=== PATIENT | male | born 1940 | race Caucasian/White ===

== ENCOUNTER 2019-03-18 17:23 | Inpatient (IN) | payer MEDICARE, MEDICAID ==
[~2019-03-18] VITALS: Ht 165.1 cm; Wt 73.5 kg
--- NOTE | 2019-03-18 17:23 | NUR ---
ED Nurse Note: Patient brought by [facility] from [facility] due to upper left pubic pain. Alert oriented x2, verbally responsive. History of Dementia, Schizo paranoid, cardiac arrythmia. Breathing even and unlabored. No SOB. Afebrile. VSS at this time.
[2019-03-18 18:00] VITALS: BP 140/71
[2019-03-18] MEDS ORDERED: Isovue-300 100ml vial INJ PRN (18:00)
[2019-03-18] MEDS ORDERED: Morphine Sulfate 2mg/ml Inj(IV/IM USE ONLY) IVP ONE (18:00)
[2019-03-18] MEDS ORDERED: FINASTERIDE5 MG ORAL (18:15)
[2019-03-18] MEDS ORDERED: MIRTAZAPINE7.5 MG ORAL (18:15)
[2019-03-18] MEDS ORDERED: DOCUSATE SODIU100 M2 ORAL (18:15)
[2019-03-18] MEDS ORDERED: NAMENDA5 MG ORAL (18:15)
[2019-03-18] MEDS ORDERED: CARAFATE1 G1 ORAL (18:15)
[2019-03-18] MEDS ORDERED: RISPERIDONE0.5 MG PO (18:15)
[2019-03-18] MEDS ORDERED: LIPITOR80 MG ORAL (18:15)
[2019-03-18] MEDS ORDERED: FLOMAX0.4 MG ORAL (18:16)
[2019-03-18] MEDS ORDERED: ASPIR 8181 MG ORAL (18:16)
[2019-03-18 18:34] LABS: APPEARANCE,URINE CLEAR; BILIRUBIN, URINE NEGATIVE (NEGATIVE); COLOR,URINE PALE YELLOW; GLUCOSE, URINE (UA) NEGATIVE (NEGATIVE); KETONES,URINE NEGATIVE (NEGATIVE); LEUKOCYTE ESTERASE ,URINE NEGATIVE (NEGATIVE); NITRITE,URINE NEGATIVE (NEGATIVE); PH,URINE 5 (4.5-8.0); PROTEIN,URINE NEGATIVE (NEGATIVE); UROBILINOGEN,URINE NORMAL MG/DL (0.0-1.0)
[2019-03-18 18:38] LABS: EOSINOPHILS % (AUTO) 2.3 % (0.0-3.0); HEMATOCRIT 39.2 % (42.0-52.0); HEMOGLOBIN 13.5 G/DL (14.2-18.0); LYMPHOCYTES % (AUTO) 26.9 % (20.0-45.0); MEAN CORPUSCULAR VOLUME 85 FL (80-99); MONOCYTES % (AUTO) 5.9 % (1.0-10.0); PLATELET COUNT 229 K/UL (150-450); RED BLOOD COUNT 4.61 M/UL (4.70-6.10); RED CELL DISTRIBUTION WIDTH 11.7 % (11.6-14.8); WHITE BLOOD COUNT 9.4 K/UL (4.8-10.8)
--- NOTE | 2019-03-18 18:54 | Consultation ---
History of Present Illness General Date patient seen: Mar 18, 2019 Reason for Hospitalization: Abdominal Pain Present Illness HPI This is a very pleasant 79-year-old male [facility] resident with multiple medical comorbidities who began to complain of lower abdominal pain pelvic pain earlier today and was transferred to [facility] for further evaluation. Patient was identified to have a left-sided groin bulge. In ED was identified to be a left-sided inguinal hernia and surgery was called to evaluate and assist with care. Patient seen, patient evaluated, chart reviewed. Patient is a poor historian and fortunately and cannot give full details of the history. States that he was feeling some pain earlier today but is resolved. Is unsure exactly how long is had the hernia for and is not even sure that it was a hernia. No leukocytosis. Currently only minimal discomfort. Does note the bulge in his left groin. Allergies: Coded Allergies: No Known Allergies (Unverified , 03/18/19) Medication History Scheduled Aspirin* (Aspir 81*), 81 MG ORAL DAILY, (Reported) Atorvastatin (Lipitor), 40 MG ORAL BEDTIME, (Reported) Docusate Sodium (Docusate Sodium), 100 MG ORAL DAILY, (Reported) Finasteride (Finasteride), 5 MG ORAL DAILY, (Reported) Memantine Hcl* (Namenda*), 5 MG ORAL DAILY, (Reported) Mirtazapine* (Mirtazapine*), 7.5 MG ORAL BEDTIME, (Reported) Sucralfate* (Carafate*), 1 GM ORAL FOUR TIMES A DAY, (Reported) Tamsulosin HCl (Flomax), 0.4 MG ORAL DAILY, (Reported) Miscellaneous Medications Risperidone (Risperidone), 0.5 MG PO, (Reported) Patient History Limited by: medical condition History Provided By: Patient, Medical Record, PMD Healthcare decision maker Resuscitation status Advanced Directive on File Past Medical/Surgical History Past Medical/Surgical History: (1) Incarcerated left inguinal hernia Review of Systems Review of Symptoms General ROS: no weight loss or fever Psychological ROS: no depression or mood changes, no memory loss Ophthalmic ROS: no visual changes or eye irritation ENT ROS: no nasal congestion, hearing loss, dizziness Allergy and Immunology ROS: no allergic symptoms or urticaria Hematological and Lymphatic ROS: no swollen glands, unusual bleeding or bruising Endocrine ROS: no polyuria, polydipsia, weight changes, temperature intolerance Respiratory ROS: no cough, shortness of breath, or wheezing Cardiovascular ROS: no chest pain or dyspnea on exertion Gastrointestinal ROS: denies abdominal pain, no bright red blood in stool. Musculoskeletal ROS: no myalgias or arthralgias Neurological ROS: no TIA or stroke symptoms Dermatological ROS: no new or changing skin lesions, rashes or pruritis Physical Exam Physical Exam General appearance: alert, cooperative, no distress, appears stated age Head: Normocephalic, without obvious abnormality, atraumatic Eyes: conjunctivae/corneas clear. PERRL, EOM's intact. Fundi benign Throat: Lips, mucosa, and tongue normal. Teeth and gums normal Neck: supple, symmetrical, trachea midline, no adenopathy, thyroid: not enlarged, symmetric, no tenderness/mass/nodules, no carotid bruit and no JVD Lungs: clear to auscultation bilaterally Heart: regular rate and rhythm, S1, S2 normal, no murmur, click, rub or gallop Abdomen: soft, non-tender. Bowel sounds normal. No masses, no organomegaly large incarcerated left inguinal hernia Extremities: extremities normal, atraumatic, no cyanosis or edema Pulses: 2+ and symmetric Skin: Skin color, texture, turgor normal. No rashes or lesions Neurologic: Grossly normal Last 24 Hour Vital Signs Date Time Temp Pulse Resp B/P (MAP) Pulse Ox O2 Delivery O2 Flow Rate FiO2 03/18/19 18:30 59 10 Room Air 03/18/19 18:00 97.9 58 18 140/71 99 Room Air 03/18/19 17:18 98.1 70 18 110/73 (85) 93 Room Air Laboratory Tests Test 03/18/19 18:00 White Blood Count 9.4 K/UL (4.8-10.8) Red Blood Count 4.61 M/UL (4.70-6.10) L Hemoglobin 13.5 G/DL (14.2-18.0) L Hematocrit 39.2 % (42.0-52.0) L Mean Corpuscular Volume 85 FL (80-99) Mean Corpuscular Hemoglobin 29.3 PG (27.0-31.0) Mean Corpuscular Hemoglobin Concent 34.5 G/DL (32.0-36.0) Red Cell Distribution Width 11.7 % (11.6-14.8) Platelet Count 229 K/UL (150-450) Mean Platelet Volume 6.5 FL (6.5-10.1) Neutrophils (%) (Auto) 64.0 % (45.0-75.0) Lymphocytes (%) (Auto) 26.9 % (20.0-45.0) Monocytes (%) (Auto) 5.9 % (1.0-10.0) Eosinophils (%) (Auto) 2.3 % (0.0-3.0) Basophils (%) (Auto) 1.0 % (0.0-2.0) Prothrombin Time Pending Prothromb Time International Ratio Pending Activated Partial Thromboplast Time Pending Urine Color Pale yellow Urine Appearance Clear Urine pH 5 (4.5-8.0) Urine Specific [place] 1.010 (1.005-1.035) Urine Protein Negative (NEGATIVE) Urine Glucose (UA) Negative (NEGATIVE) Urine Ketones Negative (NEGATIVE) Urine Blood Negative (NEGATIVE) Urine Nitrite Negative (NEGATIVE) Urine Bilirubin Negative (NEGATIVE) Urine Urobilinogen Normal MG/DL (0.0-1.0) Urine Leukocyte Esterase Negative (NEGATIVE) Sodium Level Pending Potassium Level Pending Chloride Level Pending Carbon Dioxide Level Pending Blood Urea Nitrogen Pending Creatinine Pending Estimat Glomerular Filtration Rate Pending Glucose Level Pending Calcium Level Pending Total Bilirubin Pending Aspartate Amino Transf (AST/SGOT) Pending Alanine Aminotransferase (ALT/SGPT) Pending Alkaline Phosphatase Pending Total Protein Pending Albumin Pending Globulin Pending Lipase Pending Height (Feet): 5 Height (Inches): 6.00 Weight (Pounds): 160 Medications Current Medications Medications (Trade) Dose Ordered Sig/Pati Route PRN Reason Start Time Stop Time Status Last Admin Dose Admin Iopamidol (Isovue-300 100ml) 100 ml NOW PRN INJ Radiology Procedure 03/18/19 18:00 Assessment/Plan Problem List: (1) Incarcerated left inguinal hernia Assessment & Plan: This is a 79-year-old male with multiple medical comorbidities is a [facility] resident that presented with lower abdominal pelvic pain and discomfort and bulge. Patient was identified to have a large incarcerated left inguinal hernia. Fortunately with patient's consent I was able to tentatively reduce the hernia at the bedside in the emergency department. Patient states he feels much better. The contents of the hernia sac were noted to enter the abdominal cavity and palpable defect identified. Recommend admission for monitoring, work-up, exams. okay for clear liquid diet AM labs will follow with serial exams if remains reduced can consider elective repair. if incarcerates again, develops abd pain, worsening labs, may require surgery as exact history and timing/onset unknown. fortunately hernia was not very tender when first noted and did not seem strangulated but rather simple incarceration that was reduced without significant discomfort to patient thank you will follow with recs ICD Codes: K40.30 - Unilateral inguinal hernia, with obstruction, without gangrene, not specified as recurrent SNOMED: [id number] Aroldo Mac Mar 18, 2019 18:54
[2019-03-18 19:03] LABS: ANION GAP 8 mmol/L (5-15); BLOOD UREA NITROGEN 24 mg/dL (7-18); CALCIUM 9.3 MG/DL (8.5-10.1); CARBON DIOXIDE 27 MMOL/L (21-32); CHLORIDE 104 MMOL/L (98-107); CREATININE 1.2 MG/DL (0.55-1.30); POTASSIUM 4.1 MMOL/L (3.5-5.1); SODIUM 139 MMOL/L (136-145)
[2019-03-18 19:08] LABS: ALANINE AMINOTRANSFERASE 25 U/L (12-78); ALBUMIN 3.5 G/DL (3.4-5.0); ALBUMIN/GLOBULIN RATIO 0.8 (1.0-2.7); ALKALINE PHOSPHATASE 46 U/L (46-116); ASPARTATE AMINO TRANSFERASE 16 U/L (15-37); BILIRUBIN,TOTAL 0.3 MG/DL (0.2-1.0)
--- NOTE | 2019-03-18 19:13 | NUR ---
ED Nurse Note: Report given to LIANA Luis. Patient in bed. IV site on left forearm remained intact.
--- NOTE | 2019-03-18 20:24 | Diagnostic Imaging Report ---
Indication: Left pubic pain Technique: Continuous helical transaxial imaging of the abdomen and pelvis was obtained from the lung bases to the pubic symphysis during intravenous contrast administration. Coronal 2-D reformats were also obtained. Study obtained in a Siemens sensation [address] Automatic Exposure Control was utilized. Total Dose length Product (DLP): 824.[address] Dose Index Volume (CTDIvol): 11.12,10.75 mGy Comparison: None Findings: Lower chest:: Dependent bibasilar atelectasis. Mild coronary atherosclerotic calcification. Aortic valve is calcified. Hepatobiliary:: Scattered hepatic hypodensities likely represent liver cysts but are too small to accurately characterize on this examination. Status post cholecystectomy. Genitourinary:: No hydronephrosis or nephrolithiasis. Prostate is enlarged. Adrenals:: Right adrenal gland is unremarkable. There is a 8 mm hypodense left adrenal nodule. Pancreas:: Unremarkable. Gastrointestinal:: No evidence of obstruction. Appendix is not clearly is less but there are no secondary signs to suggest acute appendicitis. There is mild haziness of the mesentery in the left lower quadrant, nonspecific finding. Spleen: : Remarkable. Peritoneum:: There is a moderate-sized left inguinal hernia containing nonobstructed loops of small bowel. Vasculature:: Moderate aortoiliac atherosclerotic calcifications. There is ectasia of the descending abdominal aorta above the level of the iliac bifurcation, measuring up to 2.2 cm. Bones and soft tissues:: There are multilevel discogenic degenerative changes of visualized spine. There is mild loss in vertebral body height of L1. IMPRESSION: 1. Moderate left inguinal hernia containing nonobstructed loops of bowel. 2. Haziness of the mesentery left lower quadrant, a nonspecific finding but which can sometimes be seen with abdominal pain. 3. Prostatomegaly. 4. 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 5. Age indeterminate wedge deformity of L1. 6. 8 mm left adrenal nodule, likely representing an adenoma based on attenuation characteristics. Attention to this area on follow-up imaging is recommended. This corresponds with the statrad preliminary report. The CT scanner at [facility] is accredited by the [employer] and the scans are performed using protocols designed to limit radiation exposure to as low as reasonably achievable to attain images of sufficient resolution adequate for diagnostic evaluation.
[2019-03-18 20:28] VITALS: BP 136/74
--- NOTE | 2019-03-18 20:30 | NUR ---
ER Nurse Note: Report given to LIANA Gandhi in [place] for contintuiy of care. Pt a&ox2, VSS, no signs of distress. Pt is upset about the wait time getting a room. Explained to pt about the bed arrangement; pt was still upset. Pt refused all swabs. Pt left with all belongs but does not fully remember what he brought. Pt refused to sign belongings list and stated " I will not sign anything without my glassess". When asked about glasses, pt stated he did not bring this glasses. All safety measures met.
--- NOTE | 2019-03-18 20:45 | NUR ---
NURSE NOTES: patient received. patient in no acute [id number] at this time. patient complains of no pain at this time. patient alert x2. confused at times. patient IV intact patent and asymptomatic. Dr. Aranda called to get orders for patient. patient bed in lowest position and locked. bed alarm on. call light within reach. Patient belongings sheet signed. patient oriented to room. will continue to monitor.
--- NOTE | 2019-03-18 20:51 | Emergency Room Report ---
History of Present Illness General Chief Complaint: Abdominal Pain Source: Patient, Medical Record, PMD Present Illness HPI 79 year-old male presents ED for evaluation. By EMS from shelter facility. Sent in for "pubic pain". Started today. Pain is throbbing, 8 out of 10, nonradiating. Denies fevers or chills. Denies nausea or vomiting. No other aggravating relieving factors. Denies any other associated symptoms Allergies: Coded Allergies: No Known Allergies (Unverified , 03/18/19) Patient History Past Medical History: none Past Surgical History: none Pertinent Family History: none Social History: Denies: smoking, alcohol use, drug use Immunizations: UTD Reviewed Nursing Documentation: PMH: Agreed; PSxH: Agreed Nursing Documentation-PMH Past Medical History Deferred: Pt Cognitively Impaired Review of Systems All Other Systems: negative except mentioned in HPI Physical Exam Vital Signs Date Time Temp Pulse Resp B/P (MAP) Pulse Ox O2 Delivery O2 Flow Rate FiO2 03/18/19 17:18 98.1 70 18 110/73 (85) 93 Room Air Sp02 EP Interpretation: reviewed, normal General Appearance: no apparent distress, alert, GCS 15, non-toxic Head: normocephalic, atraumatic Eyes: bilateral eye normal inspection, bilateral eye PERRL ENT: hearing grossly normal, normal pharynx, no angioedema, normal voice Neck: full range of motion, supple/symm/no masses Respiratory: chest non-tender, lungs clear, normal breath sounds, speaking full sentences Cardiovascular #1: regular rate, rhythm, no edema Cardiovascular #2: 2+ carotid (R), 2+ carotid (L), 2+ radial (R), 2+ radial (L) , 2+ dorsalis pedis (R), 2+ dorsalis pedis (L) Gastrointestinal: normal bowel sounds, soft, non-distended, no guarding, no rebound, hernia - L inguinal hernia Rectal: deferred Genitourinary: normal inspection, no CVA tenderness Musculoskeletal: back normal, gait/station normal, normal range of motion, non- tender Neurologic: alert, oriented x3, responsive, motor strength/tone normal, sensory intact, speech normal Psychiatric: judgement/insight normal, memory normal, mood/affect normal, no suicidal/homicidal ideation Reflexes: 3+ bicep (R), 3+ bicep (L), 3+ tricep (R), 3+ tricep (L), 3+ knee (R) , 3+ knee (L) Lymphatic: no adenopathy Medical Decision Making Diagnostic Impression: Primary Impression: Incarcerated left inguinal hernia ER Course Hospital Course 79 yo M presents to ED c/o L inguinal pain Differential diagnoses include: abscess, hernia, SBO Clinical course Patient placed on stretcher. personnel monitor. After initial history and physical I ordered labs, IV fluids, UA, pain medication and CT scan Labs - no leukocytosis, Hb/Hct stable, electrolytes ok CT abdomen and pelvis -L inguinal heria Dr Fang at bedside to evaluate patient Case discussed with Dr. Aranda and he agreed to accept the patient to his service for further care and support I feel this is a highly complex case requiring extensive working including EKG/ Rhythm strip, Xray/CT/US, Blood/urine lab work, repeat exams while in ED, and administration of strong opiates/narcotics for pain control, admission to hospital or close patient follow up. Diagnosis - incarcerated L inguinal hernia Patient admitted to floor in serious condition Labs Test 03/18/19 18:00 White Blood Count 9.4 K/UL (4.8-10.8) Red Blood Count 4.61 M/UL (4.70-6.10) Hemoglobin 13.5 G/DL (14.2-18.0) Hematocrit 39.2 % (42.0-52.0) Mean Corpuscular Volume 85 FL (80-99) Mean Corpuscular Hemoglobin 29.3 PG (27.0-31.0) Mean Corpuscular Hemoglobin Concent 34.5 G/DL (32.0-36.0) Red Cell Distribution Width 11.7 % (11.6-14.8) Platelet Count 229 K/UL (150-450) Mean Platelet Volume 6.5 FL (6.5-10.1) Neutrophils (%) (Auto) 64.0 % (45.0-75.0) Lymphocytes (%) (Auto) 26.9 % (20.0-45.0) Monocytes (%) (Auto) 5.9 % (1.0-10.0) Eosinophils (%) (Auto) 2.3 % (0.0-3.0) Basophils (%) (Auto) 1.0 % (0.0-2.0) Prothrombin Time 10.3 SEC (9.30-11.50) Prothromb Time International Ratio 1.0 (0.9-1.1) Activated Partial Thromboplast Time 29 SEC (23-33) Urine Color Pale yellow Urine Appearance Clear Urine pH 5 (4.5-8.0) Urine Specific [place] 1.010 (1.005-1.035) Urine Protein Negative (NEGATIVE) Urine Glucose (UA) Negative (NEGATIVE) Urine Ketones Negative (NEGATIVE) Urine Blood Negative (NEGATIVE) Urine Nitrite Negative (NEGATIVE) Urine Bilirubin Negative (NEGATIVE) Urine Urobilinogen Normal MG/DL (0.0-1.0) Urine Leukocyte Esterase Negative (NEGATIVE) Sodium Level 139 MMOL/L (136-145) Potassium Level 4.1 MMOL/L (3.5-5.1) Chloride Level 104 MMOL/L (98-107) Carbon Dioxide Level 27 MMOL/L (21-32) Anion Gap 8 mmol/L (5-15) Blood Urea Nitrogen 24 mg/dL (7-18) Creatinine 1.2 MG/DL (0.55-1.30) Estimat Glomerular Filtration Rate mL/min (>60) Glucose Level 100 MG/DL (74-106) Calcium Level 9.3 MG/DL (8.5-10.1) Total Bilirubin 0.3 MG/DL (0.2-1.0) Aspartate Amino Transf (AST/SGOT) 16 U/L (15-37) Alanine Aminotransferase (ALT/SGPT) 25 U/L (12-78) Alkaline Phosphatase 46 U/L (46-116) Total Protein 7.8 G/DL (6.4-8.2) Albumin 3.5 G/DL (3.4-5.0) Globulin 4.3 g/dL Albumin/Globulin Ratio 0.8 (1.0-2.7) Lipase 234 U/L (73-393) CT/MRI/US Diagnostic Results CT/MRI/US Diagnostic Results : Imaging Test Ordered: CT A/P Impression Left inguinal-scrotal hernia containing fat and bowel. No secondary bowel obstruction. Correlate for signs of incarceration or strangulation. There is some edema in the mesentery. Last Vital Signs Date Time Temp Pulse Resp B/P (MAP) Pulse Ox O2 Delivery O2 Flow Rate FiO2 03/18/19 20:28 98.3 62 14 136/74 99 Room Air Status: improved Disposition: ADMITTED INPATIENT Condition: Serious Referrals: Mg Aranda DO (PCP) Jaren Milner MD Mar 18, 2019 20:51
[2019-03-18] MEDS ORDERED: Dextrose 50% 25ml Syringe IV PRN (21:15)
[2019-03-18] MEDS ORDERED: Morphine Sulfate 2mg/ml Inj(IV/IM USE ONLY) IVP PRN (21:15)
[2019-03-18] MEDS ORDERED: LORazepam Inj 2mg/ml 1ml IV PRN (21:15)
[2019-03-18] MEDS ORDERED: Zolpidem 5mg tab ORAL PRN (21:15)
--- NOTE | 2019-03-19 01:18 | NUR ---
HAND-OFF: Report given to LIANA BLANCHARD.
[2019-03-19 04:00] VITALS: BP 126/74
[2019-03-19 06:47] LABS: EOSINOPHILS % (AUTO) 3.7 % (0.0-3.0); HEMATOCRIT 40.6 % (42.0-52.0); HEMOGLOBIN 13.7 G/DL (14.2-18.0); LYMPHOCYTES % (AUTO) 29.9 % (20.0-45.0); MEAN CORPUSCULAR VOLUME 88 FL (80-99); MONOCYTES % (AUTO) 6.3 % (1.0-10.0); NEUTROPHILS % (AUTO) 59.1 % (45.0-75.0); PLATELET COUNT 256 K/UL (150-450); RED BLOOD COUNT 4.64 M/UL (4.70-6.10); RED CELL DISTRIBUTION WIDTH 12.3 % (11.6-14.8); WHITE BLOOD COUNT 7.5 K/UL (4.8-10.8)
[2019-03-19 07:24] LABS: ALANINE AMINOTRANSFERASE 12 U/L (12-78); ALBUMIN 3.3 G/DL (3.4-5.0); ALBUMIN/GLOBULIN RATIO 0.8 (1.0-2.7); ALKALINE PHOSPHATASE 46 U/L (46-116); ANION GAP 7 mmol/L (5-15); ASPARTATE AMINO TRANSFERASE 14 U/L (15-37); BILIRUBIN,TOTAL 0.6 MG/DL (0.2-1.0); BLOOD UREA NITROGEN 20 mg/dL (7-18); CALCIUM 8.9 MG/DL (8.5-10.1); CARBON DIOXIDE 27 MMOL/L (21-32); CHLORIDE 105 MMOL/L (98-107); CHOLESTEROL 144 MG/DL (< 200); CREATININE 1.4 MG/DL (0.55-1.30); HDL CHOLESTEROL 34 MG/DL (40-60); POTASSIUM 4.1 MMOL/L (3.5-5.1); SODIUM 139 MMOL/L (136-145); TRIGLYCERIDES 134 MG/DL (30-150)
[2019-03-19 08:00] VITALS: BP_SYST 91; BP_SYST 96; BP_DIAS 53; BP_DIAS 59
--- NOTE | 2019-03-19 08:00 | NUR ---
NURSE NOTES: Received report from Gold Flores pt a/a/o x2-3 laying in bed with no signs of distress or other issues at this time. IV on the left FA gauge#22 heplock. skin intact. pt on a regular diet, and tolerating well with no n/v. plan for Venous duplex today. call light within reach. bed in lowest position. side rales up x2. I will f/u as needed.
[2019-03-19] MEDS: Tamsulosin 0.4mg cap ORAL SCH (09:13)
[2019-03-19 12:00] VITALS: BP 91/5
--- NOTE | 2019-03-19 12:00 | Surgery Progress Note ---
Surgery Progress Note Subjective Symptoms: improved, tolerating diet, voiding well, passing flatus, pain decreased Additional Comments left inguinal hernia recurred this AM but reduced again easily no n/v/f/c tolerating diet ambulatory CT noted Objective Last 24 Hour Vital Signs Date Time Temp Pulse Resp B/P (MAP) Pulse Ox O2 Delivery O2 Flow Rate FiO2 03/19/19 04:00 98.6 61 16 126/74 (91) 98 03/18/19 21:59 Room Air 03/18/19 20:40 98.3 62 14 136/74 99 Room Air 03/18/19 20:28 98.3 62 14 136/74 99 Room Air 03/18/19 18:45 98.1 03/18/19 18:30 59 10 Room Air 03/18/19 18:00 97.9 58 18 140/71 99 Room Air 03/18/19 17:18 98.1 70 18 110/73 (85) 93 Room Air I&O Intake and Output 03/18/19 03/19/19 19:00 07:00 Intake Total 500 ml 360 ml Balance 500 ml 360 ml Intake Oral 360 ml IV Total 500 ml # Voids 1 3 Cardiovascular: RSR Respiratory: clear Abdomen: soft, flat, present bowel sounds, non-distended Extremities: no cyanosis Laboratory Tests Test 03/18/19 18:00 03/19/19 05:35 White Blood Count 9.4 K/UL (4.8-10.8) 7.5 K/UL (4.8-10.8) Red Blood Count 4.61 M/UL (4.70-6.10) L 4.64 M/UL (4.70-6.10) L Hemoglobin 13.5 G/DL (14.2-18.0) L 13.7 G/DL (14.2-18.0) L Hematocrit 39.2 % (42.0-52.0) L 40.6 % (42.0-52.0) L Mean Corpuscular Volume 85 FL (80-99) 88 FL (80-99) Mean Corpuscular Hemoglobin 29.3 PG (27.0-31.0) 29.6 PG (27.0-31.0) Mean Corpuscular Hemoglobin Concent 34.5 G/DL (32.0-36.0) 33.8 G/DL (32.0-36.0) Red Cell Distribution Width 11.7 % (11.6-14.8) 12.3 % (11.6-14.8) Platelet Count 229 K/UL (150-450) 256 K/UL (150-450) Mean Platelet Volume 6.5 FL (6.5-10.1) 6.3 FL (6.5-10.1) L Neutrophils (%) (Auto) 64.0 % (45.0-75.0) 59.1 % (45.0-75.0) Lymphocytes (%) (Auto) 26.9 % (20.0-45.0) 29.9 % (20.0-45.0) Monocytes (%) (Auto) 5.9 % (1.0-10.0) 6.3 % (1.0-10.0) Eosinophils (%) (Auto) 2.3 % (0.0-3.0) 3.7 % (0.0-3.0) H Basophils (%) (Auto) 1.0 % (0.0-2.0) 1.0 % (0.0-2.0) Prothrombin Time 10.3 SEC (9.30-11.50) 10.6 SEC (9.30-11.50) Prothromb Time International Ratio 1.0 (0.9-1.1) 1.0 (0.9-1.1) Activated Partial Thromboplast Time 29 SEC (23-33) 29 SEC (23-33) Urine Color Pale yellow Urine Appearance Clear Urine pH 5 (4.5-8.0) Urine Specific [place] 1.010 (1.005-1.035) Urine Protein Negative (NEGATIVE) Urine Glucose (UA) Negative (NEGATIVE) Urine Ketones Negative (NEGATIVE) Urine Blood Negative (NEGATIVE) Urine Nitrite Negative (NEGATIVE) Urine Bilirubin Negative (NEGATIVE) Urine Urobilinogen Normal MG/DL (0.0-1.0) Urine Leukocyte Esterase Negative (NEGATIVE) Sodium Level 139 MMOL/L (136-145) 139 MMOL/L (136-145) Potassium Level 4.1 MMOL/L (3.5-5.1) 4.1 MMOL/L (3.5-5.1) Chloride Level 104 MMOL/L (98-107) 105 MMOL/L (98-107) Carbon Dioxide Level 27 MMOL/L (21-32) 27 MMOL/L (21-32) Anion Gap 8 mmol/L (5-15) 7 mmol/L (5-15) Blood Urea Nitrogen 24 mg/dL (7-18) H 20 mg/dL (7-18) H Creatinine 1.2 MG/DL (0.55-1.30) 1.4 MG/DL (0.55-1.30) H Estimat Glomerular Filtration Rate mL/min (>60) mL/min (>60) Glucose Level 100 MG/DL (74-106) 80 MG/DL (74-106) Calcium Level 9.3 MG/DL (8.5-10.1) 8.9 MG/DL (8.5-10.1) Total Bilirubin 0.3 MG/DL (0.2-1.0) 0.6 MG/DL (0.2-1.0) Aspartate Amino Transf (AST/SGOT) 16 U/L (15-37) 14 U/L (15-37) L Alanine Aminotransferase (ALT/SGPT) 25 U/L (12-78) 12 U/L (12-78) Alkaline Phosphatase 46 U/L (46-116) 46 U/L (46-116) Total Protein 7.8 G/DL (6.4-8.2) 7.6 G/DL (6.4-8.2) Albumin 3.5 G/DL (3.4-5.0) 3.3 G/DL (3.4-5.0) L Globulin 4.3 g/dL 4.3 g/dL Albumin/Globulin Ratio 0.8 (1.0-2.7) L 0.8 (1.0-2.7) L Lipase 234 U/L (73-393) Triglycerides Level 134 MG/DL (30-150) Cholesterol Level 144 MG/DL (< 200) LDL Cholesterol 83 mg/dL (<100) HDL Cholesterol 34 MG/DL (40-60) L Cholesterol/HDL Ratio 4.2 (3.3-4.4) Thyroid Stimulating Hormone (TSH) 1.690 uiU/mL (0.358-3.740) Plan Problems: (1) Incarcerated left inguinal hernia Assessment & Plan: This is a 79-year-old male with multiple medical comorbidities is a care home resident that presented with lower abdominal pelvic pain and discomfort and bulge. Patient was identified to have a large incarcerated left inguinal hernia. Fortunately with patient's consent I was able to tentatively reduce the hernia at the bedside in the emergency department. Patient states he feels much better. The contents of the hernia sac were noted to enter the abdominal cavity and palpable defect identified. Recommend admission for monitoring, work-up, exams. okay for clear liquid diet AM labs will follow with serial exams if remains reduced can consider elective repair. if incarcerates again, develops abd pain, worsening labs, may require surgery as exact history and timing/onset unknown. fortunately hernia was not very tender when first noted and did not seem strangulated but rather simple incarceration that was reduced without significant discomfort to patient thank you will follow with recs given hernia and size and scrotal in care home patient would recommend repair patient reluctant to have surgery at this time will respect wishes. discussed with team will see if POA and ensure proper care plan Aroldo Mac Mar 19, 2019 12:00
--- NOTE | 2019-03-19 13:40 | Diagnostic Imaging Report ---
APPROVED REPORT CPT Code: 15653 Present Symptoms Comments: Screening BILATERAL: Imaging reveals a patent deep venous system bilaterally. There is no evidence of thrombus within the common femoral, superficial femoral, popliteal or tibial segments. The greater saphenous veins are within normal limits. Doppler indicates normal spontaneous flow within these segments.
[2019-03-19 16:00] VITALS: BP 115/65
--- NOTE | 2019-03-19 17:35 | Consultation ---
History of Present Illness General Chief Complaint: Abdominal Pain Present Illness Allergies: Coded Allergies: No Known Allergies (Unverified , 03/18/19) Medication History Scheduled Aspirin* (Aspir 81*), 81 MG ORAL DAILY, (Reported) Atorvastatin (Lipitor), 40 MG ORAL BEDTIME, (Reported) Docusate Sodium (Docusate Sodium), 100 MG ORAL DAILY, (Reported) Finasteride (Finasteride), 5 MG ORAL DAILY, (Reported) Memantine Hcl* (Namenda*), 5 MG ORAL DAILY, (Reported) Mirtazapine* (Mirtazapine*), 7.5 MG ORAL BEDTIME, (Reported) Sucralfate* (Carafate*), 1 GM ORAL FOUR TIMES A DAY, (Reported) Tamsulosin HCl (Flomax), 0.4 MG ORAL DAILY, (Reported) Miscellaneous Medications Risperidone (Risperidone), 0.5 MG PO, (Reported) Patient History Healthcare decision maker SELF Resuscitation status Advanced Directive on File Physical Exam Last 24 Hour Vital Signs Date Time Temp Pulse Resp B/P (MAP) Pulse Ox O2 Delivery O2 Flow Rate FiO2 03/19/19 16:00 97.5 58 18 115/65 (82) 96 03/19/19 12:00 98.0 58 20 91/5 (33) 95 03/19/19 09:00 Room Air 03/19/19 08:00 98.1 58 18 96/59 (71) 94 03/19/19 04:00 98.6 61 16 126/74 (91) 98 03/18/19 21:59 Room Air 03/18/19 20:40 98.3 62 14 136/74 99 Room Air 03/18/19 20:28 98.3 62 14 136/74 99 Room Air 03/18/19 18:45 98.1 03/18/19 18:30 59 10 Room Air 03/18/19 18:00 97.9 58 18 140/71 99 Room Air Intake and Output 03/18/19 03/19/19 18:59 06:59 Intake Total 500 ml 360 ml Balance 500 ml 360 ml Intake Oral 360 ml IV Total 500 ml # Voids 1 3 Laboratory Tests Test 03/18/19 18:00 03/19/19 05:35 White Blood Count 9.4 K/UL (4.8-10.8) 7.5 K/UL (4.8-10.8) Red Blood Count 4.61 M/UL (4.70-6.10) L 4.64 M/UL (4.70-6.10) L Hemoglobin 13.5 G/DL (14.2-18.0) L 13.7 G/DL (14.2-18.0) L Hematocrit 39.2 % (42.0-52.0) L 40.6 % (42.0-52.0) L Mean Corpuscular Volume 85 FL (80-99) 88 FL (80-99) Mean Corpuscular Hemoglobin 29.3 PG (27.0-31.0) 29.6 PG (27.0-31.0) Mean Corpuscular Hemoglobin Concent 34.5 G/DL (32.0-36.0) 33.8 G/DL (32.0-36.0) Red Cell Distribution Width 11.7 % (11.6-14.8) 12.3 % (11.6-14.8) Platelet Count 229 K/UL (150-450) 256 K/UL (150-450) Mean Platelet Volume 6.5 FL (6.5-10.1) 6.3 FL (6.5-10.1) L Neutrophils (%) (Auto) 64.0 % (45.0-75.0) 59.1 % (45.0-75.0) Lymphocytes (%) (Auto) 26.9 % (20.0-45.0) 29.9 % (20.0-45.0) Monocytes (%) (Auto) 5.9 % (1.0-10.0) 6.3 % (1.0-10.0) Eosinophils (%) (Auto) 2.3 % (0.0-3.0) 3.7 % (0.0-3.0) H Basophils (%) (Auto) 1.0 % (0.0-2.0) 1.0 % (0.0-2.0) Prothrombin Time 10.3 SEC (9.30-11.50) 10.6 SEC (9.30-11.50) Prothromb Time International Ratio 1.0 (0.9-1.1) 1.0 (0.9-1.1) Activated Partial Thromboplast Time 29 SEC (23-33) 29 SEC (23-33) Urine Color Pale yellow Urine Appearance Clear Urine pH 5 (4.5-8.0) Urine Specific [place] 1.010 (1.005-1.035) Urine Protein Negative (NEGATIVE) Urine Glucose (UA) Negative (NEGATIVE) Urine Ketones Negative (NEGATIVE) Urine Blood Negative (NEGATIVE) Urine Nitrite Negative (NEGATIVE) Urine Bilirubin Negative (NEGATIVE) Urine Urobilinogen Normal MG/DL (0.0-1.0) Urine Leukocyte Esterase Negative (NEGATIVE) Sodium Level 139 MMOL/L (136-145) 139 MMOL/L (136-145) Potassium Level 4.1 MMOL/L (3.5-5.1) 4.1 MMOL/L (3.5-5.1) Chloride Level 104 MMOL/L (98-107) 105 MMOL/L (98-107) Carbon Dioxide Level 27 MMOL/L (21-32) 27 MMOL/L (21-32) Anion Gap 8 mmol/L (5-15) 7 mmol/L (5-15) Blood Urea Nitrogen 24 mg/dL (7-18) H 20 mg/dL (7-18) H Creatinine 1.2 MG/DL (0.55-1.30) 1.4 MG/DL (0.55-1.30) H Estimat Glomerular Filtration Rate mL/min (>60) mL/min (>60) Glucose Level 100 MG/DL (74-106) 80 MG/DL (74-106) Calcium Level 9.3 MG/DL (8.5-10.1) 8.9 MG/DL (8.5-10.1) Total Bilirubin 0.3 MG/DL (0.2-1.0) 0.6 MG/DL (0.2-1.0) Aspartate Amino Transf (AST/SGOT) 16 U/L (15-37) 14 U/L (15-37) L Alanine Aminotransferase (ALT/SGPT) 25 U/L (12-78) 12 U/L (12-78) Alkaline Phosphatase 46 U/L (46-116) 46 U/L (46-116) Total Protein 7.8 G/DL (6.4-8.2) 7.6 G/DL (6.4-8.2) Albumin 3.5 G/DL (3.4-5.0) 3.3 G/DL (3.4-5.0) L Globulin 4.3 g/dL 4.3 g/dL Albumin/Globulin Ratio 0.8 (1.0-2.7) L 0.8 (1.0-2.7) L Lipase 234 U/L (73-393) Triglycerides Level 134 MG/DL (30-150) Cholesterol Level 144 MG/DL (< 200) LDL Cholesterol 83 mg/dL (<100) HDL Cholesterol 34 MG/DL (40-60) L Cholesterol/HDL Ratio 4.2 (3.3-4.4) Thyroid Stimulating Hormone (TSH) 1.690 uiU/mL (0.358-3.740) Height (Feet): 5 Height (Inches): 5.00 Weight (Pounds): 158 Medications Current Medications Medications (Trade) Dose Ordered Sig/Pati Route PRN Reason Start Time Stop Time Status Last Admin Dose Admin Acetaminophen (Tylenol) 650 mg Q4H PRN ORAL fever 03/18/19 21:15 04/17/19 21:14 Dextrose (Dextrose 50%) 25 ml Q30M PRN IV Hypoglycemia 03/18/19 21:15 04/17/19 21:07 Dextrose (Dextrose 50%) 50 ml Q30M PRN IV hypoglycemia 03/18/19 21:15 04/17/19 21:14 Finasteride (Proscar) 5 mg DAILY ORAL 03/19/19 09:00 04/18/19 08:59 03/19/19 09:13 Iopamidol (Isovue-300 100ml) 100 ml NOW PRN INJ Radiology Procedure 03/18/19 18:00 Lorazepam (Ativan 2mg/ml 1ml) 0.5 mg Q4H PRN IV For Anxiety 03/18/19 21:15 03/25/19 21:14 Mirtazapine (Remeron) 7.5 mg BEDTIME ORAL 03/19/19 21:00 04/18/19 20:59 Morphine Sulfate (Morphine Sulfate) 1 mg Q4H PRN IVP For Pain 03/18/19 21:15 03/25/19 21:14 Ondansetron HCl (Zofran) 4 mg Q6H PRN IVP Nausea & Vomiting 03/18/19 21:15 04/17/19 21:14 Polyethylene Glycol (Miralax) 17 gm HSPRN PRN ORAL Constipation 03/18/19 21:15 04/17/19 21:14 Tamsulosin HCl (Flomax) 0.4 mg DAILY ORAL 03/19/19 09:00 04/18/19 08:59 03/19/19 09:13 Zolpidem Tartrate (Ambien) 5 mg HSPRN PRN ORAL Insomnia 03/18/19 21:15 03/25/19 21:14 Katarzyna Escobedo MD Mar 19, 2019 17:35
--- NOTE | 2019-03-19 17:41 | NUR ---
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 98.0 HR 70 RR 18 B/P 100/73 BUN 24 ABD/PEL CT=Left inguinal-scrotal hernia containing fat and bowel. No secondary bowel obstruction. Correlate for signs of incarceration or strangulation. There is some edema in the mesentery. IS: IV BOLUS NS X 500ML MORPHINE IV ADMITTED TO MED/SURG MED/SURG STATUS DCP RETURN TO [facility]
--- NOTE | 2019-03-19 18:00 | History and Physical Report ---
DATE OF ADMISSION: 03/18/2019 DATE AND TIME SEEN: 03/19/2019 at 2 p.m. CONSULTANTS: 1. Katarzyna Escobedo M.D. 2. Aroldo Mac M.D. 3. Gregor Flores M.D. 4. Valentino Bryan M.D. CHIEF COMPLAINT: Abdominal pain and acute hernia. BRIEF HISTORY: This is an 79-year-old male from [facility], who presented with slight abdominal pain and inguinal pain as well and swelling. The patient came to [facility], diagnosed with acute hernia and admitted to medical floor for further treatment. Initially, the hernia was reduced by surgeon, but it returned. Currently, calm in bed, confused, not talking much. REVIEW OF SYSTEMS: Unavailable. PAST MEDICAL HISTORY: Includes arthritis, hyperlipidemia, BPH, weakness, depression, and schizophrenia. PAST SURGICAL HISTORY: Appendectomy. ALLERGIES: Denies. MEDICATIONS: Include Remeron, Proscar, Flomax, Tylenol, MiraLAX, Zofran, and Ambien. SOCIAL HISTORY: No smoking. No alcohol. No intravenous drug abuse. FAMILY HISTORY: Noncontributory. PHYSICAL EXAMINATION: GENERAL: Calm in bed, oriented x2, in no acute distress. VITAL SIGNS: Temperature is 98 degrees, pulse 58, respirations 20, and blood pressure 91/50. CARDIOVASCULAR: No murmurs. LUNGS: Distant and clear. ABDOMEN: Positive bowel sounds. Nondistended. There is noted to be left side slight swelling about 2 inch x 2 inch. Slightly tender. No guarding. No rigidity. EXTREMITIES: No cyanosis or edema. NEUROLOGIC: The patient moves all extremities, slightly weak. LABORATORY AND DIAGNOSTIC DATA: Labs at this time show H and H 13/40, otherwise CBC normal. BMP shows BUN and creatinine 20/1.4. INR is 1.2. Urinalysis is negative. ASSESSMENT: 1. Abdominal pain. 2. Acute hernia. 3. . 4. BPH. 5. Weakness. 6. Depression. 7. Schizophrenia. PLAN: 1. Pain control. 2. PT and dietary evaluation. 3. CBC and BMP in the morning. 4. Surgery followup, possible surgery. 5. We will continue to follow this patient. Mg Aranda D.O. DR: CHEYANNE JOB#: [id number] CC:
--- NOTE | 2019-03-19 18:57 | Cardiology Progress Note ---
Assessment/Plan Assessment/Plan The patient is seen and examined, full consult note is dictated. Objective Last 24 Hour Vital Signs Date Time Temp Pulse Resp B/P (MAP) Pulse Ox O2 Delivery O2 Flow Rate FiO2 03/19/19 16:00 97.5 58 18 115/65 (82) 96 03/19/19 12:00 98.0 58 20 91/5 (33) 95 03/19/19 09:00 Room Air 03/19/19 08:00 98.1 58 18 96/59 (71) 94 03/19/19 04:00 98.6 61 16 126/74 (91) 98 03/18/19 21:59 Room Air 03/18/19 20:40 98.3 62 14 136/74 99 Room Air 03/18/19 20:28 98.3 62 14 136/74 99 Room Air Intake and Output 03/18/19 03/19/19 18:59 06:59 Intake Total 500 ml 360 ml Balance 500 ml 360 ml Intake Oral 360 ml IV Total 500 ml # Voids 1 3 Laboratory Tests Test 03/19/19 05:35 White Blood Count 7.5 K/UL (4.8-10.8) Red Blood Count 4.64 M/UL (4.70-6.10) L Hemoglobin 13.7 G/DL (14.2-18.0) L Hematocrit 40.6 % (42.0-52.0) L Mean Corpuscular Volume 88 FL (80-99) Mean Corpuscular Hemoglobin 29.6 PG (27.0-31.0) Mean Corpuscular Hemoglobin Concent 33.8 G/DL (32.0-36.0) Red Cell Distribution Width 12.3 % (11.6-14.8) Platelet Count 256 K/UL (150-450) Mean Platelet Volume 6.3 FL (6.5-10.1) L Neutrophils (%) (Auto) 59.1 % (45.0-75.0) Lymphocytes (%) (Auto) 29.9 % (20.0-45.0) Monocytes (%) (Auto) 6.3 % (1.0-10.0) Eosinophils (%) (Auto) 3.7 % (0.0-3.0) H Basophils (%) (Auto) 1.0 % (0.0-2.0) Prothrombin Time 10.6 SEC (9.30-11.50) Prothromb Time International Ratio 1.0 (0.9-1.1) Activated Partial Thromboplast Time 29 SEC (23-33) Sodium Level 139 MMOL/L (136-145) Potassium Level 4.1 MMOL/L (3.5-5.1) Chloride Level 105 MMOL/L (98-107) Carbon Dioxide Level 27 MMOL/L (21-32) Anion Gap 7 mmol/L (5-15) Blood Urea Nitrogen 20 mg/dL (7-18) H Creatinine 1.4 MG/DL (0.55-1.30) H Estimat Glomerular Filtration Rate mL/min (>60) Glucose Level 80 MG/DL (74-106) Calcium Level 8.9 MG/DL (8.5-10.1) Total Bilirubin 0.6 MG/DL (0.2-1.0) Aspartate Amino Transf (AST/SGOT) 14 U/L (15-37) L Alanine Aminotransferase (ALT/SGPT) 12 U/L (12-78) Alkaline Phosphatase 46 U/L (46-116) Total Protein 7.6 G/DL (6.4-8.2) Albumin 3.3 G/DL (3.4-5.0) L Globulin 4.3 g/dL Albumin/Globulin Ratio 0.8 (1.0-2.7) L Triglycerides Level 134 MG/DL (30-150) Cholesterol Level 144 MG/DL (< 200) LDL Cholesterol 83 mg/dL (<100) HDL Cholesterol 34 MG/DL (40-60) L Cholesterol/HDL Ratio 4.2 (3.3-4.4) Thyroid Stimulating Hormone (TSH) 1.690 uiU/mL (0.358-3.740) Gregor Flores MD Mar 19, 2019 18:57
--- NOTE | 2019-03-19 19:28 | NUR ---
HAND-OFF: Report given to Dawn GAINES. pt in stable condition. - RN called multiples to pt's SNF at [facility] however I was unable to get hold of anyone.
[2019-03-19 20:00] VITALS: BP 108/60
--- NOTE | 2019-03-19 20:00 | NUR ---
NURSE NOTES: Received patient comfortably resting in bed without complaints.
--- NOTE | 2019-03-19 21:30 | Consultation ---
DATE OF CONSULTATION: 03/18/2019 CARDIOLOGY CONSULTATION CONSULTING PHYSICIAN: Gregor Flores M.D. REFERRING PHYSICIAN: Mg Aranda D.O. REASON FOR CONSULTATION: Management of preoperative cardiac assessment for possible noncardiac surgery. HISTORY OF PRESENT ILLNESS: The patient is a very unfortunate 79-year-old gentleman, resident of a [facility] facility, who was brought in by EMS for evaluation and management of pubic pain. The patient states that the pain had been going on for just about a day not associated with any fever, chills, nausea, and vomiting. In the emergency department, upon arrival, blood pressure was 110/73 mmHg and heart rate was 70. The patient was afebrile. Initial laboratory finding in the emergency department was significant for BUN and creatinine of 24 and 1.2 respectively. The patient also had a lipid panel, which revealed low HDL at 34 and LDL of 83. The patient's coronary artery disease risk factors includes age and hyperlipidemia. The patient underwent further workup of pubic pain and had a CT of abdomen and pelvis, which showed cholecystectomy with presence of a left inguinal scrotal hernia containing fat and bowel. There was some signs of incarceration and strangulation and some edema in the mesentery. The patient was transferred to Med/Surg unit for evaluation and management of left inguinal hernia. General surgical team, Dr. Mac has been consulted. Cardiology consultation was made for preoperative cardiac assessment for possible noncardiac surgery. At the bedside, the patient denies any chest pain or shortness of breath. He is not providing a detailed history of his daily activities in the nursing facility. PAST MEDICAL HISTORY: 1. Cognitive impairment. 2. Hyperlipidemia. 3. Prostate enlargement. 4. Dementia. 5. Schizophrenia. PAST SURGICAL HISTORY: None. LIST OF MEDICATIONS: 1. Aspirin 81 mg p.o. daily. 2. Lipitor 40 mg p.o. at bedtime. 3. Colace 100 mg p.o. daily. 4. Finasteride 5 mg daily. 5. Namenda 5 mg p.o. daily. 6. Mirtazapine 7.5 mg p.o. nightly. 7. Risperidone 0.5 mg p.o. daily. 8. Carafate 1 g p.o. 4 times a day. 9. Flomax 0.4 mg daily. ALLERGIES: No known drug allergies. FAMILY HISTORY: No premature coronary artery disease in the first-degree relatives. SOCIAL HISTORY: Denies any history of tobacco, alcohol, or illicit drug use. He is a resident of a [facility] facility. REVIEW OF SYSTEMS: HEENT: Denies any headache, diplopia, or blurred vision. CONSTITUTIONAL: Denies any fever, chills, night sweats, or weight loss. CARDIOVASCULAR: Denies any chest pain, shortness of breath, PND, orthopnea, or leg swelling. PULMONARY: Denies any cough, hemoptysis, or wheezing. GASTROINTESTINAL: Denies any nausea, vomiting, diarrhea, or constipation. Positive pain in the left inguinal hernia with bulge and throbbing sensation. NEUROLOGIC: Denies any motor dysfunction, sensory deficit, or altered speech. PHYSICAL EXAMINATION: VITAL SIGNS: Blood pressure is 110/73 mmHg, pulse of 70, respirations of 18, O2 saturation 93% on room air, and temperature 98.1 degrees Fahrenheit. GENERAL: This is a very unfortunate 79-year-old gentleman, in no apparent respiratory distress with a significant memory loss. HEENT: Atraumatic and normocephalic. Anicteric. Pupils are equal, round, and reactive to light and accommodation. Extraocular muscles intact. NECK: JVP less than 5 cm. No carotid bruit. Carotid upstrokes 2+ bilaterally. CVS: Normal S1 and S2. There is a 2/6 holosystolic murmur at the apex. No gallops or rubs. LUNGS: Clear to auscultation bilaterally. ABDOMEN: Soft, nontender, and nondistended. No hepatosplenomegaly. Positive bowel sounds. EXTREMITIES: No evidence of edema, clubbing, or cyanosis. LABORATORY FINDINGS: WBC is 9.4, hemoglobin 13.5, hematocrit of 39.2%, and platelet count is 229,000. Sodium 139, potassium 4.1, chloride 104, bicarbonate 27, BUN of 24, creatinine 1.2, and glucose is 100. Calcium is 9.3. A 12-lead electrocardiogram, not available. A venous duplex exam of bilateral lower extremity showed no evidence of DVT. ASSESSMENT AND PLAN: The patient is a very unfortunate 79-year-old gentleman, seen in Cardiology consultation. 1. The patient is asymptomatic with his normal activities. Risk factors for coronary artery disease is including only age. We would like to obtain a 12-lead electrocardiogram. However, given the above findings, the patient is cleared for possible left inguinal herniorrhaphy if planned with the risk of coronary artery events approximately estimated to be less than 1%. 2. Dyslipidemia. 3. Cardiac murmur, a 2D echocardiography will shed light in this condition. I would like to thank, Dr. Aranda, for allowing me to participate in the care of this patient. Gregor Flores M.D. DR: VEDA JOB#: [id number] CC:
[2019-03-20 04:15] VITALS: BP 98/62
[2019-03-20 07:06] LABS: ANION GAP 9 mmol/L (5-15); BLOOD UREA NITROGEN 24 mg/dL (7-18); CARBON DIOXIDE 25 MMOL/L (21-32); CHLORIDE 104 MMOL/L (98-107); CREATININE 1.3 MG/DL (0.55-1.30); POTASSIUM 4.2 MMOL/L (3.5-5.1); SODIUM 138 MMOL/L (136-145)
--- NOTE | 2019-03-20 07:10 | NUR ---
HAND-OFF: Report given to LIANA Smith.
[2019-03-20 07:11] LABS: BASOPHILS % (AUTO) 1.2 % (0.0-2.0); EOSINOPHILS % (AUTO) 3.5 % (0.0-3.0); HEMATOCRIT 40.2 % (42.0-52.0); HEMOGLOBIN 13.8 G/DL (14.2-18.0); LYMPHOCYTES % (AUTO) 31.8 % (20.0-45.0); MEAN CORPUSCULAR VOLUME 87 FL (80-99); MONOCYTES % (AUTO) 5.8 % (1.0-10.0); NEUTROPHILS % (AUTO) 57.7 % (45.0-75.0); PLATELET COUNT 240 K/UL (150-450); RED BLOOD COUNT 4.64 M/UL (4.70-6.10); RED CELL DISTRIBUTION WIDTH 12.1 % (11.6-14.8); WHITE BLOOD COUNT 7.3 K/UL (4.8-10.8)
--- NOTE | 2019-03-20 07:12 | NUR ---
NURSE NOTES: Received report from Dawn/RN, Patient is asleep, No acute distress/ SOB noted. IV site intact, no bleeding or infiltration noted. Bed in lowest position and locked, Call light within reach. Will continue plan of care.
[2019-03-20 08:00] VITALS: BP 104/55
--- NOTE | 2019-03-20 08:34 | NUR ---
P.T NOTE: P.T EVALUATION COMPLETED. PATIENT IS ALERT , O X 4 , PLEASANT AND COOPERATIVE, DENIED C/O PAIN PAIN. PATIENT IS CURRENTLY BASELINE INDEPENDENT IN ALL AREAS FUNCTIONAL MOBILITIES, GAIT/LOCOMOTION . SKILLED P.T SERVICE IS NOT NEEDED AT THIS TIME . THANK YOU FOR THIS REFERRAL. Addendum: 03/20/19 at 9848 by DIANE BAL PT CORRECTION: PLEASE DISREGARD THE ABOVE P.T NOTES. IT WAS A WRONG ENTRY !
[2019-03-20] MEDS: Tamsulosin 0.4mg cap ORAL SCH (08:59)
--- NOTE | 2019-03-20 10:04 | NUR ---
P.T NOTE: P.T EVALUATION COMPLETED. PATIENT IS CURRENTLY FUNCTIONING AT BASELINE THEREFORE SKILLED P.T SERVICE IS NOT NEEDED AT THIS TIME. SPOKE TO RN RE: PATIENT'S CURRENT FUNCTIONAL STATUS. PATIENT IS CLEARED FOR OOB ACTIVITIES WITH NURSING SUPERVISION. [facility] P.T SERVICES. THANK YOU FOR THIS REFERRAL.
--- NOTE | 2019-03-20 11:44 | General Progress Note ---
Assessment/Plan Problem List: (1) BPH (benign prostatic hyperplasia) ICD Codes: N40.0 - Benign prostatic hyperplasia without lower urinary tract symptoms SNOMED: 836214877 (2) Weak ICD Codes: R53.1 - Weakness SNOMED: 33809541 (3) Depressed ICD Codes: F32.9 - Major depressive disorder, single episode, unspecified SNOMED: 41838302 (4) Schizophrenia ICD Codes: F20.9 - Schizophrenia, unspecified SNOMED: 18899726 (5) Incarcerated left inguinal hernia ICD Codes: K40.30 - Unilateral inguinal hernia, with obstruction, without gangrene, not specified as recurrent SNOMED: 081399239 Status: stable, progressing Assessment/Plan: pt diet pain control sx f/u cbc bmp am Subjective Constitutional: Reports: weakness Allergies: Coded Allergies: No Known Allergies (Unverified , 03/18/19) All Systems: reviewed and negative except above Subjective sleepy calm in bed Objective Last 24 Hour Vital Signs Date Time Temp Pulse Resp B/P (MAP) Pulse Ox O2 Delivery O2 Flow Rate FiO2 03/20/19 09:00 Room Air 03/20/19 08:00 98.6 57 18 104/55 (71) 95 03/20/19 04:15 97.9 68 98/62 (74) 03/19/19 20:34 Room Air 03/19/19 20:00 98.3 65 18 108/60 (76) 96 03/19/19 16:00 97.5 58 18 115/65 (82) 96 03/19/19 12:00 98.0 58 20 91/5 (33) 95 Intake and Output 03/19/19 03/20/19 19:00 07:00 Intake Total 300 ml 300 ml Balance 300 ml 300 ml Intake Oral 300 ml 300 ml # Voids 3 3 Laboratory Tests 03/20/19 05:35: White Blood Count 7.3, Red Blood Count 4.64L, Hemoglobin 13.8L, Hematocrit 40.2L , Mean Corpuscular Volume 87, Mean Corpuscular Hemoglobin 29.7, Mean Corpuscular Hemoglobin Concent 34.4, Red Cell Distribution Width 12.1, Platelet Count 240, Mean Platelet Volume 6.7, Neutrophils (%) (Auto) 57.7, Lymphocytes (% ) (Auto) 31.8, Monocytes (%) (Auto) 5.8, Eosinophils (%) (Auto) 3.5H, Basophils (%) (Auto) 1.2, Sodium Level 138, Potassium Level 4.2, Chloride Level 104, Carbon Dioxide Level 25, Anion Gap 9, Blood Urea Nitrogen 24H, Creatinine 1.3, Estimat Glomerular Filtration Rate , Glucose Level 90, Calcium Level 9.0 Height (Feet): 5 Height (Inches): 5.00 Weight (Pounds): 158 General Appearance: lethargic EENT: normal ENT inspection Neck: normal alignment Cardiovascular: normal peripheral pulses, normal rate, regular rhythm Respiratory/Chest: chest wall non-tender, lungs clear, normal breath sounds Abdomen: normal bowel sounds, non tender, soft Extremities: normal inspection Edema: no edema noted Arm (L), no edema noted Arm (R), no edema noted Leg (L), no edema noted Leg (R), no edema noted Pedal (L), no edema noted Pedal (R), no edema noted Generalized Neurologic: motor weakness Skin: normal pigmentation, warm/dry Mg Aranda DO Mar 20, 2019 11:44
[2019-03-20 12:00] VITALS: BP 111/63
--- NOTE | 2019-03-20 15:33 | Surgery Progress Note ---
Surgery Progress Note Subjective Symptoms: tolerating diet, voiding well, passing flatus Additional Comments no acute events doing well no pain states he feels okay tolerating diet flatus but no BM recommended surgery but still declines hernia reducible Objective Last 24 Hour Vital Signs Date Time Temp Pulse Resp B/P (MAP) Pulse Ox O2 Delivery O2 Flow Rate FiO2 03/20/19 12:00 97.9 56 19 111/63 (79) 97 03/20/19 09:00 Room Air 03/20/19 08:00 98.6 57 18 104/55 (71) 95 03/20/19 04:15 97.9 68 98/62 (74) 03/19/19 20:34 Room Air 03/19/19 20:00 98.3 65 18 108/60 (76) 96 03/19/19 16:00 97.5 58 18 115/65 (82) 96 I&O Intake and Output 03/19/19 03/20/19 19:00 07:00 Intake Total 300 ml 300 ml Balance 300 ml 300 ml Intake Oral 300 ml 300 ml # Voids 3 3 Cardiovascular: RSR Respiratory: clear Abdomen: soft, non-tender, present bowel sounds, non-distended Extremities: no edema, no tenderness, no cyanosis Laboratory Tests Test 03/20/19 05:35 White Blood Count 7.3 K/UL (4.8-10.8) Red Blood Count 4.64 M/UL (4.70-6.10) L Hemoglobin 13.8 G/DL (14.2-18.0) L Hematocrit 40.2 % (42.0-52.0) L Mean Corpuscular Volume 87 FL (80-99) Mean Corpuscular Hemoglobin 29.7 PG (27.0-31.0) Mean Corpuscular Hemoglobin Concent 34.4 G/DL (32.0-36.0) Red Cell Distribution Width 12.1 % (11.6-14.8) Platelet Count 240 K/UL (150-450) Mean Platelet Volume 6.7 FL (6.5-10.1) Neutrophils (%) (Auto) 57.7 % (45.0-75.0) Lymphocytes (%) (Auto) 31.8 % (20.0-45.0) Monocytes (%) (Auto) 5.8 % (1.0-10.0) Eosinophils (%) (Auto) 3.5 % (0.0-3.0) H Basophils (%) (Auto) 1.2 % (0.0-2.0) Sodium Level 138 MMOL/L (136-145) Potassium Level 4.2 MMOL/L (3.5-5.1) Chloride Level 104 MMOL/L (98-107) Carbon Dioxide Level 25 MMOL/L (21-32) Anion Gap 9 mmol/L (5-15) Blood Urea Nitrogen 24 mg/dL (7-18) H Creatinine 1.3 MG/DL (0.55-1.30) Estimat Glomerular Filtration Rate mL/min (>60) Glucose Level 90 MG/DL (74-106) Calcium Level 9.0 MG/DL (8.5-10.1) Plan Problems: (1) Incarcerated left inguinal hernia Assessment & Plan: This is a 79-year-old male with multiple medical comorbidities is a [facility] resident that presented with lower abdominal pelvic pain and discomfort and bulge. Patient was identified to have a large incarcerated left inguinal hernia. Fortunately with patient's consent I was able to tentatively reduce the hernia at the bedside in the emergency department. Patient states he feels much better. The contents of the hernia sac were noted to enter the abdominal cavity and palpable defect identified. Recommend admission for monitoring, work-up, exams. okay for clear liquid diet AM labs will follow with serial exams if remains reduced can consider elective repair. if incarcerates again, develops abd pain, worsening labs, may require surgery as exact history and timing/onset unknown. fortunately hernia was not very tender when first noted and did not seem strangulated but rather simple incarceration that was reduced without significant discomfort to patient thank you will follow with recs given hernia and size and scrotal in [facility] patient would recommend repair patient reluctant to have surgery at this time will respect wishes. diet as tolerated Aroldo Mac Mar 20, 2019 15:33
[2019-03-20 16:00] VITALS: BP 106/62
[2019-03-20] MEDS: Docusate 100mg tablet ORAL SCH (17:30)
--- NOTE | 2019-03-20 19:47 | NUR ---
HAND-OFF: Report given to Alanis/RN, Patient is asleep, no acute distress noted, in stable condition. Endorsed plan of care.
--- NOTE | 2019-03-20 19:54 | Pulmonology Progress Note ---
Assessment/Plan Problems: (1) Incarcerated left inguinal hernia (2) Depression (3) BPH (benign prostatic hyperplasia) (4) Schizophrenia Assessment/Plan IV fluids check electrolytes No BM yet psych evaluation for competency. dvt prophylaxis. Subjective ROS Limited/Unobtainable: No Allergies: Coded Allergies: No Known Allergies (Unverified , 03/18/19) Objective Last 24 Hour Vital Signs Date Time Temp Pulse Resp B/P (MAP) Pulse Ox O2 Delivery O2 Flow Rate FiO2 03/20/19 16:00 99.1 52 18 106/62 (77) 97 03/20/19 12:00 97.9 56 19 111/63 (79) 97 03/20/19 09:00 Room Air 03/20/19 08:00 98.6 57 18 104/55 (71) 95 03/20/19 04:15 97.9 68 98/62 (74) 03/19/19 20:34 Room Air 03/19/19 20:00 98.3 65 18 108/60 (76) 96 Intake and Output 03/19/19 03/20/19 19:00 07:00 Intake Total 300 ml 300 ml Balance 300 ml 300 ml Intake Oral 300 ml 300 ml # Voids 3 3 General Appearance: WD/WN HEENT: normocephalic, atraumatic Respiratory/Chest: chest wall non-tender, lungs clear Cardiovascular: normal peripheral pulses, normal rate, regular rhythm Abdomen: normal bowel sounds, soft, non tender Genitourinary: normal external genitalia Skin: no rash Neurologic/Psychiatric: transportation aide II-XII grossly normal, no motor/sensory deficits Laboratory Tests 03/20/19 05:35: White Blood Count 7.3, Red Blood Count 4.64L, Hemoglobin 13.8L, Hematocrit 40.2L , Mean Corpuscular Volume 87, Mean Corpuscular Hemoglobin 29.7, Mean Corpuscular Hemoglobin Concent 34.4, Red Cell Distribution Width 12.1, Platelet Count 240, Mean Platelet Volume 6.7, Neutrophils (%) (Auto) 57.7, Lymphocytes (% ) (Auto) 31.8, Monocytes (%) (Auto) 5.8, Eosinophils (%) (Auto) 3.5H, Basophils (%) (Auto) 1.2, Sodium Level 138, Potassium Level 4.2, Chloride Level 104, Carbon Dioxide Level 25, Anion Gap 9, Blood Urea Nitrogen 24H, Creatinine 1.3, Estimat Glomerular Filtration Rate , Glucose Level 90, Calcium Level 9.0 Current Medications Medications (Trade) Dose Ordered Sig/Pati Route PRN Reason Start Time Stop Time Status Last Admin Dose Admin Acetaminophen (Tylenol) 650 mg Q4H PRN ORAL fever 03/18/19 21:15 04/17/19 21:14 Dextrose (Dextrose 50%) 25 ml Q30M PRN IV Hypoglycemia 03/18/19 21:15 04/17/19 21:07 Dextrose (Dextrose 50%) 50 ml Q30M PRN IV hypoglycemia 03/18/19 21:15 04/17/19 21:14 Docusate Sodium (Colace) 100 mg TID ORAL 03/20/19 18:00 04/19/19 17:59 03/20/19 17:30 Finasteride (Proscar) 5 mg DAILY ORAL 03/19/19 09:00 04/18/19 08:59 03/20/19 08:59 Iopamidol (Isovue-300 100ml) 100 ml NOW PRN INJ Radiology Procedure 03/18/19 18:00 Lorazepam (Ativan 2mg/ml 1ml) 0.5 mg Q4H PRN IV For Anxiety 03/18/19 21:15 03/25/19 21:14 Mirtazapine (Remeron) 7.5 mg BEDTIME ORAL 03/19/19 21:00 04/18/19 20:59 03/19/19 20:54 Morphine Sulfate (Morphine Sulfate) 1 mg Q4H PRN IVP For Pain 03/18/19 21:15 03/25/19 21:14 Ondansetron HCl (Zofran) 4 mg Q6H PRN IVP Nausea & Vomiting 03/18/19 21:15 04/17/19 21:14 Polyethylene Glycol (Miralax) 17 gm HSPRN PRN ORAL Constipation 03/18/19 21:15 04/17/19 21:14 Tamsulosin HCl (Flomax) 0.4 mg DAILY ORAL 03/19/19 09:00 04/18/19 08:59 03/20/19 08:59 Zolpidem Tartrate (Ambien) 5 mg HSPRN PRN ORAL Insomnia 03/18/19 21:15 03/25/19 21:14 Katarzyna Escobedo MD Mar 20, 2019 19:54
[2019-03-20 20:00] VITALS: BP 130/74
--- NOTE | 2019-03-20 20:23 | NUR ---
NURSE NOTES: RECEIVED PT FROM LIANA HERNANDEZ. PT IS IN BED, ASLEEP. ON ROOM AIR, NO ACUTE DISTRESS NOTED. IV ON LEFT FA 20G IS INTACT AND PATENT. SCD NOTED AT BEDSIDE, PT REFUSED TO WEAR IT. BED IS LOCKED AT THE LOWEST POSITION, BED ALARMS ACTIVE, SIDE RAILS UP X2, AND CALL LIGHT IS WITHIN REACH. WILL CONTINUE TO MONITOR.
[2019-03-21] VITALS: BP 134/73
[2019-03-21 04:00] VITALS: BP 128/65
[2019-03-21 06:41] LABS: BASOPHILS % (AUTO) 1.1 % (0.0-2.0); EOSINOPHILS % (AUTO) 3.5 % (0.0-3.0); HEMATOCRIT 39.8 % (42.0-52.0); HEMOGLOBIN 13.4 G/DL (14.2-18.0); LYMPHOCYTES % (AUTO) 30.3 % (20.0-45.0); MEAN CORPUSCULAR VOLUME 87 FL (80-99); MONOCYTES % (AUTO) 5.4 % (1.0-10.0); NEUTROPHILS % (AUTO) 59.7 % (45.0-75.0); PLATELET COUNT 235 K/UL (150-450); RED BLOOD COUNT 4.57 M/UL (4.70-6.10); RED CELL DISTRIBUTION WIDTH 11.9 % (11.6-14.8); WHITE BLOOD COUNT 7.4 K/UL (4.8-10.8)
[2019-03-21 07:04] LABS: ANION GAP 9 mmol/L (5-15); BLOOD UREA NITROGEN 23 mg/dL (7-18); CALCIUM 8.7 MG/DL (8.5-10.1); CARBON DIOXIDE 24 MMOL/L (21-32); CHLORIDE 106 MMOL/L (98-107); CREATININE 1.3 MG/DL (0.55-1.30); POTASSIUM 4.1 MMOL/L (3.5-5.1); SODIUM 139 MMOL/L (136-145)
--- NOTE | 2019-03-21 07:28 | NUR ---
HAND-OFF: Report given to LIANA Araiza. Pt is in stable condition, sitting up in bed eating breakfast. Endorse to AM nurse the plan of care.
--- NOTE | 2019-03-21 07:54 | NUR ---
NURSE NOTES: Received report from Deandre Thapa. Patient sitting up in bed. Patient eating her breakfast. awake and alert., No complain of pain or discomfort. will continue to monitor.
[2019-03-21 08:00] VITALS: BP_SYST 110; BP_SYST 121; BP_DIAS 55; BP_DIAS 65
--- NOTE | 2019-03-21 08:14 | Diagnostic Imaging Report ---
Indication: Reason For Exam: COUGH Technique: Single AP view of the chest. Comparison: None. Findings: The cardiomediastinal silhouette is within normal limits when accounting for projection and technique. Low lung volumes leading to bronchovascular crowding. There is diffuse peribronchial thickening. Right perihilar airspace opacity is noted. No pleural fluid or pneumothorax. Osseous structures demonstrate no acute abnormality. IMPRESSION: 1. Right perihilar airspace opacity which may represent atelectasis but pneumonia should be excluded clinically. 2. Bronchial thickening, which can be seen in small airways disease.
--- NOTE | 2019-03-21 09:06 | General Progress Note ---
Assessment/Plan Problem List: (1) BPH (benign prostatic hyperplasia) ICD Codes: N40.0 - Benign prostatic hyperplasia without lower urinary tract symptoms SNOMED: 218461177 (2) Schizophrenia ICD Codes: F20.9 - Schizophrenia, unspecified SNOMED: 79581757 (3) Incarcerated left inguinal hernia ICD Codes: K40.30 - Unilateral inguinal hernia, with obstruction, without gangrene, not specified as recurrent SNOMED: 517849310 Status: stable, progressing Assessment/Plan: pt diet pain control sx f/u cbc bmp am psyc transfer if sx clear Subjective Constitutional: Reports: weakness Allergies: Coded Allergies: No Known Allergies (Unverified , 03/18/19) All Systems: reviewed and negative except above Subjective sleepy calm in bed Objective Last 24 Hour Vital Signs Date Time Temp Pulse Resp B/P (MAP) Pulse Ox O2 Delivery O2 Flow Rate FiO2 03/21/19 08:00 97.4 79 20 110/55 (73) 99 03/21/19 04:00 98.5 51 18 128/65 (86) 99 03/21/19 00:00 98.0 96 20 134/73 (93) 98 03/20/19 21:00 Room Air 03/20/19 20:00 98.5 70 18 130/74 (92) 96 03/20/19 16:00 99.1 52 18 106/62 (77) 97 03/20/19 12:00 97.9 56 19 111/63 (79) 97 Intake and Output 03/20/19 03/21/19 19:00 07:00 Intake Total 712 ml Output Total 180 ml Balance 712 ml -180 ml Intake Oral 712 ml Output Urine Total 180 ml # Voids 3 1 Laboratory Tests 03/21/19 05:35: White Blood Count 7.4, Red Blood Count 4.57L, Hemoglobin 13.4L, Hematocrit 39.8L , Mean Corpuscular Volume 87, Mean Corpuscular Hemoglobin 29.4, Mean Corpuscular Hemoglobin Concent 33.6, Red Cell Distribution Width 11.9, Platelet Count 235, Mean Platelet Volume 7.1, Neutrophils (%) (Auto) 59.7, Lymphocytes (% ) (Auto) 30.3, Monocytes (%) (Auto) 5.4, Eosinophils (%) (Auto) 3.5H, Basophils (%) (Auto) 1.1, Sodium Level 139, Potassium Level 4.1, Chloride Level 106, Carbon Dioxide Level 24, Anion Gap 9, Blood Urea Nitrogen 23H, Creatinine 1.3, Estimat Glomerular Filtration Rate , Glucose Level 87, Calcium Level 8.7 Height (Feet): 5 Height (Inches): 5.00 Weight (Pounds): 158 General Appearance: lethargic EENT: normal ENT inspection Neck: normal alignment Cardiovascular: normal peripheral pulses, normal rate, regular rhythm Respiratory/Chest: chest wall non-tender, lungs clear, normal breath sounds Abdomen: normal bowel sounds, non tender, soft Extremities: normal inspection Edema: no edema noted Arm (L), no edema noted Arm (R), no edema noted Leg (L), no edema noted Leg (R), no edema noted Pedal (L), no edema noted Pedal (R), no edema noted Generalized Neurologic: motor weakness Skin: normal pigmentation, warm/dry Mg Aranda DO Mar 21, 2019 09:06
[2019-03-21] MEDS: Tamsulosin 0.4mg cap ORAL SCH (09:14)
[2019-03-21] MEDS: Docusate 100mg tablet ORAL SCH ×3 (09:14→17:29)
[2019-03-21 12:00] VITALS: BP 121/65
[2019-03-21] MEDS: Miralax 17gm pkt ORAL PRN (13:10)
--- NOTE | 2019-03-21 14:54 | Surgery Progress Note ---
Surgery Progress Note Subjective Symptoms: improved, tolerating diet, voiding well, passing flatus, BM, pain decreased Objective Last 24 Hour Vital Signs Date Time Temp Pulse Resp B/P (MAP) Pulse Ox O2 Delivery O2 Flow Rate FiO2 03/21/19 12:00 97.1 57 19 121/65 (83) 97 03/21/19 09:00 Room Air 03/21/19 08:00 97.4 79 20 110/55 (73) 99 03/21/19 04:00 98.5 51 18 128/65 (86) 99 03/21/19 00:00 98.0 96 20 134/73 (93) 98 03/20/19 21:00 Room Air 03/20/19 20:00 98.5 70 18 130/74 (92) 96 03/20/19 16:00 99.1 52 18 106/62 (77) 97 I&O Intake and Output 03/20/19 03/21/19 19:00 07:00 Intake Total 712 ml Output Total 180 ml Balance 712 ml -180 ml Intake Oral 712 ml Output Urine Total 180 ml # Voids 3 1 Cardiovascular: RSR Respiratory: clear Abdomen: soft, flat, non-tender, present bowel sounds, non-distended Extremities: no edema, no tenderness, no cyanosis Laboratory Tests Test 03/21/19 05:35 White Blood Count 7.4 K/UL (4.8-10.8) Red Blood Count 4.57 M/UL (4.70-6.10) L Hemoglobin 13.4 G/DL (14.2-18.0) L Hematocrit 39.8 % (42.0-52.0) L Mean Corpuscular Volume 87 FL (80-99) Mean Corpuscular Hemoglobin 29.4 PG (27.0-31.0) Mean Corpuscular Hemoglobin Concent 33.6 G/DL (32.0-36.0) Red Cell Distribution Width 11.9 % (11.6-14.8) Platelet Count 235 K/UL (150-450) Mean Platelet Volume 7.1 FL (6.5-10.1) Neutrophils (%) (Auto) 59.7 % (45.0-75.0) Lymphocytes (%) (Auto) 30.3 % (20.0-45.0) Monocytes (%) (Auto) 5.4 % (1.0-10.0) Eosinophils (%) (Auto) 3.5 % (0.0-3.0) H Basophils (%) (Auto) 1.1 % (0.0-2.0) Sodium Level 139 MMOL/L (136-145) Potassium Level 4.1 MMOL/L (3.5-5.1) Chloride Level 106 MMOL/L (98-107) Carbon Dioxide Level 24 MMOL/L (21-32) Anion Gap 9 mmol/L (5-15) Blood Urea Nitrogen 23 mg/dL (7-18) H Creatinine 1.3 MG/DL (0.55-1.30) Estimat Glomerular Filtration Rate mL/min (>60) Glucose Level 87 MG/DL (74-106) Calcium Level 8.7 MG/DL (8.5-10.1) Plan Problems: (1) Incarcerated left inguinal hernia Assessment & Plan: This is a 79-year-old male with multiple medical comorbidities is a halfway resident that presented with lower abdominal pelvic pain and discomfort and bulge. Patient was identified to have a large incarcerated left inguinal hernia. Fortunately with patient's consent I was able to tentatively reduce the hernia at the bedside in the emergency department. Patient states he feels much better. The contents of the hernia sac were noted to enter the abdominal cavity and palpable defect identified. Recommend admission for monitoring, work-up, exams. okay for clear liquid diet AM labs will follow with serial exams if remains reduced can consider elective repair. if incarcerates again, develops abd pain, worsening labs, may require surgery as exact history and timing/onset unknown. fortunately hernia was not very tender when first noted and did not seem strangulated but rather simple incarceration that was reduced without significant discomfort to patient thank you will follow with recs given hernia and size and scrotal in halfway patient would recommend repair patient reluctant to have surgery at this time will respect wishes. diet as tolerated d/c planning okay to d/c from surgical standpoint with outpatient follow up if changes his mind about surgery Aroldo Mac Mar 21, 2019 14:54
[2019-03-21] MEDS ORDERED: Milk of Magnesia 30ml Ud ORAL SCH (15:00)
--- NOTE | 2019-03-21 15:36 | NUR ---
Social Work This Sw received a consult to assist with inpatient Psychiatric Placement from Dr. Aranda. This Sw contacted David ([facility]) [phone] and faxed chart information to fax [phone]. Pending evaluation at this time.
[2019-03-21 16:00] VITALS: BP 131/68
--- NOTE | 2019-03-21 18:23 | Pulmonology Progress Note ---
Assessment/Plan Problems: (1) Incarcerated left inguinal hernia (2) Depression (3) BPH (benign prostatic hyperplasia) (4) Schizophrenia Assessment/Plan doing better check electrolytes No BM yet psych evaluation for competency. dvt prophylaxis. Subjective ROS Limited/Unobtainable: No Constitutional: Reports: no symptoms HEENT: Repors: no symptoms Respiratory: Reports: no symptoms Cardiovascular: Reports: no symptoms Allergies: Coded Allergies: No Known Allergies (Unverified , 03/18/19) Objective Last 24 Hour Vital Signs Date Time Temp Pulse Resp B/P (MAP) Pulse Ox O2 Delivery O2 Flow Rate FiO2 03/21/19 16:00 98.0 73 19 131/68 (89) 98 03/21/19 12:00 97.1 57 19 121/65 (83) 97 03/21/19 09:00 Room Air 03/21/19 08:00 97.4 79 20 110/55 (73) 99 03/21/19 04:00 98.5 51 18 128/65 (86) 99 03/21/19 00:00 98.0 96 20 134/73 (93) 98 03/20/19 21:00 Room Air 03/20/19 20:00 98.5 70 18 130/74 (92) 96 Intake and Output 03/20/19 03/21/19 19:00 07:00 Intake Total 712 ml Output Total 180 ml Balance 712 ml -180 ml Intake Oral 712 ml Output Urine Total 180 ml # Voids 3 1 General Appearance: WD/WN HEENT: normocephalic, atraumatic Respiratory/Chest: chest wall non-tender, lungs clear Cardiovascular: normal peripheral pulses, normal rate Abdomen: normal bowel sounds, soft, non tender Skin: no lesions Neurologic/Psychiatric: assignment agent II-XII grossly normal Lymphatic: no neck adenopathy Laboratory Tests 03/21/19 05:35: White Blood Count 7.4, Red Blood Count 4.57L, Hemoglobin 13.4L, Hematocrit 39.8L , Mean Corpuscular Volume 87, Mean Corpuscular Hemoglobin 29.4, Mean Corpuscular Hemoglobin Concent 33.6, Red Cell Distribution Width 11.9, Platelet Count 235, Mean Platelet Volume 7.1, Neutrophils (%) (Auto) 59.7, Lymphocytes (% ) (Auto) 30.3, Monocytes (%) (Auto) 5.4, Eosinophils (%) (Auto) 3.5H, Basophils (%) (Auto) 1.1, Sodium Level 139, Potassium Level 4.1, Chloride Level 106, Carbon Dioxide Level 24, Anion Gap 9, Blood Urea Nitrogen 23H, Creatinine 1.3, Estimat Glomerular Filtration Rate , Glucose Level 87, Calcium Level 8.7 Current Medications Medications (Trade) Dose Ordered Sig/Pati Route PRN Reason Start Time Stop Time Status Last Admin Dose Admin Acetaminophen (Tylenol) 650 mg Q4H PRN ORAL fever 03/18/19 21:15 04/17/19 21:14 Dextrose (Dextrose 50%) 25 ml Q30M PRN IV Hypoglycemia 03/18/19 21:15 04/17/19 21:07 Dextrose (Dextrose 50%) 50 ml Q30M PRN IV hypoglycemia 03/18/19 21:15 04/17/19 21:14 Docusate Sodium (Colace) 100 mg TID ORAL 03/20/19 18:00 04/19/19 17:59 03/21/19 17:29 Finasteride (Proscar) 5 mg DAILY ORAL 03/19/19 09:00 04/18/19 08:59 03/21/19 09:14 Iopamidol (Isovue-300 100ml) 100 ml NOW PRN INJ Radiology Procedure 03/18/19 18:00 Lorazepam (Ativan 2mg/ml 1ml) 0.5 mg Q4H PRN IV For Anxiety 03/18/19 21:15 03/25/19 21:14 Magnesium Hydroxide (Mom) 30 ml DAILYPRN PRN ORAL Constipation 03/21/19 15:00 04/20/19 14:59 Mirtazapine (Remeron) 7.5 mg BEDTIME ORAL 03/19/19 21:00 04/18/19 20:59 03/20/19 21:53 Morphine Sulfate (Morphine Sulfate) 1 mg Q4H PRN IVP For Pain 03/18/19 21:15 03/25/19 21:14 Ondansetron HCl (Zofran) 4 mg Q6H PRN IVP Nausea & Vomiting 03/18/19 21:15 04/17/19 21:14 Polyethylene Glycol (Miralax) 17 gm HSPRN PRN ORAL Constipation 03/18/19 21:15 04/17/19 21:14 03/21/19 13:10 Tamsulosin HCl (Flomax) 0.4 mg DAILY ORAL 03/19/19 09:00 04/18/19 08:59 03/21/19 09:14 Zolpidem Tartrate (Ambien) 5 mg HSPRN PRN ORAL Insomnia 03/18/19 21:15 03/25/19 21:14 Katarzyna Escobedo MD Mar 21, 2019 18:23
--- NOTE | 2019-03-21 19:41 | NUR ---
NURSE NOTES: Pt is in bed, awake and verbal. No acute distress noted. Pt instructed to call before getting out of bed. Bed locked low in position,side rails up and call light within reach. Pt will be monitored.
--- NOTE | 2019-03-21 19:47 | NUR ---
HAND-OFF: Report given to Maribell Stephen Rn. Patient stable. Plan of care endorsed.
[2019-03-21 20:00] VITALS: BP 120/71
[2019-03-21] MEDS: Milk of Magnesia 30ml Ud ORAL PRN (21:50)
[2019-03-22] VITALS: BP 122/68
--- NOTE | 2019-03-22 03:00 | NUR ---
NURSE NOTES: Pt is in bed, asleep. No acute distress noted. Pt was milk MOM for constipation.
[2019-03-22 04:00] VITALS: BP 126/72
--- NOTE | 2019-03-22 05:39 | NUR ---
NURSE NOTES: Pt refused morning labs.
--- NOTE | 2019-03-22 06:20 | NUR ---
NURSE NOTES: Pt doesn't want to answer questions, pt is irritable.
--- NOTE | 2019-03-22 07:25 | Pulmonology Progress Note ---
Assessment/Plan Problems: (1) Incarcerated left inguinal hernia (2) Depression (3) BPH (benign prostatic hyperplasia) (4) Schizophrenia Assessment/Plan eating well doing better check electrolytes No BM yet psych evaluation for competency. dvt prophylaxis. Subjective ROS Limited/Unobtainable: No Constitutional: Reports: no symptoms HEENT: Repors: no symptoms Respiratory: Reports: no symptoms Allergies: Coded Allergies: No Known Allergies (Unverified , 03/18/19) Objective Last 24 Hour Vital Signs Date Time Temp Pulse Resp B/P (MAP) Pulse Ox O2 Delivery O2 Flow Rate FiO2 03/22/19 04:00 98.2 63 18 126/72 (90) 97 03/22/19 00:00 98.1 62 18 122/68 (86) 97 03/21/19 21:00 Room Air 03/21/19 20:00 97.7 65 19 120/71 (87) 97 03/21/19 16:00 98.0 73 19 131/68 (89) 98 03/21/19 12:00 97.1 57 19 121/65 (83) 97 03/21/19 09:00 Room Air 03/21/19 08:00 97.4 79 20 110/55 (73) 99 Intake and Output 03/21/19 03/22/19 19:00 07:00 Intake Total 720 ml 260 ml Balance 720 ml 260 ml Intake Oral 720 ml 260 ml # Voids 1 2 General Appearance: WD/WN HEENT: normocephalic, atraumatic Respiratory/Chest: lungs clear, chest wall tender Cardiovascular: normal rate, no gallop/murmur Abdomen: soft, non tender, no scars Extremities: no clubbing Current Medications Medications (Trade) Dose Ordered Sig/Pati Route PRN Reason Start Time Stop Time Status Last Admin Dose Admin Acetaminophen (Tylenol) 650 mg Q4H PRN ORAL fever 03/18/19 21:15 04/17/19 21:14 Dextrose (Dextrose 50%) 25 ml Q30M PRN IV Hypoglycemia 03/18/19 21:15 04/17/19 21:07 Dextrose (Dextrose 50%) 50 ml Q30M PRN IV hypoglycemia 03/18/19 21:15 04/17/19 21:14 Docusate Sodium (Colace) 100 mg TID ORAL 03/20/19 18:00 04/19/19 17:59 03/21/19 17:29 Finasteride (Proscar) 5 mg DAILY ORAL 03/19/19 09:00 04/18/19 08:59 03/21/19 09:14 Iopamidol (Isovue-300 100ml) 100 ml NOW PRN INJ Radiology Procedure 03/18/19 18:00 Lorazepam (Ativan 2mg/ml 1ml) 0.5 mg Q4H PRN IV For Anxiety 03/18/19 21:15 03/25/19 21:14 Magnesium Hydroxide (Mom) 30 ml DAILYPRN PRN ORAL Constipation 03/21/19 15:00 04/20/19 14:59 03/21/19 21:50 Mirtazapine (Remeron) 7.5 mg BEDTIME ORAL 03/19/19 21:00 04/18/19 20:59 03/21/19 21:41 Morphine Sulfate (Morphine Sulfate) 1 mg Q4H PRN IVP For Pain 03/18/19 21:15 03/25/19 21:14 Ondansetron HCl (Zofran) 4 mg Q6H PRN IVP Nausea & Vomiting 03/18/19 21:15 04/17/19 21:14 Polyethylene Glycol (Miralax) 17 gm HSPRN PRN ORAL Constipation 03/18/19 21:15 04/17/19 21:14 03/21/19 13:10 Tamsulosin HCl (Flomax) 0.4 mg DAILY ORAL 03/19/19 09:00 04/18/19 08:59 03/21/19 09:14 Zolpidem Tartrate (Ambien) 5 mg HSPRN PRN ORAL Insomnia 03/18/19 21:15 03/25/19 21:14 Katarzyna Escobedo MD Mar 22, 2019 07:25
--- NOTE | 2019-03-22 07:30 | NUR ---
HAND-OFF: Report given to Eli Saunders RN Tele.
[2019-03-22 08:00] VITALS: BP 115/63
--- NOTE | 2019-03-22 08:03 | NUR ---
NURSE NOTES: pt sitting in bed having breakfast. Pt is stable alert x3. Bed is in lowest position and locked. Call light with in reach. Will continue to follow plan of care.
--- NOTE | 2019-03-22 09:04 | General Progress Note ---
Assessment/Plan Problem List: (1) BPH (benign prostatic hyperplasia) ICD Codes: N40.0 - Benign prostatic hyperplasia without lower urinary tract symptoms SNOMED: 118702025 (2) Schizophrenia ICD Codes: F20.9 - Schizophrenia, unspecified SNOMED: 00674203 (3) Incarcerated left inguinal hernia ICD Codes: K40.30 - Unilateral inguinal hernia, with obstruction, without gangrene, not specified as recurrent SNOMED: 323934308 Status: stable, progressing Assessment/Plan: pt diet pain control sx f/u cbc bmp am psyc transfer if sx clear Subjective Constitutional: Reports: weakness Allergies: Coded Allergies: No Known Allergies (Unverified , 03/18/19) All Systems: reviewed and negative except above Subjective sleepy calm in bed Objective Last 24 Hour Vital Signs Date Time Temp Pulse Resp B/P (MAP) Pulse Ox O2 Delivery O2 Flow Rate FiO2 03/22/19 04:00 98.2 63 18 126/72 (90) 97 03/22/19 00:00 98.1 62 18 122/68 (86) 97 03/21/19 21:00 Room Air 03/21/19 20:00 97.7 65 19 120/71 (87) 97 03/21/19 16:00 98.0 73 19 131/68 (89) 98 03/21/19 12:00 97.1 57 19 121/65 (83) 97 Intake and Output 03/21/19 03/22/19 19:00 07:00 Intake Total 720 ml 260 ml Balance 720 ml 260 ml Intake Oral 720 ml 260 ml # Voids 1 2 Height (Feet): 5 Height (Inches): 5.00 Weight (Pounds): 158 General Appearance: lethargic EENT: normal ENT inspection Neck: normal alignment Cardiovascular: normal peripheral pulses, normal rate, regular rhythm Respiratory/Chest: chest wall non-tender, lungs clear, normal breath sounds Abdomen: normal bowel sounds, non tender, soft Extremities: normal inspection Edema: no edema noted Arm (L), no edema noted Arm (R), no edema noted Leg (L), no edema noted Leg (R), no edema noted Pedal (L), no edema noted Pedal (R), no edema noted Generalized Neurologic: motor weakness Skin: normal pigmentation, warm/dry Mg Aranda DO Mar 22, 2019 09:04
[2019-03-22] MEDS: Tamsulosin 0.4mg cap ORAL SCH (09:35)
[2019-03-22] MEDS: Docusate 100mg tablet ORAL SCH ×3 (09:35→18:46)
--- NOTE | 2019-03-22 11:15 | Surgery Progress Note ---
Surgery Progress Note Subjective Symptoms: improved, tolerating diet, voiding well, passing flatus Additional Comments awaiting BM Objective Last 24 Hour Vital Signs Date Time Temp Pulse Resp B/P (MAP) Pulse Ox O2 Delivery O2 Flow Rate FiO2 03/22/19 08:00 98.5 62 20 115/63 (80) 97 03/22/19 04:00 98.2 63 18 126/72 (90) 97 03/22/19 00:00 98.1 62 18 122/68 (86) 97 03/21/19 21:00 Room Air 03/21/19 20:00 97.7 65 19 120/71 (87) 97 03/21/19 16:00 98.0 73 19 131/68 (89) 98 03/21/19 12:00 97.1 57 19 121/65 (83) 97 I&O Intake and Output 03/21/19 03/22/19 19:00 07:00 Intake Total 720 ml 260 ml Balance 720 ml 260 ml Intake Oral 720 ml 260 ml # Voids 1 2 Drains: none Cardiovascular: RSR Respiratory: clear Abdomen: soft, flat, non-tender, present bowel sounds Extremities: no cyanosis Plan Problems: (1) Incarcerated left inguinal hernia Assessment & Plan: This is a 79-year-old male with multiple medical comorbidities is a shelter resident that presented with lower abdominal pelvic pain and discomfort and bulge. Patient was identified to have a large incarcerated left inguinal hernia. Fortunately with patient's consent I was able to tentatively reduce the hernia at the bedside in the emergency department. Patient states he feels much better. The contents of the hernia sac were noted to enter the abdominal cavity and palpable defect identified. Recommend admission for monitoring, work-up, exams. okay for clear liquid diet AM labs will follow with serial exams if remains reduced can consider elective repair. if incarcerates again, develops abd pain, worsening labs, may require surgery as exact history and timing/onset unknown. fortunately hernia was not very tender when first noted and did not seem strangulated but rather simple incarceration that was reduced without significant discomfort to patient thank you will follow with recs given hernia and size and scrotal in shelter patient would recommend repair patient reluctant to have surgery at this time will respect wishes. diet as tolerated d/c planning okay to d/c from surgical standpoint with outpatient follow up if changes his mind about surgery Aroldo Mac Mar 22, 2019 11:14
[2019-03-22] MEDS: Milk of Magnesia 30ml Ud ORAL PRN (11:22)
--- NOTE | 2019-03-22 11:24 | NUR ---
NURSE NOTES: pt has not had BM, per Dr. Perez give another dose of Milk of mag.
[2019-03-22 12:00] VITALS: BP 123/67
--- NOTE | 2019-03-22 12:53 | NUR ---
pt states that he had a small BM earlier today, RN did not witness.
[2019-03-22 16:00] VITALS: BP 122/63
--- NOTE | 2019-03-22 19:10 | NUR ---
Pt. had a big BM today reports feeling better.
--- NOTE | 2019-03-22 19:36 | NUR ---
HAND-OFF: Report given to Cornelio/rn pt is in stable condition had B/M today.
--- NOTE | 2019-03-22 19:36 | NUR ---
NURSE NOTES: Pt is in bed, awake and verbal. No acute distress noted. Pt had a large BM today per day shift nurse.Pt instructed to call before getting out of bed. Bed locked low in position,side rails up and call light within reach. Pt will be monitored.
[2019-03-22 20:00] VITALS: BP 109/53
[2019-03-23] VITALS (7 sets, daily range): BP systolic 95–145; BP diastolic 58–86
--- NOTE | 2019-03-23 04:35 | NUR ---
NURSE NOTES: Pt is in bed, asleep. No acute distress noted.
--- NOTE | 2019-03-23 07:25 | NUR ---
HAND-OFF: Report given to Mana Malcolm LVN.
[2019-03-23 07:27] LABS: BASOPHILS % (AUTO) 1.2 % (0.0-2.0); EOSINOPHILS % (AUTO) 3.2 % (0.0-3.0); HEMATOCRIT 39.8 % (42.0-52.0); HEMOGLOBIN 13.5 G/DL (14.2-18.0); LYMPHOCYTES % (AUTO) 33.9 % (20.0-45.0); MEAN CORPUSCULAR VOLUME 88 FL (80-99); MONOCYTES % (AUTO) 6.1 % (1.0-10.0); NEUTROPHILS % (AUTO) 55.6 % (45.0-75.0); PLATELET COUNT 240 K/UL (150-450); RED BLOOD COUNT 4.53 M/UL (4.70-6.10); RED CELL DISTRIBUTION WIDTH 12.2 % (11.6-14.8); WHITE BLOOD COUNT 7.1 K/UL (4.8-10.8)
[2019-03-23 07:50] LABS: ANION GAP 6 mmol/L (5-15); BLOOD UREA NITROGEN 23 mg/dL (7-18); CALCIUM 9.3 MG/DL (8.5-10.1); CARBON DIOXIDE 28 MMOL/L (21-32); CHLORIDE 104 MMOL/L (98-107); CREATININE 1.3 MG/DL (0.55-1.30); POTASSIUM 4.4 MMOL/L (3.5-5.1); SODIUM 138 MMOL/L (136-145)
--- NOTE | 2019-03-23 08:00 | NUR ---
NURSE NOTES: Pt is in bed, a/a/ox4, able to make things known. No c/o pain/discomfort noted. no apparent distress noted. patient able to ambulate with a walker. instructed to utilize call light to get up. kept bed in the lowest position. siderails are up x2 and bed is in the lock mode. call light is within reach. will cont to monitor.
[2019-03-23] MEDS: Tamsulosin 0.4mg cap ORAL SCH (08:51)
[2019-03-23] MEDS: Docusate 100mg tablet ORAL SCH ×3 (08:51→17:06)
--- NOTE | 2019-03-23 08:56 | General Progress Note ---
Assessment/Plan Problem List: (1) BPH (benign prostatic hyperplasia) ICD Codes: N40.0 - Benign prostatic hyperplasia without lower urinary tract symptoms SNOMED: 022356548 (2) Schizophrenia ICD Codes: F20.9 - Schizophrenia, unspecified SNOMED: 93825569 (3) Incarcerated left inguinal hernia ICD Codes: K40.30 - Unilateral inguinal hernia, with obstruction, without gangrene, not specified as recurrent SNOMED: 528342831 Status: stable, progressing Assessment/Plan: pt diet pain control sx f/u cbc bmp am psyc transfer Subjective Constitutional: Reports: weakness Allergies: Coded Allergies: No Known Allergies (Unverified , 03/18/19) All Systems: reviewed and negative except above Subjective sleepy calm in bed Objective Last 24 Hour Vital Signs Date Time Temp Pulse Resp B/P (MAP) Pulse Ox O2 Delivery O2 Flow Rate FiO2 03/23/19 04:00 98.0 61 16 100/59 (73) 96 03/23/19 00:00 97.5 68 20 145/86 (105) 98 03/22/19 21:00 Room Air 03/22/19 20:00 98.7 65 18 109/53 (71) 95 03/22/19 16:00 98.8 58 20 122/63 (82) 95 03/22/19 12:00 98.6 60 20 123/67 (85) 94 03/22/19 09:00 Room Air Intake and Output 03/22/19 03/23/19 19:00 07:00 Intake Total 1080 ml 420 ml Balance 1080 ml 420 ml Intake Oral 1080 ml 420 ml # Voids 2 2 Laboratory Tests 03/23/19 05:20: White Blood Count 7.1, Red Blood Count 4.53L, Hemoglobin 13.5L, Hematocrit 39.8L , Mean Corpuscular Volume 88, Mean Corpuscular Hemoglobin 29.8, Mean Corpuscular Hemoglobin Concent 33.9, Red Cell Distribution Width 12.2, Platelet Count 240, Mean Platelet Volume 6.5, Neutrophils (%) (Auto) 55.6, Lymphocytes (% ) (Auto) 33.9, Monocytes (%) (Auto) 6.1, Eosinophils (%) (Auto) 3.2H, Basophils (%) (Auto) 1.2, Sodium Level 138, Potassium Level 4.4, Chloride Level 104, Carbon Dioxide Level 28, Anion Gap 6, Blood Urea Nitrogen 23H, Creatinine 1.3, Estimat Glomerular Filtration Rate , Glucose Level 83, Calcium Level 9.3 Height (Feet): 5 Height (Inches): 5.00 Weight (Pounds): 158 General Appearance: lethargic EENT: normal ENT inspection Neck: normal alignment Cardiovascular: normal peripheral pulses, normal rate, regular rhythm Respiratory/Chest: chest wall non-tender, lungs clear, normal breath sounds Abdomen: normal bowel sounds, non tender, soft Extremities: normal inspection Edema: no edema noted Arm (L), no edema noted Arm (R), no edema noted Leg (L), no edema noted Leg (R), no edema noted Pedal (L), no edema noted Pedal (R), no edema noted Generalized Neurologic: motor weakness Skin: normal pigmentation, warm/dry Mg Aranda DO Mar 23, 2019 08:56
--- NOTE | 2019-03-23 12:22 | Surgery Progress Note ---
Surgery Progress Note Subjective Symptoms: improved, tolerating diet, voiding well, passing flatus Objective Last 24 Hour Vital Signs Date Time Temp Pulse Resp B/P (MAP) Pulse Ox O2 Delivery O2 Flow Rate FiO2 03/23/19 12:03 98.0 59 18 113/58 (76) 96 03/23/19 08:00 98.8 61 17 95/65 (75) 95 03/23/19 04:00 98.0 61 16 100/59 (73) 96 03/23/19 00:00 97.5 68 20 145/86 (105) 98 03/22/19 21:00 Room Air 03/22/19 20:00 98.7 65 18 109/53 (71) 95 03/22/19 16:00 98.8 58 20 122/63 (82) 95 I&O Intake and Output 03/22/19 03/23/19 19:00 07:00 Intake Total 1080 ml 420 ml Balance 1080 ml 420 ml Intake Oral 1080 ml 420 ml # Voids 2 2 Cardiovascular: RSR Respiratory: clear Abdomen: soft, flat, present bowel sounds, non-distended Extremities: no cyanosis Laboratory Tests Test 03/23/19 05:20 White Blood Count 7.1 K/UL (4.8-10.8) Red Blood Count 4.53 M/UL (4.70-6.10) L Hemoglobin 13.5 G/DL (14.2-18.0) L Hematocrit 39.8 % (42.0-52.0) L Mean Corpuscular Volume 88 FL (80-99) Mean Corpuscular Hemoglobin 29.8 PG (27.0-31.0) Mean Corpuscular Hemoglobin Concent 33.9 G/DL (32.0-36.0) Red Cell Distribution Width 12.2 % (11.6-14.8) Platelet Count 240 K/UL (150-450) Mean Platelet Volume 6.5 FL (6.5-10.1) Neutrophils (%) (Auto) 55.6 % (45.0-75.0) Lymphocytes (%) (Auto) 33.9 % (20.0-45.0) Monocytes (%) (Auto) 6.1 % (1.0-10.0) Eosinophils (%) (Auto) 3.2 % (0.0-3.0) H Basophils (%) (Auto) 1.2 % (0.0-2.0) Sodium Level 138 MMOL/L (136-145) Potassium Level 4.4 MMOL/L (3.5-5.1) Chloride Level 104 MMOL/L (98-107) Carbon Dioxide Level 28 MMOL/L (21-32) Anion Gap 6 mmol/L (5-15) Blood Urea Nitrogen 23 mg/dL (7-18) H Creatinine 1.3 MG/DL (0.55-1.30) Estimat Glomerular Filtration Rate mL/min (>60) Glucose Level 83 MG/DL (74-106) Calcium Level 9.3 MG/DL (8.5-10.1) Plan Problems: (1) Incarcerated left inguinal hernia Assessment & Plan: This is a 79-year-old male with multiple medical comorbidities is a [facility] resident that presented with lower abdominal pelvic pain and discomfort and bulge. Patient was identified to have a large incarcerated left inguinal hernia. Fortunately with patient's consent I was able to tentatively reduce the hernia at the bedside in the emergency department. Patient states he feels much better. The contents of the hernia sac were noted to enter the abdominal cavity and palpable defect identified. Recommend admission for monitoring, work-up, exams. okay for clear liquid diet AM labs will follow with serial exams if remains reduced can consider elective repair. if incarcerates again, develops abd pain, worsening labs, may require surgery as exact history and timing/onset unknown. fortunately hernia was not very tender when first noted and did not seem strangulated but rather simple incarceration that was reduced without significant discomfort to patient thank you will follow with recs given hernia and size and scrotal in [facility] patient would recommend repair patient reluctant to have surgery at this time will respect wishes. diet as tolerated d/c planning okay to d/c from surgical standpoint with outpatient follow up if changes his mind about surgery Aroldo aMc Mar 23, 2019 12:22
--- NOTE | 2019-03-23 14:53 | Cardiology Report ---
APPROVED REPORT EKG Measurement Heart [id number] Normal sinus rhythm Increased R/S ratio in V1, consider early transition or posterior infarct Abnormal ECG
--- NOTE | 2019-03-23 18:54 | NUR ---
HAND-OFF: Report given to Marielle.
--- NOTE | 2019-03-23 18:54 | NUR ---
NURSE NOTES:Patient received from Khushbu L.V.N Patient denies any pain at thie time . no s/s of distress noted .LFA g#20 H/L Patent and intact. Patient ambulated with walker . safety/ fall precautions call light within reach . bed in low position at all times . will continue to monitor.
--- NOTE | 2019-03-23 19:34 | Pulmonology Progress Note ---
Assessment/Plan Problems: (1) Incarcerated left inguinal hernia (2) Depression (3) BPH (benign prostatic hyperplasia) (4) Schizophrenia Assessment/Plan eating well doing better check electrolytes No BM yet psych evaluation for competency. dvt prophylaxis. Subjective ROS Limited/Unobtainable: No Constitutional: Reports: no symptoms HEENT: Repors: no symptoms Respiratory: Reports: no symptoms Allergies: Coded Allergies: No Known Allergies (Unverified , 03/18/19) Objective Last 24 Hour Vital Signs Date Time Temp Pulse Resp B/P (MAP) Pulse Ox O2 Delivery O2 Flow Rate FiO2 03/23/19 16:00 98.4 62 17 107/62 (77) 93 03/23/19 12:03 98.0 59 18 113/58 (76) 96 03/23/19 08:00 98.8 61 17 95/65 (75) 95 03/23/19 04:00 98.0 61 16 100/59 (73) 96 03/23/19 00:00 97.5 68 20 145/86 (105) 98 03/22/19 21:00 Room Air 03/22/19 20:00 98.7 65 18 109/53 (71) 95 Intake and Output 03/22/19 03/23/19 18:59 06:59 Intake Total 1080 ml 420 ml Balance 1080 ml 420 ml Intake Oral 1080 ml 420 ml # Voids 2 2 General Appearance: WD/WN HEENT: normocephalic, atraumatic Respiratory/Chest: chest wall non-tender, lungs clear Cardiovascular: normal peripheral pulses, normal rate Abdomen: normal bowel sounds, soft, non tender Genitourinary: normal external genitalia Skin: no lesions 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 Laboratory Tests 03/23/19 05:20: White Blood Count 7.1, Red Blood Count 4.53L, Hemoglobin 13.5L, Hematocrit 39.8L , Mean Corpuscular Volume 88, Mean Corpuscular Hemoglobin 29.8, Mean Corpuscular Hemoglobin Concent 33.9, Red Cell Distribution Width 12.2, Platelet Count 240, Mean Platelet Volume 6.5, Neutrophils (%) (Auto) 55.6, Lymphocytes (% ) (Auto) 33.9, Monocytes (%) (Auto) 6.1, Eosinophils (%) (Auto) 3.2H, Basophils (%) (Auto) 1.2, Sodium Level 138, Potassium Level 4.4, Chloride Level 104, Carbon Dioxide Level 28, Anion Gap 6, Blood Urea Nitrogen 23H, Creatinine 1.3, Estimat Glomerular Filtration Rate , Glucose Level 83, Calcium Level 9.3 Current Medications Medications (Trade) Dose Ordered Sig/Pati Route PRN Reason Start Time Stop Time Status Last Admin Dose Admin Acetaminophen (Tylenol) 650 mg Q4H PRN ORAL fever 03/18/19 21:15 04/17/19 21:14 Dextrose (Dextrose 50%) 25 ml Q30M PRN IV Hypoglycemia 03/18/19 21:15 04/17/19 21:07 Dextrose (Dextrose 50%) 50 ml Q30M PRN IV hypoglycemia 03/18/19 21:15 04/17/19 21:14 Docusate Sodium (Colace) 100 mg TID ORAL 03/20/19 18:00 04/19/19 17:59 03/23/19 17:06 Finasteride (Proscar) 5 mg DAILY ORAL 03/19/19 09:00 04/18/19 08:59 03/23/19 08:51 Iopamidol (Isovue-300 100ml) 100 ml NOW PRN INJ Radiology Procedure 03/18/19 18:00 Lorazepam (Ativan 2mg/ml 1ml) 0.5 mg Q4H PRN IV For Anxiety 03/18/19 21:15 03/25/19 21:14 Magnesium Hydroxide (Mom) 30 ml DAILYPRN PRN ORAL Constipation 03/21/19 15:00 04/20/19 14:59 03/22/19 11:22 Mirtazapine (Remeron) 7.5 mg BEDTIME ORAL 03/19/19 21:00 04/18/19 20:59 03/22/19 20:45 Morphine Sulfate (Morphine Sulfate) 1 mg Q4H PRN IVP For Pain 03/18/19 21:15 03/25/19 21:14 Ondansetron HCl (Zofran) 4 mg Q6H PRN IVP Nausea & Vomiting 03/18/19 21:15 04/17/19 21:14 Polyethylene Glycol (Miralax) 17 gm HSPRN PRN ORAL Constipation 03/18/19 21:15 04/17/19 21:14 03/21/19 13:10 Tamsulosin HCl (Flomax) 0.4 mg DAILY ORAL 03/19/19 09:00 04/18/19 08:59 03/23/19 08:51 Zolpidem Tartrate (Ambien) 5 mg HSPRN PRN ORAL Insomnia 03/18/19 21:15 03/25/19 21:14 Katarzyna Escobedo MD Mar 23, 2019 19:34
[2019-03-24] VITALS: BP 132/77
--- NOTE | 2019-03-24 03:30 | Consultation ---
DATE OF CONSULTATION: 03/22/2019 NOTE: POOR AUDIO. PSYCHOTHERAPY CONSULTATION PROGRESS NOTE CONSULTING PHYSICIAN: Apolinar Weaver PsyD. TREATING ATTENDING: Mg Aranda D.O. HISTORY OF PRESENT ILLNESS: The patient is an 79-year-old male from [facility] came to the hospital for abdominal pain, apparently possible hernia. The patient is having depression and schizophrenia. The patient is confused. . The patient does have pain in stomach, , irritable. . Denies suicidal or homicidal thoughts. any auditory or visual hallucinations. Very confused. PAST MEDICAL HISTORY: Hyperlipidemia, arthritis, weakness. ALLERGIES: The patient has no known drug allergies. SUBSTANCE ABUSE HISTORY: smoking cigarettes. PSYCHIATRIC HISTORY: The patient has history of depression and schizophrenia. Continues psychotropic medications in the past. . MENTAL STATUS EXAMINATION: Alert and oriented to person and place. Mood is irritable. Affect . Poor attention . . . Apolinar Weaver PsyD. DR: JASON JOB#: [id number] CC:
[2019-03-24 04:00] VITALS: BP 126/78
[2019-03-24 06:46] LABS: BASOPHILS % (AUTO) 1.5 % (0.0-2.0); EOSINOPHILS % (AUTO) 2.9 % (0.0-3.0); HEMATOCRIT 40.7 % (42.0-52.0); HEMOGLOBIN 13.7 G/DL (14.2-18.0); LYMPHOCYTES % (AUTO) 33.6 % (20.0-45.0); MEAN CORPUSCULAR VOLUME 87 FL (80-99); MONOCYTES % (AUTO) 5.5 % (1.0-10.0); NEUTROPHILS % (AUTO) 56.6 % (45.0-75.0); PLATELET COUNT 219 K/UL (150-450); RED BLOOD COUNT 4.65 M/UL (4.70-6.10); RED CELL DISTRIBUTION WIDTH 12.2 % (11.6-14.8); WHITE BLOOD COUNT 7.2 K/UL (4.8-10.8)
[2019-03-24 06:51] LABS: ANION GAP 8 mmol/L (5-15); BLOOD UREA NITROGEN 23 mg/dL (7-18); CARBON DIOXIDE 27 MMOL/L (21-32); CHLORIDE 104 MMOL/L (98-107); CREATININE 1.3 MG/DL (0.55-1.30); POTASSIUM 4.2 MMOL/L (3.5-5.1); SODIUM 138 MMOL/L (136-145)
--- NOTE | 2019-03-24 07:10 | NUR ---
HAND-OFF: Report given to Yael Murillo
--- NOTE | 2019-03-24 07:56 | NUR ---
NURSE NOTES: Pt in restroom encouraged to wait for assistance, for bathroom needs 2 to gait. Per outgoing nurse report gait is not steady. Bed Alarm will be used for safety measure. Denies having a BM at this time. Current plan will be followed
[2019-03-24 08:00] VITALS: BP 94/59
[2019-03-24] MEDS: Tamsulosin 0.4mg cap ORAL SCH (08:48)
[2019-03-24] MEDS: Docusate 100mg tablet ORAL SCH ×3 (08:48→18:39)
--- NOTE | 2019-03-24 09:03 | General Progress Note ---
Assessment/Plan Problem List: (1) BPH (benign prostatic hyperplasia) ICD Codes: N40.0 - Benign prostatic hyperplasia without lower urinary tract symptoms SNOMED: 533728301 (2) Schizophrenia ICD Codes: F20.9 - Schizophrenia, unspecified SNOMED: 06275404 (3) Incarcerated left inguinal hernia ICD Codes: K40.30 - Unilateral inguinal hernia, with obstruction, without gangrene, not specified as recurrent SNOMED: 272193239 Status: stable, progressing Assessment/Plan: pt diet pain control sx f/u cbc bmp am psyc transfer Subjective Constitutional: Reports: weakness Allergies: Coded Allergies: No Known Allergies (Unverified , 03/18/19) All Systems: reviewed and negative except above Subjective sleepy calm in bed Objective Last 24 Hour Vital Signs Date Time Temp Pulse Resp B/P (MAP) Pulse Ox O2 Delivery O2 Flow Rate FiO2 03/24/19 08:00 97.9 60 20 94/59 (71) 96 03/24/19 04:00 98.2 78 20 126/78 (94) 98 03/24/19 00:00 97.3 69 19 132/77 (95) 98 03/23/19 20:01 97.2 70 18 121/72 (88) 97 03/23/19 16:00 98.4 62 17 107/62 (77) 93 03/23/19 12:03 98.0 59 18 113/58 (76) 96 Intake and Output 03/23/19 03/24/19 19:00 07:00 Intake Total 640 ml 560 ml Balance 640 ml 560 ml Intake Oral 640 ml 560 ml # Voids 3 3 Laboratory Tests 03/24/19 05:15: White Blood Count 7.2, Red Blood Count 4.65L, Hemoglobin 13.7L, Hematocrit 40.7L , Mean Corpuscular Volume 87, Mean Corpuscular Hemoglobin 29.4, Mean Corpuscular Hemoglobin Concent 33.6, Red Cell Distribution Width 12.2, Platelet Count 219, Mean Platelet Volume 6.4L, Neutrophils (%) (Auto) 56.6, Lymphocytes ( %) (Auto) 33.6, Monocytes (%) (Auto) 5.5, Eosinophils (%) (Auto) 2.9, Basophils (%) (Auto) 1.5, Sodium Level 138, Potassium Level 4.2, Chloride Level 104, Carbon Dioxide Level 27, Anion Gap 8, Blood Urea Nitrogen 23H, Creatinine 1.3, Estimat Glomerular Filtration Rate , Glucose Level 80, Calcium Level 9.0 Height (Feet): 5 Height (Inches): 5.00 Weight (Pounds): 158 General Appearance: lethargic EENT: normal ENT inspection Neck: normal alignment Cardiovascular: normal peripheral pulses, normal rate, regular rhythm Respiratory/Chest: chest wall non-tender, lungs clear, normal breath sounds Abdomen: normal bowel sounds, non tender, soft Extremities: normal inspection Edema: no edema noted Arm (L), no edema noted Arm (R), no edema noted Leg (L), no edema noted Leg (R), no edema noted Pedal (L), no edema noted Pedal (R), no edema noted Generalized Neurologic: motor weakness Skin: normal pigmentation, warm/dry Mg Aranda DO Mar 24, 2019 09:03
--- NOTE | 2019-03-24 11:52 | Surgery Progress Note ---
Surgery Progress Note Subjective Symptoms: improved, tolerating diet, voiding well, passing flatus, pain decreased Objective Last 24 Hour Vital Signs Date Time Temp Pulse Resp B/P (MAP) Pulse Ox O2 Delivery O2 Flow Rate FiO2 03/24/19 08:00 97.9 60 20 94/59 (71) 96 03/24/19 04:00 98.2 78 20 126/78 (94) 98 03/24/19 00:00 97.3 69 19 132/77 (95) 98 03/23/19 20:01 97.2 70 18 121/72 (88) 97 03/23/19 16:00 98.4 62 17 107/62 (77) 93 03/23/19 12:03 98.0 59 18 113/58 (76) 96 I&O Intake and Output 03/23/19 03/24/19 19:00 07:00 Intake Total 640 ml 560 ml Balance 640 ml 560 ml Intake Oral 640 ml 560 ml # Voids 3 3 Cardiovascular: RSR Respiratory: clear Abdomen: soft, flat, non-tender, present bowel sounds, non-distended Extremities: no edema, no tenderness, no cyanosis Laboratory Tests Test 03/24/19 05:15 White Blood Count 7.2 K/UL (4.8-10.8) Red Blood Count 4.65 M/UL (4.70-6.10) L Hemoglobin 13.7 G/DL (14.2-18.0) L Hematocrit 40.7 % (42.0-52.0) L Mean Corpuscular Volume 87 FL (80-99) Mean Corpuscular Hemoglobin 29.4 PG (27.0-31.0) Mean Corpuscular Hemoglobin Concent 33.6 G/DL (32.0-36.0) Red Cell Distribution Width 12.2 % (11.6-14.8) Platelet Count 219 K/UL (150-450) Mean Platelet Volume 6.4 FL (6.5-10.1) L Neutrophils (%) (Auto) 56.6 % (45.0-75.0) Lymphocytes (%) (Auto) 33.6 % (20.0-45.0) Monocytes (%) (Auto) 5.5 % (1.0-10.0) Eosinophils (%) (Auto) 2.9 % (0.0-3.0) Basophils (%) (Auto) 1.5 % (0.0-2.0) Sodium Level 138 MMOL/L (136-145) Potassium Level 4.2 MMOL/L (3.5-5.1) Chloride Level 104 MMOL/L (98-107) Carbon Dioxide Level 27 MMOL/L (21-32) Anion Gap 8 mmol/L (5-15) Blood Urea Nitrogen 23 mg/dL (7-18) H Creatinine 1.3 MG/DL (0.55-1.30) Estimat Glomerular Filtration Rate mL/min (>60) Glucose Level 80 MG/DL (74-106) Calcium Level 9.0 MG/DL (8.5-10.1) Plan Problems: (1) Incarcerated left inguinal hernia Assessment & Plan: This is a 79-year-old male with multiple medical comorbidities is a [facility] that presented with lower abdominal pelvic pain and discomfort and bulge. Patient was identified to have a large incarcerated left inguinal hernia. Fortunately with patient's consent I was able to tentatively reduce the hernia at the bedside in the emergency department. Patient states he feels much better. The contents of the hernia sac were noted to enter the abdominal cavity and palpable defect identified. Recommend admission for monitoring, work-up, exams. okay for clear liquid diet AM labs will follow with serial exams if remains reduced can consider elective repair. if incarcerates again, develops abd pain, worsening labs, may require surgery as exact history and timing/onset unknown. fortunately hernia was not very tender when first noted and did not seem strangulated but rather simple incarceration that was reduced without significant discomfort to patient thank you will follow with recs given hernia and size and [facility]al [facility] patient would recommend repair patient reluctant to have surgery at this time will respect wishes. diet as tolerated d/c planning okay to d/c from surgical standpoint with outpatient follow up if changes his mind about surgery Aroldo Mac Mar 24, 2019 11:52
[2019-03-24 12:00] VITALS: BP 101/60
--- NOTE | 2019-03-24 12:15 | Pulmonology Progress Note ---
Assessment/Plan Problems: (1) Incarcerated left inguinal hernia (2) Depression (3) BPH (benign prostatic hyperplasia) (4) Schizophrenia Assessment/Plan eating well doing better check electrolytes No BM yet psych evaluation for competency. dvt prophylaxis. Subjective ROS Limited/Unobtainable: No Constitutional: Reports: no symptoms HEENT: Repors: no symptoms Respiratory: Reports: no symptoms Allergies: Coded Allergies: No Known Allergies (Unverified , 03/18/19) Objective Last 24 Hour Vital Signs Date Time Temp Pulse Resp B/P (MAP) Pulse Ox O2 Delivery O2 Flow Rate FiO2 03/24/19 08:00 97.9 60 20 94/59 (71) 96 03/24/19 04:00 98.2 78 20 126/78 (94) 98 03/24/19 00:00 97.3 69 19 132/77 (95) 98 03/23/19 20:01 97.2 70 18 121/72 (88) 97 03/23/19 16:00 98.4 62 17 107/62 (77) 93 Intake and Output 03/23/19 03/24/19 19:00 07:00 Intake Total 640 ml 560 ml Balance 640 ml 560 ml Intake Oral 640 ml 560 ml # Voids 3 3 General Appearance: WD/WN HEENT: normocephalic, atraumatic Respiratory/Chest: chest wall non-tender, lungs clear Cardiovascular: normal peripheral pulses Abdomen: soft, non tender, no organomegaly Genitourinary: normal external genitalia Extremities: no cyanosis Skin: no rash 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, no motor/sensory deficits Musculoskeletal: normal muscle bulk Laboratory Tests 03/24/19 05:15: White Blood Count 7.2, Red Blood Count 4.65L, Hemoglobin 13.7L, Hematocrit 40.7L , Mean Corpuscular Volume 87, Mean Corpuscular Hemoglobin 29.4, Mean Corpuscular Hemoglobin Concent 33.6, Red Cell Distribution Width 12.2, Platelet Count 219, Mean Platelet Volume 6.4L, Neutrophils (%) (Auto) 56.6, Lymphocytes ( %) (Auto) 33.6, Monocytes (%) (Auto) 5.5, Eosinophils (%) (Auto) 2.9, Basophils (%) (Auto) 1.5, Sodium Level 138, Potassium Level 4.2, Chloride Level 104, Carbon Dioxide Level 27, Anion Gap 8, Blood Urea Nitrogen 23H, Creatinine 1.3, Estimat Glomerular Filtration Rate , Glucose Level 80, Calcium Level 9.0 Current Medications Medications (Trade) Dose Ordered Sig/Pati Route PRN Reason Start Time Stop Time Status Last Admin Dose Admin Acetaminophen (Tylenol) 650 mg Q4H PRN ORAL fever 03/18/19 21:15 04/17/19 21:14 Dextrose (Dextrose 50%) 25 ml Q30M PRN IV Hypoglycemia 03/18/19 21:15 04/17/19 21:07 Dextrose (Dextrose 50%) 50 ml Q30M PRN IV hypoglycemia 03/18/19 21:15 04/17/19 21:14 Docusate Sodium (Colace) 100 mg TID ORAL 03/20/19 18:00 04/19/19 17:59 03/24/19 08:48 Finasteride (Proscar) 5 mg DAILY ORAL 03/19/19 09:00 04/18/19 08:59 03/24/19 08:48 Iopamidol (Isovue-300 100ml) 100 ml NOW PRN INJ Radiology Procedure 03/18/19 18:00 Lorazepam (Ativan 2mg/ml 1ml) 0.5 mg Q4H PRN IV For Anxiety 03/18/19 21:15 03/25/19 21:14 Magnesium Hydroxide (Mom) 30 ml DAILYPRN PRN ORAL Constipation 03/21/19 15:00 04/20/19 14:59 03/22/19 11:22 Mirtazapine (Remeron) 7.5 mg BEDTIME ORAL 03/19/19 21:00 04/18/19 20:59 03/23/19 20:31 Morphine Sulfate (Morphine Sulfate) 1 mg Q4H PRN IVP For Pain 03/18/19 21:15 03/25/19 21:14 Ondansetron HCl (Zofran) 4 mg Q6H PRN IVP Nausea & Vomiting 03/18/19 21:15 04/17/19 21:14 Polyethylene Glycol (Miralax) 17 gm HSPRN PRN ORAL Constipation 03/18/19 21:15 04/17/19 21:14 03/21/19 13:10 Risperidone (RisperDAL) 0.5 mg BID ORAL 03/24/19 09:00 04/23/19 08:59 03/24/19 08:48 Tamsulosin HCl (Flomax) 0.4 mg DAILY ORAL 03/19/19 09:00 04/18/19 08:59 03/24/19 08:48 Zolpidem Tartrate (Ambien) 5 mg HSPRN PRN ORAL Insomnia 03/18/19 21:15 03/25/19 21:14 Katarzyna Escobedo MD Mar 24, 2019 12:15
--- NOTE | 2019-03-24 13:26 | Cardiology Report ---
APPROVED REPORT EXAM: Two-dimensional and M-mode echocardiogram with Doppler and color Doppler. INDICATION Pre-Op M-Mode DIMENSIONS IVSd1.0 (0.7-1.1cm)Left Atrium (MM)4.7 (1.6-4.0cm) LVDd4.5 (3.5-5.6cm)Aortic Root3.8 (2.0-3.7cm) PWd1.1 (0.7-1.1cm)Aortic Cusp Exc.1.6 (1.5-2.0cm) LVDs3.0 (2.5-4.0cm) PWs1.5 cm Normal left ventricular chamber size, systolic function and wall motion. Left ventricular ejection fraction estimated to be 55-60 %. Borderline left ventricular hypertrophy. No evidence of pericardial effusion. Left atrial size at upper limits of normal. Right cardiac chamber sizes are within normal limits. mildly reduced Thickened mitral valve leaflets with normal excursion. Mitral annulus and aortic root calcification. Pulmonic valve not well visualized. Normal tricuspid valve structure. IVC at normal size with physiologic collapse. A color flow and spectral Doppler study was performed and revealed: Moderate aortic regurgitation. Peak aortic valve gradient of 17 mmHg and a mean of 11 mmHg. Aortic valve area 1.4 cm2 calculated by continuity equation. Mild mitral regurgitation. Mitral diastolic velocities suggest reduced left ventricular relaxation c/w mild LV diastolic dysfunction (Grade I). Trace tricuspid regurgitation. Tricuspid systolic velocities suggests peak right ventricular systolic pressure of 14 mmHg. Pulmonic regurgitation present.
[2019-03-24 16:00] VITALS: BP 106/55
--- NOTE | 2019-03-24 17:20 | NUR ---
Clinical CoordinatorPersonal Finance Instructor SI: Abdominal pain, S/P Hernia Reduction BP:101/60 T:98.8 RR:18 02 Sat:97% HR:61 BUN:23 IS: Colace PO Flomax PO Proscar PO Miralax PO MOM PO DCP: Pending Psych Placement M/S Status
--- NOTE | 2019-03-24 17:30 | NUR ---
NURSE NOTES: Pt required monitoring for safety measures due to gait. Did have a bm ths shift. Stool softener effective. Pt states bowel movement large. Pt verbalized concerns about missing shoes , inventory sheet did not list shoes. Pt informed that shoes was not listed. Pt cooperated with plan of care. Allowed mortgage underwriter to cut his eyebrow hairs, obstructing pt view. Bx calm this shift. Call light is in reach
--- NOTE | 2019-03-24 19:20 | NUR ---
NURSE NOTES: Report taken from LIANA Conley. Patient is asleep in bed, responds to name and touch. A&Ox3, he is not aware as to where he is at times. No sings of distress on room air. No complaints of pain. IV site removed, will place new IV, no fluids running per orders. Skin is intact. Bed in lowest position, call light within reach.
[2019-03-24 20:00] VITALS: BP 103/64
--- NOTE | 2019-03-24 20:21 | NUR ---
HAND-OFF: Report given to Isaías GAINES .
[2019-03-25] VITALS: BP 108/61
--- NOTE | 2019-03-25 02:45 | Consultation ---
DATE OF CONSULTATION: 03/24/2019 HISTORY OF PRESENT ILLNESS: The patient is an 79-year-old male patient with non-reducible inguinal hernia. He also has altered mental status and diagnosis of major depressive disorder, severe, recurrent with psychotic features. He has history of mood lability and agitation. That is why, his attending has requested daily psychiatric consultation to help stabilize his mood and psychotropic medications. He is slightly irritable on interview, but he is confused, disorganized, and seem to be a poor historian and he has got no logical plan for his own self-care. PAST MEDICAL HISTORY: Inguinal hernia. ALLERGIES: He has allergies to penicillin. SUBSTANCE ABUSE HISTORY: Denies. PSYCHOTROPIC MEDICATIONS: On admission, he is on Risperdal 0.5 mg twice a day. He is on Ativan as needed and Remeron 7.5 mg at bedtime. . PAIN ASSESSMENT: ___. DEVELOPMENTAL PROBLEMS: Denies. SOCIAL HISTORY: The patient lives in [facility]. Financially supported by [facility] and Medicare. STRENGTHS: . PSYCHIATRIC HISTORY: Major depressive disorder, severe, recurrent with psychotic features, rule out dementia with psychosis. He has been on psychotropic medications before. MENTAL STATUS EXAMINATION: An 79-year-old male. Appearance is disheveled. Attitude, irritable and agitated. Affect, guarded and restricted. Intellect poor. Mood, depressed and anxious. Motor activity, psychomotor agitation. Attention span is poor. Orientation x2. Speech is low volume, slurred. Thought process, disorganized and illogical. Insight and judgment is poor. DIAGNOSIS: Major depressive disorder, severe, recurrent with psychotic features; rule out dementia with psychosis. No secondary medical inguinal hernia, psychosocial stressors, financial impairment is severe. PLAN: Treat this patient with Remeron 7.5 mg at bedtime, Risperdal 0.5 mg twice a day, Ativan 0.5 mg IV q.4 h. p.r.n. anxiety and agitation, Namenda 5 mg twice a day. A 20 minutes of cognitive behavioral therapy to help identify his automatic negative thoughts and help him convert his negative thoughts to more positive thoughts to reduce depression, anxiety, and help him up with more adaptive behavioral pattern. Valentino Bryan M.D. DR: EMILY JOB#: [id number] CC:
[2019-03-25 04:00] VITALS: BP 114/68
[2019-03-25 06:11] LABS: EOSINOPHILS % (AUTO) 3.2 % (0.0-3.0); HEMOGLOBIN 13.8 G/DL (14.2-18.0); LYMPHOCYTES % (AUTO) 33.4 % (20.0-45.0); MEAN CORPUSCULAR VOLUME 87 FL (80-99); MONOCYTES % (AUTO) 5.8 % (1.0-10.0); NEUTROPHILS % (AUTO) 56.7 % (45.0-75.0); PLATELET COUNT 242 K/UL (150-450); RED BLOOD COUNT 4.69 M/UL (4.70-6.10); RED CELL DISTRIBUTION WIDTH 12.2 % (11.6-14.8); WHITE BLOOD COUNT 6.9 K/UL (4.8-10.8)
[2019-03-25 06:28] LABS: ANION GAP 8 mmol/L (5-15); BLOOD UREA NITROGEN 22 mg/dL (7-18); CALCIUM 9.1 MG/DL (8.5-10.1); CARBON DIOXIDE 26 MMOL/L (21-32); CHLORIDE 103 MMOL/L (98-107); CREATININE 1.2 MG/DL (0.55-1.30); SODIUM 137 MMOL/L (136-145)
--- NOTE | 2019-03-25 07:36 | NUR ---
HAND-OFF: Report given to LIANA Acosta. Patient is asleep and stable.
--- NOTE | 2019-03-25 07:37 | NUR ---
NURSE NOTES: WALKING ROUNDS DONE WITH OUTGOING RN. PATIENT ASLEEP IN BED. BED IN LOW AND LOCKED POSITION. CALL LIGHT WITHIN REACH.
[2019-03-25 08:00] VITALS: BP 132/75
--- NOTE | 2019-03-25 08:14 | Surgery Progress Note ---
Surgery Progress Note Subjective Symptoms: improved, pain absent, tolerating diet, voiding well, passing flatus Objective Last 24 Hour Vital Signs Date Time Temp Pulse Resp B/P (MAP) Pulse Ox O2 Delivery O2 Flow Rate FiO2 03/25/19 04:00 97.5 57 18 114/68 (83) 97 03/25/19 00:00 98.2 60 18 108/61 (77) 97 03/24/19 21:00 Room Air 03/24/19 20:00 98.7 66 18 103/64 (77) 95 03/24/19 16:00 98.7 54 20 106/55 (72) 95 91 03/24/19 12:00 98.8 61 18 101/60 (74) 97 I&O Intake and Output 03/24/19 03/25/19 19:00 07:00 Intake Total 300 ml Balance 300 ml Intake Oral 300 ml # Voids 3 4 Cardiovascular: RSR Respiratory: clear Abdomen: soft, flat, non-tender, present bowel sounds, other - still with reducible hernia Extremities: no cyanosis Laboratory Tests Test 03/25/19 05:25 White Blood Count 6.9 K/UL (4.8-10.8) Red Blood Count 4.69 M/UL (4.70-6.10) L Hemoglobin 13.8 G/DL (14.2-18.0) L Hematocrit 41.0 % (42.0-52.0) L Mean Corpuscular Volume 87 FL (80-99) Mean Corpuscular Hemoglobin 29.5 PG (27.0-31.0) Mean Corpuscular Hemoglobin Concent 33.8 G/DL (32.0-36.0) Red Cell Distribution Width 12.2 % (11.6-14.8) Platelet Count 242 K/UL (150-450) Mean Platelet Volume 6.8 FL (6.5-10.1) Neutrophils (%) (Auto) 56.7 % (45.0-75.0) Lymphocytes (%) (Auto) 33.4 % (20.0-45.0) Monocytes (%) (Auto) 5.8 % (1.0-10.0) Eosinophils (%) (Auto) 3.2 % (0.0-3.0) H Basophils (%) (Auto) 1.0 % (0.0-2.0) Sodium Level 137 MMOL/L (136-145) Potassium Level 4.0 MMOL/L (3.5-5.1) Chloride Level 103 MMOL/L (98-107) Carbon Dioxide Level 26 MMOL/L (21-32) Anion Gap 8 mmol/L (5-15) Blood Urea Nitrogen 22 mg/dL (7-18) H Creatinine 1.2 MG/DL (0.55-1.30) Estimat Glomerular Filtration Rate mL/min (>60) Glucose Level 88 MG/DL (74-106) Calcium Level 9.1 MG/DL (8.5-10.1) Plan Problems: (1) Incarcerated left inguinal hernia Assessment & Plan: This is a 79-year-old male with multiple medical comorbidities is a sn[facility] resident that presented with lower abdominal pelvic pain and discomfort and bulge. Patient was identified to have a large incarcerated left inguinal hernia. Fortunately with patient's consent I was able to tentatively reduce the hernia at the bedside in the emergency department. Patient states he feels much better. The contents of the hernia sac were noted to enter the abdominal cavity and palpable defect identified. Recommend admission for monitoring, work-up, exams. okay for clear liquid diet AM labs will follow with serial exams if remains reduced can consider elective repair. if incarcerates again, develops abd pain, worsening labs, may require surgery as exact history and timing/onset unknown. fortunately hernia was not very tender when first noted and did not seem strangulated but rather simple incarceration that was reduced without significant discomfort to patient thank you will follow with recs given hernia and size and scrotal in snf patient would recommend repair patient reluctant to have surgery at this time will respect wishes. diet as tolerated d/c planning okay to d/c from surgical standpoint with outpatient follow up if changes his mind about surgery Aroldo Mac Mar 25, 2019 08:14
[2019-03-25] MEDS: Miralax 17gm pkt ORAL PRN (09:36)
[2019-03-25] MEDS: Docusate 100mg tablet ORAL SCH ×3 (09:37→17:40)
[2019-03-25] MEDS: Tamsulosin 0.4mg cap ORAL SCH (09:37)
--- NOTE | 2019-03-25 09:44 | Progress Note ---
DATE: 03/25/2019 SUBJECTIVE: This is an 79-year-old male patient. He has possible hernia that causing him to have increased mood lability, agitation, and anxiety disorder. Daily psychiatric consultation requested. I saw and assessed this patient at bedside. He is still depressed and confused. He has mood lability, altered mental status, and overall decline in cognition below his baseline. MENTAL STATUS EXAMINATION: This is an 79-year-old male. His appearance is disheveled. Attitude, irritable and agitated. Affect, guarded and restricted. Intellect poor. Mood, depressed and anxious. Motor activity, psychomotor agitation. Attention span is poor. Orientation x2. Speech is low volume, slurred. Thought process, disorganized and illogical. Insight and judgment is poor. DIAGNOSIS: Major depressive disorder, mild, recurrent with psychotic features, rule out dementia with psychosis. PLAN: Treat him with Namenda 5 mg twice a day, Ativan 0.5 mg IV every 4 hours p.r.n. , Remeron 7.5 mg at bedtime, and Risperdal 0.5 mg twice a day. A 20 minutes of cognitive behavioral therapy to help him identify his automatic negative thoughts and help him convert his negative thoughts to more positive thoughts to reduce depression, anxiety, and mood lability and 20 minutes of cognitive behavioral therapy. Chart reviewed. Discussed with staff. Seen and assessed at bedside. Valentino Bryan M.D. DR: FAINA JOB#: [id number] CC:
--- NOTE | 2019-03-25 10:03 | NUR ---
RD ASSESSMENT & RECOMMENDATIONS SEE CARE ACTIVITY FOR COMPLETE ASSESSMENT DAILY ESTIMATED NEEDS: Needs based on General, advanced age 56.6kg adj 25-30 kcals/kg 4603-7392 total kcals .8-1.2 g protein/kg 45-68 g total protein 25-30 mL/kg 2520-5306 total fluid mLs NUTRITION DIAGNOSIS: No nutritional diagnosis at this time PO DIET RECOMMENDATIONS: Maintain Regular diet/ soft easy chew ADDITIONAL RECOMMENDATIONS: 1) Obtain a standing weight as able
--- NOTE | 2019-03-25 10:54 | NUR ---
SS note This Sw spoke with intake @ [facility] ([phone]) who is requesting chart information to be re-sent. This SW faxed chart information to fax [phone]. Pending evaluation.
[2019-03-25 11:37] VITALS: BP 107/72
--- NOTE | 2019-03-25 12:01 | Pulmonology Progress Note ---
Assessment/Plan Problems: (1) Incarcerated left inguinal hernia (2) Depression (3) BPH (benign prostatic hyperplasia) (4) Schizophrenia Assessment/Plan eating well doing better check electrolytes No BM yet psych evaluation for competency. dvt prophylaxis. Subjective ROS Limited/Unobtainable: No Constitutional: Reports: no symptoms HEENT: Repors: no symptoms Respiratory: Reports: no symptoms Cardiovascular: Reports: no symptoms Gastrointestinal/Abdominal: Reports: no symptoms Genitourinary: Reports: no symptoms Allergies: Coded Allergies: No Known Allergies (Unverified , 03/18/19) Objective Last 24 Hour Vital Signs Date Time Temp Pulse Resp B/P (MAP) Pulse Ox O2 Delivery O2 Flow Rate FiO2 03/25/19 11:37 98.5 59 18 107/72 (84) 95 03/25/19 09:00 Room Air 03/25/19 08:00 97.5 55 18 132/75 (94) 03/25/19 04:00 97.5 57 18 114/68 (83) 97 03/25/19 00:00 98.2 60 18 108/61 (77) 97 03/24/19 21:00 Room Air 03/24/19 20:00 98.7 66 18 103/64 (77) 95 03/24/19 16:00 98.7 54 20 106/55 (72) 95 91 03/24/19 12:00 98.8 61 18 101/60 (74) 97 Intake and Output 03/24/19 03/25/19 19:00 07:00 Intake Total 300 ml Balance 300 ml Intake Oral 300 ml # Voids 3 4 General Appearance: WD/WN Respiratory/Chest: chest wall non-tender, lungs clear Cardiovascular: normal peripheral pulses, normal rate Abdomen: normal bowel sounds, soft, non tender Genitourinary: normal external genitalia Neurologic/Psychiatric: pre billing clinician II-XII grossly normal Laboratory Tests 03/25/19 05:25: White Blood Count 6.9, Red Blood Count 4.69L, Hemoglobin 13.8L, Hematocrit 41.0L , Mean Corpuscular Volume 87, Mean Corpuscular Hemoglobin 29.5, Mean Corpuscular Hemoglobin Concent 33.8, Red Cell Distribution Width 12.2, Platelet Count 242, Mean Platelet Volume 6.8, Neutrophils (%) (Auto) 56.7, Lymphocytes (% ) (Auto) 33.4, Monocytes (%) (Auto) 5.8, Eosinophils (%) (Auto) 3.2H, Basophils (%) (Auto) 1.0, Sodium Level 137, Potassium Level 4.0, Chloride Level 103, Carbon Dioxide Level 26, Anion Gap 8, Blood Urea Nitrogen 22H, Creatinine 1.2, Estimat Glomerular Filtration Rate , Glucose Level 88, Calcium Level 9.1 Current Medications Medications (Trade) Dose Ordered Sig/Pati Route PRN Reason Start Time Stop Time Status Last Admin Dose Admin Acetaminophen (Tylenol) 650 mg Q4H PRN ORAL fever 03/18/19 21:15 04/17/19 21:14 Dextrose (Dextrose 50%) 25 ml Q30M PRN IV Hypoglycemia 03/18/19 21:15 04/17/19 21:07 Dextrose (Dextrose 50%) 50 ml Q30M PRN IV hypoglycemia 03/18/19 21:15 04/17/19 21:14 Docusate Sodium (Colace) 100 mg TID ORAL 03/20/19 18:00 04/19/19 17:59 03/25/19 09:37 Finasteride (Proscar) 5 mg DAILY ORAL 03/19/19 09:00 04/18/19 08:59 03/25/19 09:37 Iopamidol (Isovue-300 100ml) 100 ml NOW PRN INJ Radiology Procedure 03/18/19 18:00 Lorazepam (Ativan 2mg/ml 1ml) 0.5 mg Q4H PRN IV For Anxiety 03/18/19 21:15 03/25/19 21:14 Magnesium Hydroxide (Mom) 30 ml DAILYPRN PRN ORAL Constipation 03/21/19 15:00 04/20/19 14:59 03/22/19 11:22 Mirtazapine (Remeron) 7.5 mg BEDTIME ORAL 03/19/19 21:00 04/18/19 20:59 03/24/19 21:33 Morphine Sulfate (Morphine Sulfate) 1 mg Q4H PRN IVP For Pain 03/18/19 21:15 03/25/19 21:14 Ondansetron HCl (Zofran) 4 mg Q6H PRN IVP Nausea & Vomiting 03/18/19 21:15 04/17/19 21:14 Polyethylene Glycol (Miralax) 17 gm HSPRN PRN ORAL Constipation 03/18/19 21:15 04/17/19 21:14 03/25/19 09:36 Risperidone (RisperDAL) 0.5 mg BID ORAL 03/24/19 09:00 04/23/19 08:59 03/25/19 09:37 Tamsulosin HCl (Flomax) 0.4 mg DAILY ORAL 03/19/19 09:00 04/18/19 08:59 03/25/19 09:37 Zolpidem Tartrate (Ambien) 5 mg HSPRN PRN ORAL Insomnia 03/18/19 21:15 03/25/19 21:14 Katarzyna Escobedo MD Mar 25, 2019 12:01
--- NOTE | 2019-03-25 13:54 | NUR ---
SS note [facility] ([facility]), Psychiatric intake (Jacive) explains they do not have a bed available for patient.
--- NOTE | 2019-03-25 14:34 | NUR ---
NURSE NOTES: PATIENT REMAINS STABLE. SEEN BY DR. DYER. ORDER RECEIVED TLO CONSENT PATIENT; AGREES TO HAVE SURGERY IN A.M. CONSENT OBTAINED, COPY GIVEN TO PATIENT.
--- NOTE | 2019-03-25 14:49 | Anethesia Preoperative Eval ---
Anesthesia Pre-op PMH/ROS General Date of Evaluation: Mar 25, 2019 Time of Evaluation: 14:44 Anesthesiologist: Annette ASA Score: ASA 3 Mallampati Score Class I : Soft palate, uvula, fauces, pillars visible Class II: Soft palate, uvula, fauces visible Class III: Soft palate, base of uvula visible Class IV: Only hard plate visible Mallampati Classification: Class II Surgeon: Chris Diagnosis: L injuinal hernia Surgical Procedure: L injuinal hernia repair Anesthesia History: none Family History: no anesthesia problems Allergies: Coded Allergies: No Known Allergies (Unverified , 03/18/19) Medications: see eMAR Patient NPO?: Yes Past Medical History Cardiovascular: Reports: HTN - Mild; Denies: CAD, MS, valve dz, arrhythmia, other Pulmonary: Denies: asthma, COPD, KVNG, other Gastrointestinal/Genitourinary: Reports: CRI - Elevated Cr.; Denies: GERD, ESRD, other Neurologic/Psychiatric: Reports: dementia - mild, other - Schizophrenia stable on meds; Denies: CVA, depression/anxiety, TIA Endocrine: Reports: hypothyroidism; Denies: DM, steroids, other HEENT: Denies: cataract (L), cataract (R), glaucoma, POARCH (L), POARCH (R), other Hematology/Immune: Denies: anemia, DVT, bleeding disorder, other Musculoskeletal/Integumentary: Reports: OA; Denies: RA, DJD, DDD, edema, other PMH Narrative: as above PSxH Narrative: see H&P Anesthesia Pre-op Phys. Exam Physician Exam Last Vital Signs Date Time Temp Pulse Resp B/P (MAP) Pulse Ox O2 Delivery O2 Flow Rate FiO2 03/25/19 11:37 98.5 59 18 107/72 (84) 95 03/25/19 09:00 Room Air Constitutional: NAD, other Neurologic: other - unable to obtaine Cardiovascular: RRR Respiratory: CTA Gastrointestinal: S/NT/ND Airway Exam Mallampati Score: Class II MO: full Neck: stiff ROM: limited Teeth: missing Dentures: no upper, no lower Anesthesia Pre-op A/P Labs Hematology Test 03/25/19 05:25 White Blood Count 6.9 K/UL (4.8-10.8) Red Blood Count 4.69 M/UL (4.70-6.10) L Hemoglobin 13.8 G/DL (14.2-18.0) L Hematocrit 41.0 % (42.0-52.0) L Mean Corpuscular Volume 87 FL (80-99) Mean Corpuscular Hemoglobin 29.5 PG (27.0-31.0) Mean Corpuscular Hemoglobin Concent 33.8 G/DL (32.0-36.0) Red Cell Distribution Width 12.2 % (11.6-14.8) Platelet Count 242 K/UL (150-450) Mean Platelet Volume 6.8 FL (6.5-10.1) Neutrophils (%) (Auto) 56.7 % (45.0-75.0) Lymphocytes (%) (Auto) 33.4 % (20.0-45.0) Monocytes (%) (Auto) 5.8 % (1.0-10.0) Eosinophils (%) (Auto) 3.2 % (0.0-3.0) H Basophils (%) (Auto) 1.0 % (0.0-2.0) Chemistry Test 03/25/19 05:25 Sodium Level 137 MMOL/L (136-145) Potassium Level 4.0 MMOL/L (3.5-5.1) Chloride Level 103 MMOL/L (98-107) Carbon Dioxide Level 26 MMOL/L (21-32) Anion Gap 8 mmol/L (5-15) Blood Urea Nitrogen 22 mg/dL (7-18) H Creatinine 1.2 MG/DL (0.55-1.30) Estimat Glomerular Filtration Rate mL/min (>60) Glucose Level 88 MG/DL (74-106) Calcium Level 9.1 MG/DL (8.5-10.1) Studies Pre-op Studies: EKG - SR, echo - EF 55-60% Risk Assessment & Plan Assessment: ASA 3 Plan: GA with Andrew Mcdonald MD Mar 25, 2019 14:49
--- NOTE | 2019-03-25 15:00 | General Progress Note ---
Assessment/Plan Problem List: (1) BPH (benign prostatic hyperplasia) ICD Codes: N40.0 - Benign prostatic hyperplasia without lower urinary tract symptoms SNOMED: 145358776 (2) Schizophrenia ICD Codes: F20.9 - Schizophrenia, unspecified SNOMED: 13108384 (3) Incarcerated left inguinal hernia ICD Codes: K40.30 - Unilateral inguinal hernia, with obstruction, without gangrene, not specified as recurrent SNOMED: 433376902 Status: stable, progressing Assessment/Plan: pt diet pain control sx f/u cbc bmp am psyc transfer Subjective Constitutional: Reports: weakness Allergies: Coded Allergies: No Known Allergies (Unverified , 03/18/19) All Systems: reviewed and negative except above Subjective sleepy calm in bed Objective Last 24 Hour Vital Signs Date Time Temp Pulse Resp B/P (MAP) Pulse Ox O2 Delivery O2 Flow Rate FiO2 03/25/19 11:37 98.5 59 18 107/72 (84) 95 03/25/19 09:00 Room Air 03/25/19 08:00 97.5 55 18 132/75 (94) 03/25/19 04:00 97.5 57 18 114/68 (83) 97 03/25/19 00:00 98.2 60 18 108/61 (77) 97 03/24/19 21:00 Room Air 03/24/19 20:00 98.7 66 18 103/64 (77) 95 03/24/19 16:00 98.7 54 20 106/55 (72) 95 91 Intake and Output 03/24/19 03/25/19 19:00 07:00 Intake Total 300 ml Balance 300 ml Intake Oral 300 ml # Voids 3 4 Laboratory Tests 03/25/19 05:25: White Blood Count 6.9, Red Blood Count 4.69L, Hemoglobin 13.8L, Hematocrit 41.0L , Mean Corpuscular Volume 87, Mean Corpuscular Hemoglobin 29.5, Mean Corpuscular Hemoglobin Concent 33.8, Red Cell Distribution Width 12.2, Platelet Count 242, Mean Platelet Volume 6.8, Neutrophils (%) (Auto) 56.7, Lymphocytes (% ) (Auto) 33.4, Monocytes (%) (Auto) 5.8, Eosinophils (%) (Auto) 3.2H, Basophils (%) (Auto) 1.0, Sodium Level 137, Potassium Level 4.0, Chloride Level 103, Carbon Dioxide Level 26, Anion Gap 8, Blood Urea Nitrogen 22H, Creatinine 1.2, Estimat Glomerular Filtration Rate , Glucose Level 88, Calcium Level 9.1 Height (Feet): 5 Height (Inches): 5.00 Weight (Pounds): 158 General Appearance: lethargic EENT: normal ENT inspection Neck: normal alignment Cardiovascular: normal peripheral pulses, normal rate, regular rhythm Respiratory/Chest: chest wall non-tender, lungs clear, normal breath sounds Abdomen: normal bowel sounds, non tender, soft Extremities: normal inspection Edema: no edema noted Arm (L), no edema noted Arm (R), no edema noted Leg (L), no edema noted Leg (R), no edema noted Pedal (L), no edema noted Pedal (R), no edema noted Generalized Neurologic: motor weakness Skin: normal pigmentation, warm/dry Mg Aranda DO Mar 25, 2019 15:00
[2019-03-25] MEDS: Piperacillin/Tazobactam 3.375 GM in NS 110 ML IVPB SCH ×2 (15:03→21:43)
--- NOTE | 2019-03-25 15:04 | NUR ---
Instructional DesignerAbsorber Operator SI: Abdominal pain, S/P Hernia Reduction BP:107/72 HR:59 RR:18 T:98.5 02 Sat:95% BUN:22 IS:Zosyn IV IVF Left Inguinal Hernia Repair w/Mesh NPO M/S Status
[2019-03-25 16:00] VITALS: BP 119/70
--- NOTE | 2019-03-25 18:22 | Cardiology Progress Note ---
Assessment/Plan Assessment/Plan 1. Moderate aortic regurgitation, asymptomatic, normal LV systolic function with LVEF at 55%. 2. Dyslipidemia. 3. Incarcerated inguinal hernia, clear for surgery. Subjective Subjective No cardiac events noted. Objective Last 24 Hour Vital Signs Date Time Temp Pulse Resp B/P (MAP) Pulse Ox O2 Delivery O2 Flow Rate FiO2 03/25/19 16:00 97.6 65 18 119/70 (86) 97 03/25/19 11:37 98.5 59 18 107/72 (84) 95 03/25/19 09:00 Room Air 03/25/19 08:00 97.5 55 18 132/75 (94) 03/25/19 04:00 97.5 57 18 114/68 (83) 97 03/25/19 00:00 98.2 60 18 108/61 (77) 97 03/24/19 21:00 Room Air 03/24/19 20:00 98.7 66 18 103/64 (77) 95 Intake and Output 03/24/19 03/25/19 19:00 07:00 Intake Total 300 ml Balance 300 ml Intake Oral 300 ml # Voids 3 4 2D Echo: LVEF 55%, Mild LAE, Mod AR, Mild MR, RVSP 14 mmhg Laboratory Tests Test 03/25/19 05:25 White Blood Count 6.9 K/UL (4.8-10.8) Red Blood Count 4.69 M/UL (4.70-6.10) L Hemoglobin 13.8 G/DL (14.2-18.0) L Hematocrit 41.0 % (42.0-52.0) L Mean Corpuscular Volume 87 FL (80-99) Mean Corpuscular Hemoglobin 29.5 PG (27.0-31.0) Mean Corpuscular Hemoglobin Concent 33.8 G/DL (32.0-36.0) Red Cell Distribution Width 12.2 % (11.6-14.8) Platelet Count 242 K/UL (150-450) Mean Platelet Volume 6.8 FL (6.5-10.1) Neutrophils (%) (Auto) 56.7 % (45.0-75.0) Lymphocytes (%) (Auto) 33.4 % (20.0-45.0) Monocytes (%) (Auto) 5.8 % (1.0-10.0) Eosinophils (%) (Auto) 3.2 % (0.0-3.0) H Basophils (%) (Auto) 1.0 % (0.0-2.0) Sodium Level 137 MMOL/L (136-145) Potassium Level 4.0 MMOL/L (3.5-5.1) Chloride Level 103 MMOL/L (98-107) Carbon Dioxide Level 26 MMOL/L (21-32) Anion Gap 8 mmol/L (5-15) Blood Urea Nitrogen 22 mg/dL (7-18) H Creatinine 1.2 MG/DL (0.55-1.30) Estimat Glomerular Filtration Rate mL/min (>60) Glucose Level 88 MG/DL (74-106) Calcium Level 9.1 MG/DL (8.5-10.1) Objective HEENT: Atraumatic and normocephalic. Anicteric. Pupils are equal, round, and reactive to light and accommodation. Extraocular muscles intact. NECK: JVP less than 5 cm. No carotid bruit. Carotid upstrokes 2+ bilaterally. CVS: Normal S1 and S2. There is a 2/6 holosystolic murmur at the apex. No gallops or rubs. LUNGS: Clear to auscultation bilaterally. ABDOMEN: Soft, nontender, and nondistended. No hepatosplenomegaly. Positive bowel sounds. EXTREMITIES: No evidence of edema, clubbing, or cyanosis. Gregor Flores MD Mar 25, 2019 18:22
--- NOTE | 2019-03-25 19:30 | NUR ---
NURSE NOTES: Receive a report from LIANA Acosta. Round is done. Pt is awake and alert with forgetfulness, [place] Islander and [place]ian speaking. Denies pain. Pt is aware of having surgery tomorrow morning. Leave call light within reach. Bed is lowest and locked with wearing yellow gown and socks for safety. Will continue to monitor.
--- NOTE | 2019-03-25 19:41 | NUR ---
HAND-OFF: Report given to VALENCIA ETIENNE RN.
[2019-03-25 20:00] VITALS: BP 119/70
[2019-03-26] VITALS (14 sets, daily range): BP systolic 116–161; BP diastolic 65–84
[2019-03-26] MEDS: Piperacillin/Tazobactam 3.375 GM in NS 110 ML IVPB SCH ×3 (05:17→21:03)
[2019-03-26 05:46] LABS: BASOPHILS % (AUTO) 1.4 % (0.0-2.0); HEMOGLOBIN 14.3 G/DL (14.2-18.0); MEAN CORPUSCULAR VOLUME 88 FL (80-99); MONOCYTES % (AUTO) 5.2 % (1.0-10.0); NEUTROPHILS % (AUTO) 57.3 % (45.0-75.0); PLATELET COUNT 247 K/UL (150-450); RED BLOOD COUNT 4.91 M/UL (4.70-6.10); RED CELL DISTRIBUTION WIDTH 12.3 % (11.6-14.8); WHITE BLOOD COUNT 7.3 K/UL (4.8-10.8)
--- NOTE | 2019-03-26 06:00 | NUR ---
NURSE NOTES: Pt is awake. No acute distress noted. Denies pain. On MNNPO for surgery today. Consent form is done. IV hydration and anti-biotics running on right forearm without infiltration. Will continue to monitor.
[2019-03-26 06:12] LABS: ALANINE AMINOTRANSFERASE 20 U/L (12-78); ALBUMIN 3.7 G/DL (3.4-5.0); ALBUMIN/GLOBULIN RATIO 0.8 (1.0-2.7); ALKALINE PHOSPHATASE 48 U/L (46-116); ANION GAP 7 mmol/L (5-15); ASPARTATE AMINO TRANSFERASE 17 U/L (15-37); BILIRUBIN,TOTAL 0.4 MG/DL (0.2-1.0); BLOOD UREA NITROGEN 18 mg/dL (7-18); CALCIUM 9.2 MG/DL (8.5-10.1); CARBON DIOXIDE 26 MMOL/L (21-32); CHLORIDE 104 MMOL/L (98-107); CREATININE 1.3 MG/DL (0.55-1.30); POTASSIUM 4.2 MMOL/L (3.5-5.1); SODIUM 137 MMOL/L (136-145)
[2019-03-26] MEDS ORDERED: Bacitracin 50000 Units Vial ONE (07:29)
[2019-03-26] MEDS ORDERED: Bupivacaine w/Epi 0.5% 30ml Vial INJ ONE (07:29)
--- NOTE | 2019-03-26 07:50 | NUR ---
HAND-OFF: Report given to LIANA Padilla. Receive a call from HEATHER Church RN, to verity infomation.
--- NOTE | 2019-03-26 08:00 | NUR ---
NURSE NOTES: Received report from Gho RN. Patient is awake and oriented, no acute distress noted, reporting no pain at this time. RFA IV intact, asymptomatic, running IVF and Zosyn per order. Fall precautions maintained. Patient updated on plan of care for the day, patient scheduled for surgery this morning, consent signed. Side rails upx3, bed low and locked, call light in reach, bed alarm armed. Will continue to monitor.
--- NOTE | 2019-03-26 08:45 | NUR ---
NURSE NOTE: Patient taken down for surgery by mica Marshall.
[2019-03-26] MEDS ORDERED: LR 1000ml 1,000 ML IVLG SCH (08:59)
[2019-03-26] MEDS ORDERED: Zemuron 50mg/5ml Inj IV ONE (09:00)
[2019-03-26] MEDS ORDERED: Sterile Water Irrig 1000ml IRRIG ONE (09:00)
[2019-03-26] MEDS ORDERED: Atropine Sulfate 0.4mg/ml inj IVP PRN (09:00)
[2019-03-26] MEDS ORDERED: Hydromorphone 0.5mg/0.5ml inj IVP PRN (09:00)
[2019-03-26] MEDS ORDERED: HYDROcodone/Acetamin 7.5/325 tab ORAL PRN (09:00)
[2019-03-26] MEDS ORDERED: LR 1000ml ONE (09:00)
[2019-03-26] MEDS ORDERED: oxyCODONE HCL/Acetaminophen 5/325mg ORAL PRN (09:00)
[2019-03-26] MEDS: Docusate 100mg tablet ORAL SCH ×3 (09:00→17:25)
[2019-03-26] MEDS ORDERED: DiphenhydrAMINE 50mg/ml Inj IVP PRN (09:00)
[2019-03-26] MEDS ORDERED: Acetaminophen (Non formulary) 100 ML IV ONE (09:00)
[2019-03-26] MEDS ORDERED: Meperidine 50mg/ml Inj(FOR RIGORS ONLY) IVP PRN (09:00)
[2019-03-26] MEDS ORDERED: Midazolam 2mg/2ml Inj IVP PRN (09:00)
[2019-03-26] MEDS ORDERED: LORazepam Inj 2mg/ml 1ml IV PRN (09:00)
[2019-03-26] MEDS ORDERED: Propofol 200mg/20ml IV ONE (09:00)
[2019-03-26] MEDS ORDERED: fentaNYL 100 mcg/2 mL IV PRN (09:00)
[2019-03-26] MEDS ORDERED: Ketorolac 30mg Inj IV PRN ×2 (09:00)
[2019-03-26] MEDS: Tamsulosin 0.4mg cap ORAL SCH (09:00)
[2019-03-26] MEDS ORDERED: Labetalol 5mg/ml 20ml vial IV PRN (09:00)
[2019-03-26] MEDS ORDERED: HYDROcodone/Acetamin 5/325 tab ORAL PRN (09:00)
--- NOTE | 2019-03-26 09:01 | Immediate Post-Op Evaluation ---
Immediate Post-Op Evalulation Immediate Post-Op Evalulation Procedure: L injuinal hernia repair Date of Evaluation: Mar 26, 2019 Time of Evaluation: 11:17 IV Fluids: 300 LR Blood Products: 0 Estimated Blood Loss: 20 Urinary Output: 0 Blood Pressure Systolic: 161 Blood Pressure Diastolic: 81 Pulse Rate: 82 Respiratory Rate: 16 O2 Sat by Pulse Oximetry: 100 Temperature (Fahrenheit): 97.1 Pain Score (1-10): 2 Nausea: No Vomiting: No Complications 0 Patient Status: awake, reacts, patent, none Hydration Status: adequate Dru Gram Ancef IV Given Within 1 Hr of Incision: Yes Time Given: 09:36 Darnell Chavarria MD Mar 26, 2019 09:01
[2019-03-26] MEDS ORDERED: Sodium Chloride 10ml vial INJ ONE (09:09)
[2019-03-26] MEDS ORDERED: Lidocaine 1% MPF 10mg/ml 5ml ONE (09:09)
[2019-03-26] MEDS ORDERED: Dexamethasone 4mg/ml vial ONE (09:09)
[2019-03-26] MEDS ORDERED: Midazolam 2mg/2ml Inj ONE (09:10)
[2019-03-26] MEDS ORDERED: NS Irrig 1000ml IRRIG ONE (10:00)
--- NOTE | 2019-03-26 10:16 | General Progress Note ---
Assessment/Plan Problem List: (1) BPH (benign prostatic hyperplasia) ICD Codes: N40.0 - Benign prostatic hyperplasia without lower urinary tract symptoms SNOMED: 758904056 (2) Schizophrenia ICD Codes: F20.9 - Schizophrenia, unspecified SNOMED: 54640814 (3) Incarcerated left inguinal hernia ICD Codes: K40.30 - Unilateral inguinal hernia, with obstruction, without gangrene, not specified as recurrent SNOMED: 577762943 Status: stable, progressing Assessment/Plan: pt diet pain control sx f/u cbc bmp am dc plan Subjective Constitutional: Reports: weakness Allergies: Coded Allergies: No Known Allergies (Unverified , 03/18/19) All Systems: reviewed and negative except above Subjective sleepy calm in bed Objective Last 24 Hour Vital Signs Date Time Temp Pulse Resp B/P (MAP) Pulse Ox O2 Delivery O2 Flow Rate FiO2 03/26/19 04:00 97.8 79 18 127/77 (94) 95 03/26/19 00:00 98.0 83 19 130/72 (91) 94 03/25/19 21:00 Room Air 03/25/19 20:00 97.6 77 18 119/70 (86) 94 03/25/19 16:00 97.6 65 18 119/70 (86) 97 03/25/19 11:37 98.5 59 18 107/72 (84) 95 Intake and Output 03/25/19 03/26/19 19:00 07:00 Intake Total 460 ml 1200 ml Balance 460 ml 1200 ml Intake Oral 360 ml IV Total 100 ml 1200 ml # Voids 5 4 # Bowel Movements 2 1 Laboratory Tests 03/26/19 05:15: White Blood Count 7.3, Red Blood Count 4.91, Hemoglobin 14.3, Hematocrit 43.0, Mean Corpuscular Volume 88, Mean Corpuscular Hemoglobin 29.2, Mean Corpuscular Hemoglobin Concent 33.4, Red Cell Distribution Width 12.3, Platelet Count 247, Mean Platelet Volume 7.0, Neutrophils (%) (Auto) 57.3, Lymphocytes (%) (Auto) 33.0, Monocytes (%) (Auto) 5.2, Eosinophils (%) (Auto) 3.0, Basophils (%) (Auto ) 1.4, Prothrombin Time 10.2, Prothromb Time International Ratio 1.0, Activated Partial Thromboplast Time 29, Sodium Level 137, Potassium Level 4.2, Chloride Level 104, Carbon Dioxide Level 26, Anion Gap 7, Blood Urea Nitrogen 18, Creatinine 1.3, Estimat Glomerular Filtration Rate , Glucose Level 87, Calcium Level 9.2, Total Bilirubin 0.4, Aspartate Amino Transf (AST/SGOT) 17, Alanine Aminotransferase (ALT/SGPT) 20, Alkaline Phosphatase 48, Total Protein 8.4H, Albumin 3.7, Globulin 4.7, Albumin/Globulin Ratio 0.8L Height (Feet): 5 Height (Inches): 5.00 Weight (Pounds): 162 General Appearance: lethargic EENT: normal ENT inspection Neck: normal alignment Cardiovascular: normal peripheral pulses, normal rate, regular rhythm Respiratory/Chest: chest wall non-tender, lungs clear, normal breath sounds Abdomen: normal bowel sounds, non tender, soft Extremities: normal inspection Edema: no edema noted Arm (L), no edema noted Arm (R), no edema noted Leg (L), no edema noted Leg (R), no edema noted Pedal (L), no edema noted Pedal (R), no edema noted Generalized Neurologic: motor weakness Skin: normal pigmentation, warm/dry Mg Aranda DO Mar 26, 2019 10:16
[2019-03-26] MEDS ORDERED: Glycopyrrolate 0.2mg/ml 1ml Vial ONE (10:17)
[2019-03-26] MEDS ORDERED: Neostigmine 1mg/ml 10ml Inj ONE (10:17)
--- NOTE | 2019-03-26 12:01 | NUR ---
NURSE NOTES: Patient arrived back to unit via bed, accompanied by RN. Report received from Jumana GAINES. Patient is arousable to voice, no acute distress noted, on 3L NC. Dressing to left groin clean and dry, IV intact. Per report from PACU nurse, Dr. Mac will be up to unit to enter post-op orders. Side rails upx3, bed low and locked, bed alarm armed, will continue to monitor.
--- NOTE | 2019-03-26 13:40 | Pulmonology Progress Note ---
Assessment/Plan Problems: (1) Incarcerated left inguinal hernia (2) Depression (3) BPH (benign prostatic hyperplasia) (4) Schizophrenia Assessment/Plan tolerated the hernia surgery very well. doing better check electrolytes symptomatic treatment dvt prophylaxis. dvt prophylaxis. Subjective ROS Limited/Unobtainable: No Interval Events: tolerated surgery very well Allergies: Coded Allergies: No Known Allergies (Unverified , 03/18/19) Objective Last 24 Hour Vital Signs Date Time Temp Pulse Resp B/P (MAP) Pulse Ox O2 Delivery O2 Flow Rate FiO2 03/26/19 12:05 97.9 03/26/19 11:45 97.2 57 19 117/69 100 Nasal Cannula 3 03/26/19 11:35 97.2 59 20 116/70 100 Nasal Cannula 3 03/26/19 11:26 58 20 121/66 100 Simple Mask 6 03/26/19 11:16 61 20 148/81 100 Simple Mask 6 03/26/19 11:11 69 24 145/80 100 Simple Mask 6 03/26/19 11:06 97.1 81 24 161/81 100 Simple Mask 6 03/26/19 11:03 82 16 100 03/26/19 08:30 Room Air 03/26/19 04:00 97.8 79 18 127/77 (94) 95 03/26/19 00:00 98.0 83 19 130/72 (91) 94 03/25/19 21:00 Room Air 03/25/19 20:00 97.6 77 18 119/70 (86) 94 03/25/19 16:00 97.6 65 18 119/70 (86) 97 Intake and Output 03/25/19 03/26/19 19:00 07:00 Intake Total 460 ml 1200 ml Balance 460 ml 1200 ml Intake Oral 360 ml IV Total 100 ml 1200 ml # Voids 5 4 # Bowel Movements 2 1 General Appearance: WD/WN HEENT: normocephalic, atraumatic Respiratory/Chest: chest wall non-tender, lungs clear Cardiovascular: normal peripheral pulses, normal rate Abdomen: normal bowel sounds, no organomegaly Genitourinary: normal external genitalia Extremities: no clubbing Neurologic/Psychiatric: 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 normal, no motor/sensory deficits Laboratory Tests 03/26/19 05:15: White Blood Count 7.3, Red Blood Count 4.91, Hemoglobin 14.3, Hematocrit 43.0, Mean Corpuscular Volume 88, Mean Corpuscular Hemoglobin 29.2, Mean Corpuscular Hemoglobin Concent 33.4, Red Cell Distribution Width 12.3, Platelet Count 247, Mean Platelet Volume 7.0, Neutrophils (%) (Auto) 57.3, Lymphocytes (%) (Auto) 33.0, Monocytes (%) (Auto) 5.2, Eosinophils (%) (Auto) 3.0, Basophils (%) (Auto ) 1.4, Prothrombin Time 10.2, Prothromb Time International Ratio 1.0, Activated Partial Thromboplast Time 29, Sodium Level 137, Potassium Level 4.2, Chloride Level 104, Carbon Dioxide Level 26, Anion Gap 7, Blood Urea Nitrogen 18, Creatinine 1.3, Estimat Glomerular Filtration Rate , Glucose Level 87, Calcium Level 9.2, Total Bilirubin 0.4, Aspartate Amino Transf (AST/SGOT) 17, Alanine Aminotransferase (ALT/SGPT) 20, Alkaline Phosphatase 48, Total Protein 8.4H, Albumin 3.7, Globulin 4.7, Albumin/Globulin Ratio 0.8L Current Medications Medications (Trade) Dose Ordered Sig/Pati Route PRN Reason Start Time Stop Time Status Last Admin Dose Admin Acetaminophen (Tylenol) 650 mg Q4H PRN ORAL fever 03/18/19 21:15 04/17/19 21:14 Dextrose (Dextrose 50%) 25 ml Q30M PRN IV Hypoglycemia 03/18/19 21:15 04/17/19 21:07 Dextrose (Dextrose 50%) 50 ml Q30M PRN IV hypoglycemia 03/18/19 21:15 04/17/19 21:14 Docusate Sodium (Colace) 100 mg TID ORAL 03/20/19 18:00 04/19/19 17:59 03/25/19 17:40 Finasteride (Proscar) 5 mg DAILY ORAL 03/19/19 09:00 04/18/19 08:59 03/25/19 09:37 Iopamidol (Isovue-300 100ml) 100 ml NOW PRN INJ Radiology Procedure 03/18/19 18:00 Magnesium Hydroxide (Mom) 30 ml DAILYPRN PRN ORAL Constipation 03/21/19 15:00 04/20/19 14:59 03/22/19 11:22 Mirtazapine (Remeron) 7.5 mg BEDTIME ORAL 03/19/19 21:00 04/18/19 20:59 03/25/19 21:43 Ondansetron HCl (Zofran) 4 mg Q6H PRN IVP Nausea & Vomiting 03/18/19 21:15 04/17/19 21:14 Piperacillin Sod/ Tazobactam Sod 3.375 gm/Sodium Chloride 110 ml @ 27.5 mls/hr EVERY 8 HOURS IVPB 03/25/19 14:00 03/30/19 13:59 03/26/19 05:17 Polyethylene Glycol (Miralax) 17 gm HSPRN PRN ORAL Constipation 03/18/19 21:15 04/17/19 21:14 03/25/19 09:36 Risperidone (RisperDAL) 0.5 mg BID ORAL 03/24/19 09:00 04/23/19 08:59 03/25/19 17:39 Sodium Chloride 1,000 ml @ 100 mls/hr Q10H IV 03/25/19 12:45 04/24/19 12:44 03/25/19 21:43 Tamsulosin HCl (Flomax) 0.4 mg DAILY ORAL 03/19/19 09:00 04/18/19 08:59 03/25/19 09:37 Katarzyna Escobedo MD Mar 26, 2019 13:40
--- NOTE | 2019-03-26 15:30 | Progress Note ---
DATE: 03/26/2019 SUBJECTIVE: This is an 79-year-old male with incarcerated left inguinal hernia with extreme mood lability and agitation. That is why, he requires daily psychiatric consultation. DIAGNOSIS: Major depressive disorder, severe, recurrent with psychotic features. PLAN: Continue treatment with Namenda to prevent any further decline in his cognition. We will continue to be follow to prevent any further decline in his cognition. 20 minutes of cognitive behavioral therapy provided to help him identify his automatic negative thoughts and help him convert those negative thoughts to more positive thoughts to reduce depression, anxiety, mood lability. Chart reviewed. Discussed with staff. Seen and assessed in his room. Valentino Bryan M.D. DR: JUDSON JOB#: [id number] CC:
--- NOTE | 2019-03-26 16:15 | NUR ---
NURSE NOTES: Informed Dr. Mac that patient is stating he is hungry and would like to eat. Received order from MD to start patient on clear liquid diet and advance as tolerated. Order entered, will carry out.
--- NOTE | 2019-03-26 17:31 | Brief Operative Note ---
Immediate Post Operative Note Operative Note Pre-op Diagnosis: large left incarcerated inguinal hernia Procedure: left inguinal hernia repair with mesh Post-op Diagnosis: large recurrent left inguinal hernia with incarceration but no obstruction or strangulation Surgeon: jono Anesthesiologist: lalo Anesthesia: general, local Specimen: yes Complications: none Condition: stable Fluids: see records Estimated Blood Loss: minimal Drains: none Implant(s) used?: Yes Aroldo Mac Mar 26, 2019 17:31
--- NOTE | 2019-03-26 19:30 | NUR ---
HAND-OFF: Report given to Ashtyn GAINES. Patient is in stable condition.
--- NOTE | 2019-03-26 20:00 | NUR ---
NURSE NOTES: Received patient awake sitting on side of bed, changed patient's gown and linen. Patient slightly unsteady on front wheel walker but insists he can "do it himself". IV access asymptomatic, dressing dry and intact. Yellow gown and yellow socks on. Fall and safety precautions taken.
--- NOTE | 2019-03-26 20:45 | Operative Note - Dictated ---
DATE OF OPERATION: 03/26/2019 PREOPERATIVE DIAGNOSES: Large incarcerated left inguinal hernia. POSTOPERATIVE DIAGNOSIS: Large recurrent left inguinal hernia with incarceration, but no obstruction or strangulation. SURGEON: Aroldo Mac M.D. LIVESTOCK COUNTER: None. ANESTHESIOLOGIST: Darnell Chavarria M.D. ANESTHESIA: General GETA plus local. ESTIMATED BLOOD LOSS: Minimal. IV FLUIDS: Please see anesthesia records. COMPLICATIONS: None. DRAINS: None. SPECIMENS: 1. Prior hernia mesh. 2. Hernia sac. DRAINS: None. IMPLANTS: 1. Bard plug and patch. 2. Large size mesh and plug. WOUND CLASSIFICATION: Class 1. INDICATIONS FOR PROCEDURE: This is an 79-year-old male who presented to [facility] Emergency Department complaining of worsening left groin pain and mass which was identified by a staff at his facility. On evaluation in the emergency room, the patient was identified to have incarcerated large left inguinal hernia, which initially I was able to reduce, but given the unknown time of incarceration, the patient was admitted for care management and evaluation. Given the size of the hernia, the need for reduction as well as continuation into the scrotal sac, surgery was indicated and recommended. Initially, the patient was reluctant to have surgery because he believed he did not need surgery but during admission continued to have recurrent episodes of incarceration which he could not reduce and staff cannot reduce requiring me to come by and reduce. A few days later, as patient was being prepared for discharge, he had another episode at which time I reduced it and the patient told me that he understood it now the recommendation and would like to proceed with surgery and is concerned given how often this is happening. Given these findings, surgery was indicated and recommended and the patient was scheduled to be taken to the operating room for repair given the risks of potential incarceration and again given how frequent incarcerated as well as the size and the location and the aspect of the hernia. Risks, benefits, alternatives were discussed with the patient in detail who expressed understanding and consented to surgery. OPERATIVE NOTE: The patient was taken to the operating room and placed on the operating room table in supine position with bilateral arms out. All bony prominences were well padded. SCDs were placed. Preoperative time-out taken in identifying the patient, procedure, operative staff, and surgical staff. General anesthesia was induced and the patient was intubated. The abdomen and groin was clipped, prepped, and draped in standard surgical fashion. The site was marked prior to entering the operating room. Large left inguinal hernia was identified, and once the groin area was clipped and prepped, it was noted to have some scar tissue. Of note, I had asked the patient prior if had hernia that he noted out or any prior surgeries and the patient declined and did not state any previous hernia surgery and on examination given the patient's habitus with significant amount of hair, no excessive scarring, it was not identified on examination prior. At this time, appropriate anatomy was identified and a skin incision was made. Skin incision was taken down through the skin, subcutaneous tissue, at which time, a significant amount of scar tissue was noted and it was clearly evident that the patient had a hernia repair in the past. The anatomy was significantly distorted. No clear external oblique aponeurosis was identifiable, but the scar tissue was noted and the area of scar tissue did identify to have a hernia mesh that was displaced laterally and superior. The portions of the mesh that could be palpated were safely dissected out and mesh was sent to pathology for review. Following this, soft area with the hernia sac was identified and the hernia sac was clearly noted. The hernia sac was circumferentially dissected out and the cord structures were noted to be lateral and inferior to it. As the hernia sac was dissected out, given the size of it and the contents within, a decision made to enter the hernia sac to ensure reduction prior to any further manipulation in case any bowel was remaining and the distorted anatomy and scar tissue made it difficult for clear anatomic planes. At this time, the hernia sac was gently entered with Metzenbaum scissors and inside the hernia sac, there was some portion of the sigmoid, which was reduced back into the abdominal cavity. The hernia sac was evaluated, noted to be very large. Hernia sac began at the indirect inguinal wall on the left side and extended through into the scrotum. The true sac actually entered into the scrotum fairly deep. The sac was circumferentially dissected out and once that was completed was ligated high with a 2-0 Prolene suture. The sac was then sent to pathology for review. Given the distorted anatomy, no true nerve could be identified throughout the procedure. Following this, the groin region was irrigated and cleansed. Once hernia sac was excised in whole, remnant space was identified into the scrotum around the testicle. The testis was noted to be viable and otherwise normal. No significant hydrocele was noted. At this time, decision was made to repair the defect and the floor. The floor anatomy could not be identified clearly as for scar tissue as well. The wound was irrigated. Hemostasis was identified and at this time, a large Bard mesh plug was brought into the operative field and sutured to the remnant of the hernia sac and using a 2-0 Prolene suture and placed into the large left indirect inguinal defect above the peritoneum and then sutured laterally using 2-0 Prolene interrupted sutures to the scar tissue identified as potentially being the external ring aponeurosis and the portions of the prior mesh that could not be safely excised. Following this, the adequate repair of the inguinal canal was noted. A Bard prefix mesh was then placed and sutured to the pubic tubercle and with interrupted sutures placed circumferentially around the areas of what could be identified to be thickened prior healing fascia and prior mesh. Satisfactory repair was identified and the remainder of the external ring fascia that could be noted were reapproximated. Wound was cleansed. Local anesthetic was infiltrated and Chandra's fascia was then reapproximated using interrupted 3-0 Vicryl sutures followed by closure of the skin incision using 4-0 Monocryl subcuticular interrupted sutures. The patient tolerated the procedure well and was extubated and taken to postanesthetic care unit in stable condition. Of note, both the scrotal sac was checked and identified and both testicles were noted to be in appropriate anatomic positioning. Aroldo Mac M.D. DR: Jose JOB#: [id number] CC: BRANDIE
[2019-03-27] VITALS: BP 137/82
[2019-03-27 04:06] VITALS: BP 127/80
[2019-03-27] MEDS: Piperacillin/Tazobactam 3.375 GM in NS 110 ML IVPB SCH ×3 (05:15→21:36)
[2019-03-27 06:04] LABS: BASOPHILS % (AUTO) 0.4 % (0.0-2.0); EOSINOPHILS % (AUTO) 0.4 % (0.0-3.0); HEMATOCRIT 41.5 % (42.0-52.0); HEMOGLOBIN 14.1 G/DL (14.2-18.0); LYMPHOCYTES % (AUTO) 12.6 % (20.0-45.0); MEAN CORPUSCULAR VOLUME 87 FL (80-99); MONOCYTES % (AUTO) 7.1 % (1.0-10.0); NEUTROPHILS % (AUTO) 79.6 % (45.0-75.0); PLATELET COUNT 246 K/UL (150-450); RED BLOOD COUNT 4.75 M/UL (4.70-6.10); RED CELL DISTRIBUTION WIDTH 12.4 % (11.6-14.8); WHITE BLOOD COUNT 11.9 K/UL (4.8-10.8)
[2019-03-27 06:22] LABS: ANION GAP 9 mmol/L (5-15); BLOOD UREA NITROGEN 18 mg/dL (7-18); CALCIUM 9.3 MG/DL (8.5-10.1); CARBON DIOXIDE 24 MMOL/L (21-32); CHLORIDE 105 MMOL/L (98-107); CREATININE 1.3 MG/DL (0.55-1.30); POTASSIUM 4.3 MMOL/L (3.5-5.1); SODIUM 138 MMOL/L (136-145)
--- NOTE | 2019-03-27 07:29 | NUR ---
HAND-OFF: Report given to LIANA Conley.
[2019-03-27 08:00] VITALS: BP 142/75
--- NOTE | 2019-03-27 08:16 | NUR ---
NURSE NOTES: Pt requires supervision for safety. Has use of walker. Call light is in reach, bed is in safe position. Current plan of care will be followed
[2019-03-27] MEDS: Tamsulosin 0.4mg cap ORAL SCH (08:49)
[2019-03-27] MEDS: Docusate 100mg tablet ORAL SCH ×3 (08:49→18:06)
[2019-03-27] MEDS: HYDROcodone/Acetamin 5/325 tab ORAL PRN ×2 (08:57→14:26)
--- NOTE | 2019-03-27 11:17 | 48 Hour Post Anesthesia Eval ---
Post Anesthesia Evaluation Procedure: L injuinal hernia repair Date of Evaluation: Mar 27, 2019 Airway: patent Nausea: No Vomiting: No Hydration Status: adequate Cardiopulmonary Status: at baseline Mental Status/LOC: patient returned to baseline Post-Anesthesia Complications: 0 Follow-up care needed: N/A - further care as per primary te Lashae Sun MD Mar 27, 2019 11:17
--- NOTE | 2019-03-27 11:55 | Pulmonology Progress Note ---
Assessment/Plan Problems: (1) Incarcerated left inguinal hernia (2) Depression (3) BPH (benign prostatic hyperplasia) (4) Schizophrenia Assessment/Plan tolerated the hernia surgery very well. doing better check electrolytes symptomatic treatment dvt prophylaxis. dvt prophylaxis. Subjective ROS Limited/Unobtainable: No Constitutional: Reports: no symptoms HEENT: Repors: no symptoms Respiratory: Reports: no symptoms Allergies: Coded Allergies: No Known Allergies (Unverified , 03/18/19) Objective Last 24 Hour Vital Signs Date Time Temp Pulse Resp B/P (MAP) Pulse Ox O2 Delivery O2 Flow Rate FiO2 03/27/19 09:00 Room Air 03/27/19 08:00 98.5 62 18 142/75 (97) 03/27/19 04:06 97.3 70 18 127/80 (96) 96 03/27/19 00:00 97.0 67 18 137/82 (100) 95 03/26/19 22:54 Room Air 03/26/19 20:00 97.7 71 19 147/84 (105) 95 03/26/19 15:00 97.3 71 18 136/80 (98) 97 03/26/19 14:00 98.4 74 18 136/79 (98) 97 03/26/19 13:00 98.4 58 18 122/72 (89) 94 03/26/19 12:30 98.0 66 16 121/65 (83) 94 03/26/19 12:05 97.9 03/26/19 12:00 97.7 65 16 121/65 (83) 93 Intake and Output 03/26/19 03/27/19 19:00 07:00 Intake Total 1510.02 ml 250 ml Output Total 20 ml Balance 1490.02 ml 250 ml Intake Oral 800 ml 250 ml IV Total 710.02 ml Estimated Blood Loss 20 ml # Voids 3 3 General Appearance: WD/WN HEENT: normocephalic, atraumatic Respiratory/Chest: chest wall non-tender Cardiovascular: normal peripheral pulses, normal rate, regular rhythm Abdomen: normal bowel sounds, soft, non tender Genitourinary: normal external genitalia Extremities: no clubbing Skin: no rash Neurologic/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: 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 Laboratory Tests 03/27/19 05:40: White Blood Count 11.9#H, Red Blood Count 4.75, Hemoglobin 14.1L, Hematocrit 41.5L, Mean Corpuscular Volume 87, Mean Corpuscular Hemoglobin 29.7, Mean Corpuscular Hemoglobin Concent 34.0, Red Cell Distribution Width 12.4, Platelet Count 246, Mean Platelet Volume 7.0, Neutrophils (%) (Auto) 79.6H, Lymphocytes ( %) (Auto) 12.6L, Monocytes (%) (Auto) 7.1, Eosinophils (%) (Auto) 0.4, Basophils (%) (Auto) 0.4, Sodium Level 138, Potassium Level 4.3, Chloride Level 105, Carbon Dioxide Level 24, Anion Gap 9, Blood Urea Nitrogen 18, Creatinine 1.3, Estimat Glomerular Filtration Rate , Glucose Level 106, Calcium Level 9.3 Current Medications Medications (Trade) Dose Ordered Sig/Pati Route PRN Reason Start Time Stop Time Status Last Admin Dose Admin Acetaminophen (Tylenol) 650 mg Q4H PRN ORAL fever 03/18/19 21:15 04/17/19 21:14 Acetaminophen/ Hydrocodone Bitart (Isabel 5/325) 1 tab Q4H PRN ORAL Moderate Pain (Pain Scale 4-6) 03/26/19 17:45 04/02/19 17:44 03/27/19 08:57 Dextrose (Dextrose 50%) 25 ml Q30M PRN IV Hypoglycemia 03/18/19 21:15 04/17/19 21:07 Dextrose (Dextrose 50%) 50 ml Q30M PRN IV hypoglycemia 03/18/19 21:15 04/17/19 21:14 Docusate Sodium (Colace) 100 mg TID ORAL 03/20/19 18:00 04/19/19 17:59 03/27/19 08:49 Finasteride (Proscar) 5 mg DAILY ORAL 03/19/19 09:00 04/18/19 08:59 03/27/19 08:49 Iopamidol (Isovue-300 100ml) 100 ml NOW PRN INJ Radiology Procedure 03/18/19 18:00 Magnesium Hydroxide (Mom) 30 ml DAILYPRN PRN ORAL Constipation 03/21/19 15:00 04/20/19 14:59 03/22/19 11:22 Mirtazapine (Remeron) 7.5 mg BEDTIME ORAL 03/19/19 21:00 04/18/19 20:59 03/26/19 20:46 Ondansetron HCl (Zofran) 4 mg Q6H PRN IVP Nausea & Vomiting 03/18/19 21:15 04/17/19 21:14 Piperacillin Sod/ Tazobactam Sod 3.375 gm/Sodium Chloride 110 ml @ 27.5 mls/hr EVERY 8 HOURS IVPB 03/25/19 14:00 03/30/19 13:59 03/27/19 05:15 Polyethylene Glycol (Miralax) 17 gm HSPRN PRN ORAL Constipation 03/18/19 21:15 04/17/19 21:14 03/25/19 09:36 Risperidone (RisperDAL) 0.5 mg BID ORAL 03/24/19 09:00 04/23/19 08:59 03/27/19 08:49 Tamsulosin HCl (Flomax) 0.4 mg DAILY ORAL 03/19/19 09:00 04/18/19 08:59 03/27/19 08:49 Katarzyna Escobedo MD Mar 27, 2019 11:55
[2019-03-27 12:00] VITALS: BP 110/55
[2019-03-27] MEDS ORDERED: NS 500ML ONE (12:26)
--- NOTE | 2019-03-27 14:30 | General Progress Note ---
Progress Note Progress Note POD #1 doing well minimal pain when laying pain with palpation incisional as anticipated states he is doing well left inguinal exam stable. wound d/c/i. mild edema and no signs of infection. scrotum has not filled with fluid fortunately tolerating diet passing flatus I discussed surgical history with patient given operative findings. He was VERY clear with me that he has only had an appendectomy in the past 50+ years ago but has never had a hernia repair. I told him of operative findings and he was clear that he did not and would remember. i told him i noted mesh and sutures but he is still insistent no prior surgery okay for d/c from surgical standpoint diet as tolerated f/u in 2 weeks for wound check thank you Aroldo Mac Mar 27, 2019 14:30
[2019-03-27 16:00] VITALS: BP 112/58
--- NOTE | 2019-03-27 16:56 | NUR ---
NURSE NOTES: Pt noted talking to himself , slightly irritable pain level assessed, pt initially denied pain yet frowning when repositioning, . [place] given, x two. Required supervision for walking to restroom with iv line and connection still in wall. Encouraged to use call light. Able to verbalize needs , but directions require to be reinforced
--- NOTE | 2019-03-27 17:00 | Progress Note ---
DATE: 03/27/2019 SUBJECTIVE: This is an 79-year-old male with a left inguinal hernia, but he has altered mental status and confusion. DIAGNOSIS: Major depressive disorder, mild, recurrent with psychotic features. PLAN: Continue titrating up on his medications to prevent any further decline in his cognition. Provide him with 20 minutes of cognitive behavioral therapy to help him identify his automatic negative thoughts and help him convert those negative thoughts to more positive thoughts to reduce depression, anxiety, and mood lability. Chart reviewed. Discussed with staff. Seen and assessed in his room. Valentino Bryan M.D. DR: MAY JOB#: [id number] CC:
--- NOTE | 2019-03-27 18:03 | Pre-Procedure Note/Attestation ---
Pre-Procedure Note/Attestation Complete Prior to Procedure Planned Procedure: left Procedure Narrative: left inguinal hernia repair with mesh Indications for Procedure Pre-Operative Diagnosis: large left incarcerated inguinal hernia Attestation I attest that I discussed the nature of the procedure; its benefits; risks and complications; and alternatives (and the risks and benefits of such alternatives ), prior to the procedure, with the patient (or the patient's legal auto claim representative). I attest that, if there was a reasonable possibility of needing a blood transfusion, the patient (or the patient's legal auto claim representative) was given the [facility] standardized written summary, pursuant to the Ulysses Grambling Blood Safety Act ([place] Health and Safety Code # 1645, as amended). I attest that I re-evaluated the patient just prior to the surgery and that there has been no change in the patient's H&P, except as documented below: Aroldo Mac Mar 27, 2019 18:03
--- NOTE | 2019-03-27 18:16 | Cardiology Progress Note ---
Assessment/Plan Assessment/Plan 1. Moderate aortic regurgitation, asymptomatic, normal LV systolic function with LVEF at 55%. 2. Dyslipidemia. 3. Left incarcerated inguinal hernia, s/p repair with no perioperative cardiac events, postop day #1. Subjective Subjective No cardiac events noted. s/p left hernia repair, POD # 1 Objective Last 24 Hour Vital Signs Date Time Temp Pulse Resp B/P (MAP) Pulse Ox O2 Delivery O2 Flow Rate FiO2 03/27/19 16:00 98.0 64 18 112/58 (76) 03/27/19 12:00 98.5 62 18 110/55 (73) 03/27/19 09:00 Room Air 03/27/19 08:00 98.5 62 18 142/75 (97) 03/27/19 04:06 97.3 70 18 127/80 (96) 96 03/27/19 00:00 97.0 67 18 137/82 (100) 95 03/26/19 22:54 Room Air 03/26/19 20:00 97.7 71 19 147/84 (105) 95 Intake and Output 03/26/19 03/27/19 19:00 07:00 Intake Total 1510.02 ml 250 ml Output Total 20 ml Balance 1490.02 ml 250 ml Intake Oral 800 ml 250 ml IV Total 710.02 ml Estimated Blood Loss 20 ml # Voids 3 3 2D Echo: LVEF 55%, Mild LAE, Mod AR, Mild MR, RVSP 14 mmhg Laboratory Tests Test 03/27/19 05:40 White Blood Count 11.9 K/UL (4.8-10.8) #H Red Blood Count 4.75 M/UL (4.70-6.10) Hemoglobin 14.1 G/DL (14.2-18.0) L Hematocrit 41.5 % (42.0-52.0) L Mean Corpuscular Volume 87 FL (80-99) Mean Corpuscular Hemoglobin 29.7 PG (27.0-31.0) Mean Corpuscular Hemoglobin Concent 34.0 G/DL (32.0-36.0) Red Cell Distribution Width 12.4 % (11.6-14.8) Platelet Count 246 K/UL (150-450) Mean Platelet Volume 7.0 FL (6.5-10.1) Neutrophils (%) (Auto) 79.6 % (45.0-75.0) H Lymphocytes (%) (Auto) 12.6 % (20.0-45.0) L Monocytes (%) (Auto) 7.1 % (1.0-10.0) Eosinophils (%) (Auto) 0.4 % (0.0-3.0) Basophils (%) (Auto) 0.4 % (0.0-2.0) Sodium Level 138 MMOL/L (136-145) Potassium Level 4.3 MMOL/L (3.5-5.1) Chloride Level 105 MMOL/L (98-107) Carbon Dioxide Level 24 MMOL/L (21-32) Anion Gap 9 mmol/L (5-15) Blood Urea Nitrogen 18 mg/dL (7-18) Creatinine 1.3 MG/DL (0.55-1.30) Estimat Glomerular Filtration Rate mL/min (>60) Glucose Level 106 MG/DL (74-106) Calcium Level 9.3 MG/DL (8.5-10.1) Objective HEENT: Atraumatic and normocephalic. Anicteric. Pupils are equal, round, and reactive to light and accommodation. Extraocular muscles intact. NECK: JVP less than 5 cm. No carotid bruit. Carotid upstrokes 2+ bilaterally. CVS: Normal S1 and S2. There is a 2/6 holosystolic murmur at the apex. No gallops or rubs. LUNGS: Clear to auscultation bilaterally. ABDOMEN: Soft, nontender, and nondistended. No hepatosplenomegaly. Positive bowel sounds. EXTREMITIES: No evidence of edema, clubbing, or cyanosis. Gregor Flores MD Mar 27, 2019 18:16
--- NOTE | 2019-03-27 19:25 | NUR ---
NURSE NOTES: Report taken from LIANA Conley. Patient is asleep in bed, responsive to name and light touch. Having minor complaints of pain, 4/10 through surgical area. No skin issues, patient can use bathroom but is incontinent as well. IV site c/d/i and patent, no fluids running currently, see eMAR. Surgical site c/d/i, change as needed. Bed in lowest position, call light within reach.
--- NOTE | 2019-03-27 19:47 | NUR ---
HAND-OFF: Report given to Isaías GAINES.
[2019-03-27 20:00] VITALS: BP 114/71
--- NOTE | 2019-03-27 22:34 | General Progress Note ---
Assessment/Plan Problem List: (1) Incarcerated left inguinal hernia ICD Codes: K40.30 - Unilateral inguinal hernia, with obstruction, without gangrene, not specified as recurrent SNOMED: 375288314 (2) Schizophrenia ICD Codes: F20.9 - Schizophrenia, unspecified SNOMED: 29002303 (3) BPH (benign prostatic hyperplasia) ICD Codes: N40.0 - Benign prostatic hyperplasia without lower urinary tract symptoms SNOMED: 053127848 (4) Depression ICD Codes: F32.9 - Major depressive disorder, single episode, unspecified SNOMED: 25529739 Status: stable, progressing Assessment/Plan: afebrile nac hernia abdominal pain bph psychosis reviewed chart and labs Subjective ROS Limited/Unobtainable: Yes Allergies: Coded Allergies: No Known Allergies (Unverified , 03/18/19) Objective Last 24 Hour Vital Signs Date Time Temp Pulse Resp B/P (MAP) Pulse Ox O2 Delivery O2 Flow Rate FiO2 03/27/19 16:00 98.0 64 18 112/58 (76) 03/27/19 12:00 98.5 62 18 110/55 (73) 03/27/19 09:00 Room Air 03/27/19 08:00 98.5 62 18 142/75 (97) 03/27/19 04:06 97.3 70 18 127/80 (96) 96 03/27/19 00:00 97.0 67 18 137/82 (100) 95 03/26/19 22:54 Room Air Intake and Output 03/26/19 03/27/19 19:00 07:00 Intake Total 1510.02 ml 250 ml Output Total 20 ml Balance 1490.02 ml 250 ml Intake Oral 800 ml 250 ml IV Total 710.02 ml Estimated Blood Loss 20 ml # Voids 3 3 Laboratory Tests 03/27/19 05:40: White Blood Count 11.9#H, Red Blood Count 4.75, Hemoglobin 14.1L, Hematocrit 41.5L, Mean Corpuscular Volume 87, Mean Corpuscular Hemoglobin 29.7, Mean Corpuscular Hemoglobin Concent 34.0, Red Cell Distribution Width 12.4, Platelet Count 246, Mean Platelet Volume 7.0, Neutrophils (%) (Auto) 79.6H, Lymphocytes ( %) (Auto) 12.6L, Monocytes (%) (Auto) 7.1, Eosinophils (%) (Auto) 0.4, Basophils (%) (Auto) 0.4, Sodium Level 138, Potassium Level 4.3, Chloride Level 105, Carbon Dioxide Level 24, Anion Gap 9, Blood Urea Nitrogen 18, Creatinine 1.3, Estimat Glomerular Filtration Rate , Glucose Level 106, Calcium Level 9.3 Height (Feet): 5 Height (Inches): 5.00 Weight (Pounds): 162 Cardiovascular: normal peripheral pulses Abdomen: tender Mana Church MD Mar 27, 2019 22:34
[2019-03-28] VITALS: BP 151/92
[2019-03-28 04:00] VITALS: BP 163/91
[2019-03-28] MEDS: Piperacillin/Tazobactam 3.375 GM in NS 110 ML IVPB SCH ×2 (05:28→14:08)
--- NOTE | 2019-03-28 07:33 | NUR ---
HAND-OFF: Report given to LIANA Padilla. Patient is asleep and stable.
--- NOTE | 2019-03-28 07:45 | NUR ---
NURSE NOTES: Received report from Gilberto GAINES. Patient is asleep during rounds, no acute distress noted, RR even and unlabored. IV running Zosyn per order, fall precautions maintained. Side rails upx3, bed low and locked, bed alarm armed. Will continue to monitor.
[2019-03-28 08:00] VITALS: BP 127/62
--- NOTE | 2019-03-28 08:15 | Pulmonology Progress Note ---
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 Echo with pEF 55-60% , moderate aortic regurgitation , asymptomatic s/p surgery 03/26; no evidence of strangulation or obstruction pain management IS at the bedside, encourage to use q 1 ht x 10 while in the bed CXR today on empiric abx supportive care bowel regimen PT eval and treatment continue Flomax and Proscar psych medication optimized as per psychiatrist DVT prophylaxis with SCD case discussed and evaluated by supervising physician Subjective Allergies: Coded Allergies: No Known Allergies (Unverified , 03/18/19) Subjective low grade fever last night, this am leukocytosis Objective Last 24 Hour Vital Signs Date Time Temp Pulse Resp B/P (MAP) Pulse Ox O2 Delivery O2 Flow Rate FiO2 03/28/19 04:00 98.7 86 17 163/91 (115) 96 03/28/19 00:00 99.2 87 17 151/92 (111) 96 03/27/19 21:00 Room Air 03/27/19 20:00 99.7 92 18 114/71 (85) 96 03/27/19 16:00 98.0 64 18 112/58 (76) 03/27/19 12:00 98.5 62 18 110/55 (73) 03/27/19 09:00 Room Air Intake and Output 03/27/19 03/28/19 18:59 06:59 Intake Total 220.0 ml 1000 ml Output Total 440 ml Balance -220.0 ml 1000 ml Intake Oral 1000 ml IV Total 220.0 ml Other 0 ml Output Urine Total 100 ml Stool Total 340 ml # Voids 5 # Bowel Movements 3 General Appearance: no acute distress, other - awake, alert, responsive Caucasain male HEENT: normocephalic, atraumatic, anicteric, mucous membranes moist Respiratory/Chest: lungs clear, no respiratory distress, no accessory muscle use Cardiovascular: normal rate Abdomen: normal bowel sounds, soft, non tender, other - dressing at surgical site C/D/I Extremities: no edema, pedal pulses normal Neurologic/Psychiatric: no motor/sensory deficits, alert, oriented x 3, responsive Musculoskeletal: normal muscle bulk Current Medications Medications (Trade) Dose Ordered Sig/Pati Route PRN Reason Start Time Stop Time Status Last Admin Dose Admin Acetaminophen (Tylenol) 650 mg Q4H PRN ORAL fever 03/18/19 21:15 04/17/19 21:14 Acetaminophen/ Hydrocodone Bitart ([place] 5/325) 1 tab Q4H PRN ORAL Moderate Pain (Pain Scale 4-6) 03/26/19 17:45 04/02/19 17:44 03/27/19 14:26 Dextrose (Dextrose 50%) 25 ml Q30M PRN IV Hypoglycemia 03/18/19 21:15 04/17/19 21:07 Dextrose (Dextrose 50%) 50 ml Q30M PRN IV hypoglycemia 03/18/19 21:15 04/17/19 21:14 Docusate Sodium (Colace) 100 mg TID ORAL 03/20/19 18:00 04/19/19 17:59 03/27/19 18:06 Finasteride (Proscar) 5 mg DAILY ORAL 03/19/19 09:00 04/18/19 08:59 03/27/19 08:49 Iopamidol (Isovue-300 100ml) 100 ml NOW PRN INJ Radiology Procedure 03/18/19 18:00 Magnesium Hydroxide (Mom) 30 ml DAILYPRN PRN ORAL Constipation 03/21/19 15:00 04/20/19 14:59 03/22/19 11:22 Mirtazapine (Remeron) 7.5 mg BEDTIME ORAL 03/19/19 21:00 04/18/19 20:59 03/27/19 21:36 Ondansetron HCl (Zofran) 4 mg Q6H PRN IVP Nausea & Vomiting 03/18/19 21:15 04/17/19 21:14 Piperacillin Sod/ Tazobactam Sod 3.375 gm/Sodium Chloride 110 ml @ 27.5 mls/hr EVERY 8 HOURS IVPB 03/25/19 14:00 03/30/19 13:59 03/28/19 05:28 Polyethylene Glycol (Miralax) 17 gm HSPRN PRN ORAL Constipation 03/18/19 21:15 04/17/19 21:14 03/25/19 09:36 Risperidone (RisperDAL) 0.5 mg BID ORAL 03/24/19 09:00 04/23/19 08:59 03/27/19 18:07 Tamsulosin HCl (Flomax) 0.4 mg DAILY ORAL 03/19/19 09:00 04/18/19 08:59 03/27/19 08:49 Yvonne Lopez NP Mar 28, 2019 08:15
[2019-03-28] MEDS: Docusate 100mg tablet ORAL SCH ×3 (09:30→18:29)
[2019-03-28] MEDS: Tamsulosin 0.4mg cap ORAL SCH (09:30)
[2019-03-28 12:00] VITALS: BP 135/69
--- NOTE | 2019-03-28 13:47 | General Progress Note ---
Progress Note Progress Note POD #2 doing well ambulatory with pt pain incisional and improved not very talkative today left inguinal exam stable. wound d/c/i. mild edema and no signs of infection. scrotum has not filled with fluid fortunately tolerating diet passing flatus okay for d/c from surgical standpoint diet as tolerated f/u in 2 weeks for wound check thank you Aroldo Mac Mar 28, 2019 13:47
--- NOTE | 2019-03-28 15:45 | NUR ---
CONTRACT OFFICER NOTES PT ACCEPTED BACK TO [facility] ROOM 14 BED C. NURSE TO CALL REPORT TO [phone] ASK FOR [place].
[2019-03-28 16:00] VITALS: BP 123/67
--- NOTE | 2019-03-28 16:38 | Diagnostic Imaging Report ---
Indication: Cough Technique: One view of the chest Comparison: 03/18/2019 Findings: Inspiration is suboptimal. The left medial hemidiaphragm is obscured. No definite acute infiltrates, effusions, congestion. The heart size is upper limits of normal. The aorta is tortuous and ectatic Impression: Hypoventilatory exam Obscured medial left hemidiaphragm, could indicate parenchymal atelectasis and/or consolidation No acute process otherwise
--- NOTE | 2019-03-28 17:15 | Progress Note ---
DATE: 03/28/2019 SUBJECTIVE: This is a male patient, who is confused, disorganized, has got no logical plan for his own self-care. He has got low energy, poor appetite, and loss of interest in activities. He is very confused and disorganized. Making nonsensical statements, that is why, he does require inpatient treatment at this time. He does have some feelings of helplessness, hopelessness, low energy, poor appetite, and loss of interest in activity. That is why, he does require inpatient treatment at this time. He has had some low energy, poor appetite. . Also admits to nonsensical statements, has a lot of confusion, has some disorganized thought process. He has got very poor insight as well illness. He has got a lot of confusion. MENTAL STATUS EXAMINATION: This is a male patient, who is 79 years old. Appearance is disheveled. Attitude, irritable and agitated. Affect, guarded and restricted. Intellect poor. Mood, depressed and anxious. Motor activity, psychomotor agitation. Attention span is poor. Orientation x2. Speech is pressured. Thought process, disorganized and illogical. Insight and judgment is poor. He has incarcerated left inguinal hernia . DIAGNOSIS: Major depressive disorder, mild, recurrent with psychotic features, rule out dementia with psychosis. PLAN: Continue treatment with medications to prevent any further decline in his cognition. Provided him with 20 minutes of cognitive behavioral therapy to help him identify his automatic negative thoughts to help him convert his negative thoughts to more positive thoughts to reduce depression, anxiety, and mood lability. A 20 minutes of cognitive behavioral therapy provided. Chart reviewed. Discussed with staff. Seen and assessed in his room. Valentino Bryan M.D. DR: FAINA JOB#: [id number] CC:
--- NOTE | 2019-03-28 17:19 | NUR ---
DISCHARGE PLANNING DISCHARGE ORDER NOTED Patient has been accepted to; [facility] [address] [place] [id number] Bed: 14-C Skilled [phone] for Nurse to Nurse report [facility] ETA for transportation: 18:30
--- NOTE | 2019-03-28 19:04 | NUR ---
NURSE NOTES: Called and gave report to BRANDY Bryant at [facility]. Contacted MD for medication reconciliation but did not received contact back from MD. Informed BRANDY Bryant at [facility] that a list of patient's home medications and hospital medications will be placed in discharge packet so facility doctor can reconcile.
--- NOTE | 2019-03-28 20:02 | NUR ---
NURSE NOTES: Patient discharged with no acute distress noted. Patient refused to sign for discharge instructions and belongings list, but understands and agrees with plan of care. Patient's IV removed intact, patient transferred onto [facility] ambulance crew [facility] safely and escorted off unit.
--- NOTE | 2019-03-28 20:49 | General Progress Note ---
Assessment/Plan Problem List: (1) Incarcerated left inguinal hernia ICD Codes: K40.30 - Unilateral inguinal hernia, with obstruction, without gangrene, not specified as recurrent SNOMED: 578012527 (2) Schizophrenia ICD Codes: F20.9 - Schizophrenia, unspecified SNOMED: 72220442 (3) BPH (benign prostatic hyperplasia) ICD Codes: N40.0 - Benign prostatic hyperplasia without lower urinary tract symptoms SNOMED: 939864619 (4) Depression ICD Codes: F32.9 - Major depressive disorder, single episode, unspecified SNOMED: 51724181 Status: stable, progressing, tolerating diet Assessment/Plan: s/p inguinal hernia afebrile no acute events reviewed chart and labs and meds Subjective ROS Limited/Unobtainable: Yes Allergies: Coded Allergies: No Known Allergies (Unverified , 03/18/19) Objective Last 24 Hour Vital Signs Date Time Temp Pulse Resp B/P (MAP) Pulse Ox O2 Delivery O2 Flow Rate FiO2 03/28/19 16:00 98.3 63 18 123/67 (85) 18 03/28/19 12:00 98.0 58 17 135/69 (91) 99 03/28/19 09:00 Room Air 03/28/19 08:00 98.3 63 18 127/62 (83) 99 03/28/19 04:00 98.7 86 17 163/91 (115) 96 03/28/19 00:00 99.2 87 17 151/92 (111) 96 03/27/19 21:00 Room Air Intake and Output 03/27/19 03/28/19 19:00 07:00 Intake Total 220.0 ml 1000 ml Output Total 440 ml Balance -220.0 ml 1000 ml Intake Oral 1000 ml IV Total 220.0 ml Other 0 ml Output Urine Total 100 ml Stool Total 340 ml # Voids 5 # Bowel Movements 3 Height (Feet): 5 Height (Inches): 5.00 Weight (Pounds): 162 Neck: normal alignment Cardiovascular: normal rate Respiratory/Chest: lungs clear Abdomen: soft Mana Church MD Mar 28, 2019 20:49
--- NOTE | 2019-03-28 22:33 | Cardiology Progress Note ---
Assessment/Plan Assessment/Plan 1. Moderate aortic regurgitation, asymptomatic, normal LV systolic function with LVEF at 55%. 2. Dyslipidemia. 3. Left incarcerated inguinal hernia, s/p repair with no perioperative cardiac events, postop day #2. Subjective Subjective No cardiac events in the postop period. s/p left hernia repair, POD # 2 Objective Last 24 Hour Vital Signs Date Time Temp Pulse Resp B/P (MAP) Pulse Ox O2 Delivery O2 Flow Rate FiO2 03/28/19 16:00 98.3 63 18 123/67 (85) 18 03/28/19 12:00 98.0 58 17 135/69 (91) 99 03/28/19 09:00 Room Air 03/28/19 08:00 98.3 63 18 127/62 (83) 99 03/28/19 04:00 98.7 86 17 163/91 (115) 96 03/28/19 00:00 99.2 87 17 151/92 (111) 96 Intake and Output 03/27/19 03/28/19 19:00 07:00 Intake Total 220.0 ml 1000 ml Output Total 440 ml Balance -220.0 ml 1000 ml Intake Oral 1000 ml IV Total 220.0 ml Other 0 ml Output Urine Total 100 ml Stool Total 340 ml # Voids 5 # Bowel Movements 3 2D Echo: LVEF 55%, Mild LAE, Mod AR, Mild MR, RVSP 14 mmhg Objective HEENT: Atraumatic and normocephalic. Anicteric. Pupils are equal, round, and reactive to light and accommodation. Extraocular muscles intact. NECK: JVP less than 5 cm. No carotid bruit. Carotid upstrokes 2+ bilaterally. CVS: Normal S1 and S2. There is a 2/6 holosystolic murmur at the apex. No gallops or rubs. LUNGS: Clear to auscultation bilaterally. ABDOMEN: Soft, nontender, and nondistended. No hepatosplenomegaly. Positive bowel sounds. EXTREMITIES: No evidence of edema, clubbing, or cyanosis. Gregor Flores MD Mar 28, 2019 22:33
--- NOTE | 2019-03-30 16:40 | Discharge Summary ---
Discharge Summary Discharge Summary _ DATE OF ADMISSION: 03/18/2019 DATE OF DISCHARGE: 03/28/2029 DISCHARGED BY: Dr. Mg Aranda CONSULTANTS: Dr. Aroldo Weaver [facility] HOSPITAL COURSE: Patient is an 79-year-old male from [facility], who presented to ED due to complaints of abdominal pain and inguinal pain as well as swelling. He has medical history significant for hyperlipidemia, BPH, weakness, depression and schizophrenia. He complained of pain to the pubic area that was throbbing, 8 out of 10 and nonradiating. He denied fever or chills. Denied nausea or vomiting. There was no aggravating or relieving factors. On evaluation at ED, vital signs were stable. Blood work did not show any leukocytosis. Hemoglobin and hematocrit are stable electrolytes were normal. Urinalyses was negative. LFTs normal. Lipase was negative. CT scan of the abdomen and pelvis with contrast showed moderate left inguinal hernia containing nonobstructed loops of bowel. He was given IV hydration. He was given pain medication. Surgical evaluation was obtained. Patient was unsure how long the hernia has been and was not even sure it was a hernia. There was a bulge noted in the left groin. He was identified to have a large incarcerated left inguinal hernia. Consent was obtained and hernia was reduced at bedside in the emergency department. Patient felt much better post procedure , contents of the hernia sac were noted to enter the abdominal cavity and palpable defect was identified. He was then admitted for monitoring and work- up. He was placed on clear diet. He was given IV hydration patient was closely monitored for recurrence of hernia.. The following day, left inguinal hernia again recurred. Surgeon was again able to reduce it he was tolerating diet with no nausea, and vomiting. Patient was tolerating diet well, is voiding well and passing flatus. Due to hernia size, patient was recommended hernia repair. Patient was reluctant to have surgery. Diet was advanced. Psychiatrist was consulted to assess for patient's competency to refuse surgery. He was diagnosed with major depressive disorder, severe, recurrent with psychotic features. He was treated with Remeron nightly, Risperdal twice daily, Namenda twice daily, and Ativan as needed. On 03/25/2019, left inguinal hernia was much larger with more complaints. Surgeon was called. Surgeon was able to reduce the hernia but with some difficulty. Patient then changed his mind and consented for hernia repair. 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 Risk factor for coronary disease was only due to age. He had normal LV systolic function with LVEF at 55 %. Moderate aortic regurgitation, asymptomatic. Venous duplex was negative for acute DVT. Patient was cleared for surgery. On 03/26/2019, he underwent left inguinal hernia repair with mesh. During surgery, patient was normal to have scar tissue. Skin incision was taken down subcutaneous tissue, a significant amount of scar tissue was noted it was clearly evident that the patient had a hernia repair in the past. He was noted to have a hernia mesh that was displaced laterally and superiorly. Mesh was sent to pathology for review. There was no evidence of strangulation or obstruction. He tolerated procedure well and was taken to postanesthetic care unit in stable condition. Both scrotal sac was checked and identified. Both testicles were noted to be in appropriate anatomic positioning. Postop day #1, patient was doing well with minimal pain when laying. Patient was asked regarding prior hernia repair. Patient was very clear that he only had appendectomy several years ago and never had a hernia repair. Operative findings were discussed, patient was insistent on no prior hernia surgery. Left inguinal exam was stable. Wound was dry, clean and intact. There was mild edema with no signs of infection. Scrotum was not filled with fluid. He was tolerating diet well and was passing flatus. He was encouraged use of incentive spirometry. Postop day #2, patient. Incisional pain improved. Left inguinal exam was stable. There was mild edema with no signs of infection. He was tolerating diet well and was passing flatus. Pathology showed fibrous tissue with foreign material. He was cleared for discharge. To follow-up in 2 weeks for wound check. FINAL DIAGNOSES: Incarcerated left inguinal hernia status post left inguinal hernia repair with mesh. Moderate aortic regurgitation Dyslipidemia Major depressive disorder, mild, recurrent with psychotic features BPH DISPOSITION: Patient was discharged to a SNF. DISCHARGE INSTRUCTIONS: Follow-up with surgeon in 2 weeks. I have been assigned to complete a discharge summary on this account, I was not involved with the patient's management.--FELIX Waldrop Jacqueline Robles NP Mar 30, 2019 16:40
== END 2019-03-28 19:50 | DRG 351 ==
LOC: EDBD 17:23 → EDBEDREQ 18:02 → EMR 18:03 → 3E 18:55 → EDBEDREQ 20:01 → 3E 20:30
PROC: 0YU60JZ Supplement Left Inguinal Region with Synthetic Substitute, Open Approach (ICD-10-PCS; principal; 2019-03-26 10:00)
DX: K40.31 Unilateral inguinal hernia, with obstruction, without gangrene, recurrent (principal); F33.3 Major depressive disorder, recurrent, severe with psychotic symptoms; F20.9 Schizophrenia, unspecified; N40.0 Benign prostatic hyperplasia without lower urinary tract symptoms; G31.84 Mild cognitive impairment of uncertain or unknown etiology; F03.90 Unspecified dementia, unspecified severity, without behavioral disturbance, psychotic disturbance, mood disturbance, and anxiety; I35.1 Nonrheumatic aortic (valve) insufficiency
CPT/HCPCS: 36415; 71045; 74177; 80048; 80053; 80061; 81003; 83690; 84443; 85025; 85610; 85730; 86850; 86900; 86901; 93005; 93306; 93970; 94003; 94150; 96374; 97803; 99285; J2250; J2405; J2710

== ENCOUNTER 2019-04-18 20:04 | Inpatient (IN) | payer MEDICARE, MEDICAID ==
[~2019-04-18] VITALS: Ht 167.6 cm; Wt 67.6 kg
[~2019-04-18 20:04] MED LIST: ASPIR 8181 MG ORAL; CARAFATE1 G1 ORAL; DOCUSATE SODIU100 M2 ORAL; FINASTERIDE5 MG ORAL; FLOMAX0.4 MG ORAL; LIPITOR80 MG ORAL; MIRTAZAPINE7.5 MG ORAL; NAMENDA5 MG ORAL; RISPERIDONE0.5 MG PO
[2019-04-18] MEDS ORDERED: DIGOXIN0.125 MG/2 ORAL (20:07)
[2019-04-18] MEDS ORDERED: FLOMAX0.4 MG ORAL (20:07)
[2019-04-18] MEDS ORDERED: ARICEPT5 MG ORAL (20:08)
[2019-04-18 20:22] VITALS: BP 114/84
--- NOTE | 2019-04-18 20:25 | NUR ---
ED Nurse Note: Patient was BIBA from SNF due to lower abdominal pain. Patient has Dementia. Presented with destended abdomen, AAO x1, VSS at this time, skin is intact, warm to touch.
[2019-04-18] MEDS ORDERED: Isovue-300 100ml vial INJ PRN (20:45)
[2019-04-18 21:15] LABS: ANION GAP 14 mmol/L (5-15); BLOOD UREA NITROGEN 29 mg/dL (7-18); CALCIUM 9.3 MG/DL (8.5-10.1); CARBON DIOXIDE 22 MMOL/L (21-32); CHLORIDE 106 MMOL/L (98-107); CREATININE 1.6 MG/DL (0.55-1.30); HEMATOCRIT 34.4 % (42.0-52.0); HEMOGLOBIN 12.2 G/DL (14.2-18.0); MEAN CORPUSCULAR VOLUME 80 FL (80-99); PLATELET COUNT 248 K/UL (150-450); POTASSIUM 4.5 MMOL/L (3.5-5.1); RED BLOOD COUNT 4.28 M/UL (4.70-6.10); RED CELL DISTRIBUTION WIDTH 11.1 % (11.6-14.8); SODIUM 142 MMOL/L (136-145); WHITE BLOOD COUNT 14.8 K/UL (4.8-10.8)
[2019-04-18 21:16] LABS: EOSINOPHILS % (AUTO) 0.2 % (0.0-3.0); MONOCYTES % (AUTO) 5.3 % (1.0-10.0); NEUTROPHILS % (AUTO) 86.7 % (45.0-75.0)
[2019-04-18 21:17] LABS: BASOPHILS % (AUTO) 0.7 % (0.0-2.0)
[2019-04-18 21:22] LABS: ALANINE AMINOTRANSFERASE 22 U/L (12-78); ALBUMIN 3.4 G/DL (3.4-5.0); ALBUMIN/GLOBULIN RATIO 0.7 (1.0-2.7); ALKALINE PHOSPHATASE 66 U/L (46-116); ASPARTATE AMINO TRANSFERASE 19 U/L (15-37); BILIRUBIN,TOTAL 0.3 MG/DL (0.2-1.0)
[2019-04-18 21:25] LABS: APPEARANCE,URINE CLOUDY; BILIRUBIN, URINE NEGATIVE (NEGATIVE); COLOR,URINE PALE YELLOW; GLUCOSE, URINE (UA) NEGATIVE (NEGATIVE); KETONES,URINE NEGATIVE (NEGATIVE); LEUKOCYTE ESTERASE ,URINE 2+ (NEGATIVE); NITRITE,URINE POSITIVE (NEGATIVE); PH,URINE 5 (4.5-8.0); PROTEIN,URINE 1+ (NEGATIVE); UROBILINOGEN,URINE NORMAL MG/DL (0.0-1.0)
[2019-04-18] MEDS ORDERED: Morphine Sulfate 2mg/ml Inj(IV/IM USE ONLY) IVP PRN (21:30)
[2019-04-18] MEDS ORDERED: Miralax 17gm pkt ORAL PRN (21:30)
[2019-04-18] MEDS ORDERED: Albuterol/Ipratropium 3ml neb HHN PRN (21:30)
[2019-04-18] MEDS ORDERED: cefTRIAXone 1 GM in NS 55 ML IVPB ONE (21:45)
--- NOTE | 2019-04-18 22:33 | Diagnostic Imaging Report ---
EXAM: CT Abdomen and Pelvis Without Intravenous Contrast CLINICAL HISTORY: ABD PAIN TECHNIQUE: Axial computed tomography images of the abdomen and pelvis without intravenous contrast. CTDI is 0.15, 13.88 mGy and DLP is 817 mGy-cm. One or more of the following dose reduction techniques were used: automated exposure control, adjustment of the mA and/or kV according to patient size, use of iterative reconstruction technique. Coronal and sagittal reformatted images were created and reviewed. COMPARISON: 03/18/19 FINDINGS: Lung bases: Mild atelectasis at the dependent aspects of the lungs. 9 mm soft tissue density nodularity in the right lower lobe which is new compared to the prior exam and is likely related to a focal area of atelectasis. ABDOMEN: Liver: The liver is grossly unremarkable for a noncontrast CT. Gallbladder and bile ducts: Status post cholecystectomy. No ductal dilation. Pancreas: The pancreas is grossly unremarkable for a noncontrast CT. No ductal dilation. Spleen: The spleen is grossly unremarkable for a noncontrast CT. Adrenals: Mild nodularity of the left adrenal gland which has a similar appearance compared to the prior exam and is likely related to an adenoma. Kidneys and ureters: Bilateral moderate hydronephrosis without evidence for ureteral stone. This may be related to a prior bladder outlet obstruction. Mild bilateral perinephric stranding which may be related to chronic scarring. An acute infectious/inflammatory process such as acute pyelonephritis cannot be excluded. Correlation with clinical and laboratory findings is recommended. Stomach and bowel: Large amount of stool in the rectum. Fecal impaction should be considered. Evaluation of portions of the sigmoid colon are limited secondary to poor distention. No definite evidence for bowel related inflammatory changes. No evidence for significant bowel loop dilation to suggest an obstructive process. PELVIS: Appendix: The appendix is not clearly identified. Bladder: Roberts catheter with some gas in the bladder. The bladder appears decompressed. There is question of some mild infiltration of the fat adjacent to the bladder. Cystitis cannot be excluded. No stones. Reproductive: The prostate gland is enlarged measuring 5.5 x 4.1 cm in transverse dimensions. ABDOMEN and PELVIS: Intraperitoneal space: Unremarkable. No free air. No significant fluid collection. Bones/joints: Osteopenia. Mild vertebral body compression fracture of L1 which has a similar appearance compared to the prior exam. Degenerative changes of the thoracolumbar spine. Degenerative changes of the hips. No dislocation. Soft tissues: The previously seen left inguinal hernia is no longer visualized. Low-density areas are seen in the left inguinal hernia with infiltration of the adjacent fat which are likely related to postsurgical changes. An infectious process cannot be excluded radiographically. Vasculature: Vascular atherosclerotic calcifications. No abdominal aortic aneurysm. Lymph nodes: Prominent nonspecific right inguinal lymph node measuring 1.9 x 1.3 cm in transverse dimensions. IMPRESSION: 1. Large amount of stool in the rectum. Fecal impaction should be considered. 2. Roberts catheter with some gas in the bladder. The bladder appears decompressed. There is question of some mild infiltration of the fat adjacent to the bladder. Cystitis cannot be excluded. 3. Bilateral moderate hydronephrosis without evidence for ureteral stone. This may be related to a prior bladder outlet obstruction. 4. The prostate gland is enlarged measuring 5.5 x 4.1 cm in transverse dimensions. 5. Mild bilateral perinephric stranding which may be related to chronic scarring. An acute infectious/inflammatory process such as acute pyelonephritis cannot be excluded. Correlation with clinical and laboratory findings is recommended. 6. The previously seen left inguinal hernia is no longer visualized. Low-density areas are seen in the left inguinal hernia with infiltration of the adjacent fat which are likely related to postsurgical changes. An infectious process cannot be excluded radiographically. 7. Prominent nonspecific right inguinal lymph node measuring 1.9 x 1.3 cm in transverse dimensions.
--- NOTE | 2019-04-18 22:46 | Emergency Room Report ---
History of Present Illness General Chief Complaint: Abdominal Pain Source: Medical Record Present Illness HPI 79-year-old male presents ED for evaluation. Coming from senior care facility with abdominal pain and distention x1 day. Patient is nonverbal. History of dementia. Unable to provide any additional history at this time. No reported fevers or chills. No reported chest pain. No nausea or vomiting. No other aggravating relieving factors. No other associated symptoms Allergies: Coded Allergies: No Known Allergies (Unverified , 03/18/19) Patient History Past Medical History: AFib, dementia, psych hx, other - BPH Pertinent Family History: none Social History: Denies: smoking, alcohol use, drug use Immunizations: UTD Reviewed Nursing Documentation: PMH: Agreed; PSxH: Agreed Nursing Documentation-PMH Past Medical History: No History, Except For Hx Cardiac Problems: Yes - A-fib,HYPERLIPIDEMIA Hx Cancer: Yes - BPH Hx Gastrointestinal Problems: No Hx Neurological Problems: Yes - Dementia,depression Review of Systems All Other Systems: limited Physical Exam Vital Signs Date Time Temp Pulse Resp B/P (MAP) Pulse Ox O2 Delivery O2 Flow Rate FiO2 04/18/19 19:56 98.2 99 24 114/84 (94) 94 Room Air Sp02 EP Interpretation: reviewed, normal General Appearance: other - nonverbal Head: normocephalic Eyes: bilateral eye normal inspection, bilateral eye PERRL ENT: normal ENT inspection Neck: normal inspection Respiratory: chest non-tender, lungs clear, normal breath sounds, speaking full sentences Cardiovascular #1: regular rate, rhythm, no edema Gastrointestinal: normal bowel sounds, soft, distended Rectal: deferred Genitourinary: no CVA tenderness Musculoskeletal: normal inspection Neurologic: other - dementia Psychiatric: other - dementia Skin: no rash Lymphatic: normal inspection Medical Decision Making Diagnostic Impression: Primary Impression: Urinary retention Additional Impressions: BPH (benign prostatic hyperplasia) Qualified Codes: N40.0 - Benign prostatic hyperplasia without lower urinary tract symptoms Pyelonephritis Schizophrenia Qualified Codes: F20.9 - Schizophrenia, unspecified Renal insufficiency ER Course Hospital Course 79 yo M presents with abd distension. abd pain Differential diagnoses include: BPH, cystitis, pyelonephritis, kidney stone Clinical course Patient placed on stretcher. air sampling and monitoring. After initial history and physical I ordered labs, alexandra catheter, CT scan After Alexandra catheter placed large amount of urine output noted. Labs - noted leukocytosis, Hb/Hct stable, BUN/Cr elevated, UA + bacteria CT abdomen and pelvis - hydronephrosis, enlarged prostate, pyelonephritis, significant fecal impaction IV Fluids given. Antibiotics given. Case discussed with Dr. Aranda and he agreed to accept the patient to his service for further care and support I feel this is a highly complex case requiring extensive working including EKG/ Rhythm strip, Xray/CT/US, Blood/urine lab work, repeat exams while in ED, and administration of strong opiates/narcotics for pain control, admission to hospital or close patient follow up. Diagnosis - urinary retention, BPH, pyelonephritis, schizophrenia, renal insufficiency Patient admitted to floor in serious condition Labs Test 04/18/19 21:00 04/18/19 21:05 White Blood Count 14.8 K/UL (4.8-10.8) Red Blood Count 4.28 M/UL (4.70-6.10) Hemoglobin 12.2 G/DL (14.2-18.0) Hematocrit 34.4 % (42.0-52.0) Mean Corpuscular Volume 80 FL (80-99) Mean Corpuscular Hemoglobin 28.4 PG (27.0-31.0) Mean Corpuscular Hemoglobin Concent 35.4 G/DL (32.0-36.0) Red Cell Distribution Width 11.1 % (11.6-14.8) Platelet Count 248 K/UL (150-450) Mean Platelet Volume 5.7 FL (6.5-10.1) Neutrophils (%) (Auto) 86.7 % (45.0-75.0) Lymphocytes (%) (Auto) 7.0 % (20.0-45.0) Monocytes (%) (Auto) 5.3 % (1.0-10.0) Eosinophils (%) (Auto) 0.2 % (0.0-3.0) Basophils (%) (Auto) 0.7 % (0.0-2.0) Sodium Level 142 MMOL/L (136-145) Potassium Level 4.5 MMOL/L (3.5-5.1) Chloride Level 106 MMOL/L (98-107) Carbon Dioxide Level 22 MMOL/L (21-32) Anion Gap 14 mmol/L (5-15) Blood Urea Nitrogen 29 mg/dL (7-18) Creatinine 1.6 MG/DL (0.55-1.30) Estimat Glomerular Filtration Rate mL/min (>60) Glucose Level 151 MG/DL (74-106) Calcium Level 9.3 MG/DL (8.5-10.1) Total Bilirubin 0.3 MG/DL (0.2-1.0) Aspartate Amino Transf (AST/SGOT) 19 U/L (15-37) Alanine Aminotransferase (ALT/SGPT) 22 U/L (12-78) Alkaline Phosphatase 66 U/L (46-116) Total Protein 8.1 G/DL (6.4-8.2) Albumin 3.4 G/DL (3.4-5.0) Globulin 4.7 g/dL Albumin/Globulin Ratio 0.7 (1.0-2.7) Lipase 160 U/L (73-393) Urine Color Pale yellow Urine Appearance Cloudy Urine pH 5 (4.5-8.0) Urine Specific [place] 1.015 (1.005-1.035) Urine Protein 1+ (NEGATIVE) Urine Glucose (UA) Negative (NEGATIVE) Urine Ketones Negative (NEGATIVE) Urine Blood 5+ (NEGATIVE) Urine Nitrite Positive (NEGATIVE) Urine Bilirubin Negative (NEGATIVE) Urine Urobilinogen Normal MG/DL (0.0-1.0) Urine Leukocyte Esterase 2+ (NEGATIVE) Urine RBC Tntc /HPF (0 - 0) Urine WBC 10-15 /HPF (0 - 0) Urine Squamous Epithelial Cells Occasional /LPF Urine Bacteria Many /HPF (NONE) CT/MRI/US Diagnostic Results CT/MRI/US Diagnostic Results : Imaging Test Ordered: CT A/P Impression IMPRESSION: 1. Large amount of stool in the rectum. Fecal impaction should be considered. 2. Alexandra catheter with some gas in the bladder. The bladder appears decompressed. There is question of some mild infiltration of the fat adjacent to the bladder. Cystitis cannot be excluded. 3. Bilateral moderate hydronephrosis without evidence for ureteral stone. This may be related to a prior bladder outlet obstruction. 4. The prostate gland is enlarged measuring 5.5 x 4.1 cm in transverse dimensions. 5. Mild bilateral perinephric stranding which may be related to chronic scarring. An acute infectious/inflammatory process such as acute pyelonephritis cannot be excluded. Correlation with clinical and laboratory findings is recommended. 6. The previously seen left inguinal hernia is no longer visualized. Low- density areas are seen in the left inguinal hernia with infiltration of the adjacent fat which are likely related to postsurgical changes. An infectious process cannot be excluded radiographically. 7. Prominent nonspecific right inguinal lymph node measuring 1.9 x 1.3 cm in transverse dimensions. Last Vital Signs Date Time Temp Pulse Resp B/P (MAP) Pulse Ox O2 Delivery O2 Flow Rate FiO2 04/18/19 20:22 99 24 Room Air 04/18/19 20:22 98.2 114/84 94 Status: improved Disposition: ADMITTED INPATIENT Condition: Serious Referrals: NON PHYSICIAN (PCP) Jaren Milner MD Apr 18, 2019 22:46
[2019-04-18 23:14] VITALS: BP 114/84
--- NOTE | 2019-04-18 23:15 | NUR ---
ED Nurse Note: Patient was admited to [facility] due to lower abdominal pain, generalized weakness, urinary retention. Patient was transfered to the unit via gurney, with all belongings. Patient AAO x2, VSS at this time. Patient was transfered with alexandra 16 F, IV R forearm 20 ga.
--- NOTE | 2019-04-18 23:20 | NUR ---
NURSE NOTES: Pt is admitted from ER with DX of abdominal pain via gurney under Dr. Aranda. Report received from [facility]. Vitals stable. No acute distres noted. Abdomen is flat and soft now, pt does not complain of any pain. Pt is in bed calm. Roebrts cath draining yellow urine. Admission orders acknowledged from Dr. Ruiz. Physical assessment done, no pressure ulcers, some scab on right knee. Pt is non-verbal, makes eye contact. Belongings checked, adelina a shirt and pants found. Pt oriented to the unit board updated. Fall precautions implemented. Bed locked low in position,side rails up and call light within reach. Bed alarm on. Pt will be monitored.
[2019-04-19] VITALS: BP 134/80
--- NOTE | 2019-04-19 03:23 | NUR ---
NURSE NOTES: Pt is in bed, asleep. No acute distress noted.
[2019-04-19 04:00] VITALS: BP 100/88
--- NOTE | 2019-04-19 05:14 | NUR ---
NURSE NOTES: Pt is verbal now. He is refusing blood draw for labs.
--- NOTE | 2019-04-19 05:45 | NUR ---
NURSE NOTES: Pt allowed to have blood drawn for am labs and blood culture.
[2019-04-19 06:42] LABS: HEMATOCRIT 36.1 % (42.0-52.0); HEMOGLOBIN 12.2 G/DL (14.2-18.0); MEAN CORPUSCULAR VOLUME 85 FL (80-99); PLATELET COUNT 259 K/UL (150-450); RED BLOOD COUNT 4.27 M/UL (4.70-6.10); RED CELL DISTRIBUTION WIDTH 11.7 % (11.6-14.8); WHITE BLOOD COUNT 14.8 K/UL (4.8-10.8)
[2019-04-19 06:49] LABS: ALANINE AMINOTRANSFERASE 16 U/L (12-78); ALBUMIN 2.8 G/DL (3.4-5.0); ALBUMIN/GLOBULIN RATIO 0.7 (1.0-2.7); ALKALINE PHOSPHATASE 53 U/L (46-116); ANION GAP 12 mmol/L (5-15); ASPARTATE AMINO TRANSFERASE 17 U/L (15-37); BILIRUBIN,TOTAL 0.4 MG/DL (0.2-1.0); BLOOD UREA NITROGEN 22 mg/dL (7-18); CALCIUM 8.7 MG/DL (8.5-10.1); CARBON DIOXIDE 20 MMOL/L (21-32); CHLORIDE 111 MMOL/L (98-107); CREATININE 1.2 MG/DL (0.55-1.30); POTASSIUM 3.9 MMOL/L (3.5-5.1); SODIUM 143 MMOL/L (136-145)
--- NOTE | 2019-04-19 07:10 | NUR ---
HAND-OFF: Report given to Tyra LAW RN.Informed that pt is Fall risk.
--- NOTE | 2019-04-19 07:28 | Consultation ---
History of Present Illness General Chief Complaint: Abdominal Pain Present Illness Allergies: Coded Allergies: No Known Allergies (Unverified , 03/18/19) Medication History Scheduled Aspirin* (Aspir 81*), 81 MG ORAL DAILY, (Reported) Atorvastatin (Lipitor), 40 MG ORAL BEDTIME, (Reported) Digoxin* (Digoxin*), 0.125 MG ORAL DAILY, (Reported) Docusate Sodium (Docusate Sodium), 100 MG ORAL DAILY, (Reported) Donepezil Hcl* (Aricept*), 5 MG ORAL DAILY, (Reported) Finasteride (Finasteride), 5 MG ORAL DAILY, (Reported) Memantine Hcl* (Namenda*), 5 MG ORAL DAILY, (Reported) Mirtazapine* (Mirtazapine*), 7.5 MG ORAL BEDTIME, (Reported) Risperidone (Risperidone), 0.5 MG PO BID, (Reported) Sucralfate* (Carafate*), 1 GM ORAL FOUR TIMES A DAY, (Reported) Tamsulosin HCl (Flomax), 0.4 MG ORAL DAILY, (Reported) Tamsulosin HCl (Flomax), 0.4 MG ORAL DAILY, (Reported) Patient History Healthcare decision maker Resuscitation status Full Code Advanced Directive on File Physical Exam Last 24 Hour Vital Signs Date Time Temp Pulse Resp B/P (MAP) Pulse Ox O2 Delivery O2 Flow Rate FiO2 04/19/19 04:00 98.8 67 20 100/88 (92) 94 04/19/19 02:52 Room Air 04/19/19 00:00 99.5 87 18 134/80 (98) 97 04/18/19 23:14 98.2 87 24 114/84 94 Room Air 04/18/19 23:12 98.2 24 114/84 94 Room Air 04/18/19 20:22 99 24 Room Air 04/18/19 20:22 98.2 24 114/84 94 Room Air 04/18/19 19:56 98.2 99 24 114/84 (94) 94 Room Air Intake and Output 04/18/19 04/19/19 19:00 07:00 Intake Total 50 ml Output Total 2200 ml Balance -2150 ml Intake Oral 50 ml Output Urine Total 2200 ml Laboratory Tests Test 04/18/19 21:00 04/18/19 21:05 04/19/19 05:50 White Blood Count 14.8 K/UL (4.8-10.8) H 14.8 K/UL (4.8-10.8) H Red Blood Count 4.28 M/UL (4.70-6.10) L 4.27 M/UL (4.70-6.10) L Hemoglobin 12.2 G/DL (14.2-18.0) L 12.2 G/DL (14.2-18.0) L Hematocrit 34.4 % (42.0-52.0) L 36.1 % (42.0-52.0) L Mean Corpuscular Volume 80 FL (80-99) 85 FL (80-99) Mean Corpuscular Hemoglobin 28.4 PG (27.0-31.0) 28.5 PG (27.0-31.0) Mean Corpuscular Hemoglobin Concent 35.4 G/DL (32.0-36.0) 33.7 G/DL (32.0-36.0) Red Cell Distribution Width 11.1 % (11.6-14.8) L 11.7 % (11.6-14.8) Platelet Count 248 K/UL (150-450) 259 K/UL (150-450) Mean Platelet Volume 5.7 FL (6.5-10.1) L 6.0 FL (6.5-10.1) L Neutrophils (%) (Auto) 86.7 % (45.0-75.0) H % (45.0-75.0) Lymphocytes (%) (Auto) 7.0 % (20.0-45.0) L % (20.0-45.0) Monocytes (%) (Auto) 5.3 % (1.0-10.0) % (1.0-10.0) Eosinophils (%) (Auto) 0.2 % (0.0-3.0) % (0.0-3.0) Basophils (%) (Auto) 0.7 % (0.0-2.0) % (0.0-2.0) Sodium Level 142 MMOL/L (136-145) 143 MMOL/L (136-145) Potassium Level 4.5 MMOL/L (3.5-5.1) 3.9 MMOL/L (3.5-5.1) Chloride Level 106 MMOL/L (98-107) 111 MMOL/L (98-107) H Carbon Dioxide Level 22 MMOL/L (21-32) 20 MMOL/L (21-32) L Anion Gap 14 mmol/L (5-15) 12 mmol/L (5-15) Blood Urea Nitrogen 29 mg/dL (7-18) H 22 mg/dL (7-18) H Creatinine 1.6 MG/DL (0.55-1.30) H 1.2 MG/DL (0.55-1.30) Estimat Glomerular Filtration Rate mL/min (>60) mL/min (>60) Glucose Level 151 MG/DL (74-106) H 104 MG/DL (74-106) Calcium Level 9.3 MG/DL (8.5-10.1) 8.7 MG/DL (8.5-10.1) Total Bilirubin 0.3 MG/DL (0.2-1.0) 0.4 MG/DL (0.2-1.0) Aspartate Amino Transf (AST/SGOT) 19 U/L (15-37) 17 U/L (15-37) Alanine Aminotransferase (ALT/SGPT) 22 U/L (12-78) 16 U/L (12-78) Alkaline Phosphatase 66 U/L (46-116) 53 U/L (46-116) Total Protein 8.1 G/DL (6.4-8.2) 7.0 G/DL (6.4-8.2) Albumin 3.4 G/DL (3.4-5.0) 2.8 G/DL (3.4-5.0) L Globulin 4.7 g/dL 4.2 g/dL Albumin/Globulin Ratio 0.7 (1.0-2.7) L 0.7 (1.0-2.7) L Lipase 160 U/L (73-393) Urine Color Pale yellow Urine Appearance Cloudy Urine pH 5 (4.5-8.0) Urine Specific [place] 1.015 (1.005-1.035) Urine Protein 1+ (NEGATIVE) H Urine Glucose (UA) Negative (NEGATIVE) Urine Ketones Negative (NEGATIVE) Urine Blood 5+ (NEGATIVE) H Urine Nitrite Positive (NEGATIVE) H Urine Bilirubin Negative (NEGATIVE) Urine Urobilinogen Normal MG/DL (0.0-1.0) Urine Leukocyte Esterase 2+ (NEGATIVE) H Urine RBC Tntc /HPF (0 - 0) H Urine WBC 10-15 /HPF (0 - 0) H Urine Squamous Epithelial Cells Occasional /LPF Urine Bacteria Many /HPF (NONE) H Neutrophils % (Manual) Pending Lymphocytes % (Manual) Pending Platelet Estimate Pending Platelet Morphology Pending Microbiology Date/Time Source Procedure Growth Status 04/18/19 23:00 Rectum Received Height (Feet): 5 Height (Inches): 6.00 Weight (Pounds): 149 Medications Current Medications Medications (Trade) Dose Ordered Sig/Pati Route PRN Reason Start Time Stop Time Status Last Admin Dose Admin Acetaminophen (Tylenol) 650 mg Q4H PRN ORAL fever 04/18/19 21:30 05/18/19 21:29 Albuterol/ Ipratropium (Albuterol/ Ipratropium) 3 ml EVERY 4 HOURS PRN HHN Shortness of Breath 04/18/19 21:30 04/23/19 21:29 Cefepime HCl 2 gm/ Dextrose 110 ml @ 220 mls/hr DAILY IV 04/19/19 09:00 04/26/19 08:59 Donepezil HCl (Aricept) 5 mg DAILY ORAL 04/19/19 09:00 05/19/19 08:59 Heparin Sodium (Porcine) (Heparin 5000 units/ml) 5,000 units EVERY 12 HOURS SUBQ 04/19/19 09:00 05/19/19 08:59 Memantine (Namenda) 5 mg DAILY ORAL 04/19/19 09:00 05/19/19 08:59 Mirtazapine (Remeron) 7.5 mg BEDTIME ORAL 04/19/19 21:00 05/19/19 20:59 Morphine Sulfate (Morphine Sulfate) 2 mg EVERY 4 HOURS PRN IVP Moderate Pain (Pain Scale 4-6) 04/18/19 21:30 04/25/19 21:29 Ondansetron HCl (Zofran) 4 mg Q6H PRN IVP Nausea & Vomiting 04/18/19 21:30 05/18/19 21:29 Phenazopyridine HCl (Pyridium) 100 mg DAILY PRN ORAL dysuria 04/18/19 21:30 05/18/19 21:29 Polyethylene Glycol (Miralax) 17 gm DAILYPRN PRN ORAL Constipation 04/18/19 21:30 05/18/19 21:29 Risperidone (RisperDAL) 0.5 mg BID ORAL 04/19/19 09:00 05/19/19 08:59 Sucralfate (Carafate) 1 gm FOUR TIMES A DAY ORAL 04/19/19 09:00 05/19/19 08:59 Tamsulosin HCl (Flomax) 0.4 mg DAILY ORAL 04/19/19 09:00 05/19/19 08:59 Temazepam (Restoril) 15 mg HSPRN PRN ORAL Insomnia 04/18/19 21:30 04/25/19 21:29 Assessment/Plan Problem List: (1) BPH (benign prostatic hyperplasia) ICD Codes: N40.0 - Benign prostatic hyperplasia without lower urinary tract symptoms SNOMED: 318260399 Qualifiers: Qualified Codes: N40.0 - Benign prostatic hyperplasia without lower urinary tract symptoms (2) Urinary retention ICD Codes: R33.9 - Retention of urine, unspecified SNOMED: 869662670 (3) Pyelonephritis ICD Codes: N12 - Tubulo-interstitial nephritis, not specified as acute or chronic SNOMED: 96321204 (4) Schizophrenia ICD Codes: F20.9 - Schizophrenia, unspecified SNOMED: 13799518 Qualifiers: Qualified Codes: F20.9 - Schizophrenia, unspecified Assessment/Plan: urine cultures iv abx iv fluids check electrolytes [facility] med[facility] reviewed dvt prophylaxis. Katarzyna Escobedo MD Apr 19, 2019 07:28
--- NOTE | 2019-04-19 07:53 | NUR ---
NURSE NOTES: Received report from [facility]. Patient in bed resting, no active s/s cardiac, respiratory distress noticed at this time. Patient on room air AOX2-3. IV on left FA 20g, asymptomatic, patent, intact. Bed in lowest position, side rails up x2, call light within reach, bed alarm on. Will continue to monitor.
[2019-04-19 08:00] VITALS: BP 111/64
[2019-04-19] MEDS: Tamsulosin 0.4mg cap ORAL SCH (09:41)
[2019-04-19] MEDS: Sucralfate 1gm tab ORAL SCH ×4 (09:42→20:36)
[2019-04-19] MEDS: Donepezil 5mg Tab ORAL SCH (09:42)
[2019-04-19] MEDS: Memantine 10mg tab ORAL SCH (09:42)
[2019-04-19] MEDS: Heparin 5000 units/ml inj SUBQ SCH ×2 (09:43→20:38)
[2019-04-19] MEDS: Cefepime HCl 2 GM in D5W 110 ML IV SCH (09:56)
--- NOTE | 2019-04-19 10:31 | CDS Physician Query ---
Clarification is required for compliance, coding accuracy, and to reflect severity of illness for this patient Dear Katarzyna Mix MD Date: 04/19/2019 According to the clinical indications above, please indicate below the condition Pt has pyelonephritis Labs: WBC: 14.8 Tx: IV CEFEPIME, IV CEFTRIAXONE PHYSICIAN RESPONSE: Sepsis SIRS SIRS with organ dysfunction Septic Shock Not applicable Other: Present on Admission: Yes x No Clinically Undetermined Physician signature Date Please also document in your Progress Notes and/or Discharge Summary and indicate if the condition was present on admission. BRANDIE
--- NOTE | 2019-04-19 11:13 | Consultation ---
History of Present Illness General Date patient seen: Apr 19, 2019 Chief Complaint: Abdominal Pain Reason for Consultation: Sepsis Present Illness HPI Mr. Winter is an 79 yo male with PMHx of Dementia, BPH with alexandra, and Afib who was sent to the ED on 04/18/19 for abdominal pain x 1 day. He had dementia and is not talking to me today so history was obtained from the chart, In the ED he was afebrile with WBCs of 14.8. CT abd showed possible B/L Pyelonephritis and his UA was positive. He was recently admitted last month and underwent left inguinal hernia repair with mesh on 03/26/2019. PMHx/PSHx Dementia BPH with alexandra Afib HLD left inguinal hernia repair with mesh on 03/26/2019. SocHx No E/T/D FamHx Unable to obtain due to dementia Allergies: Coded Allergies: No Known Allergies (Unverified , 03/18/19) Medication History Scheduled Aspirin* (Aspir 81*), 81 MG ORAL DAILY, (Reported) Atorvastatin (Lipitor), 40 MG ORAL BEDTIME, (Reported) Digoxin* (Digoxin*), 0.125 MG ORAL DAILY, (Reported) Docusate Sodium (Docusate Sodium), 100 MG ORAL DAILY, (Reported) Donepezil Hcl* (Aricept*), 5 MG ORAL DAILY, (Reported) Finasteride (Finasteride), 5 MG ORAL DAILY, (Reported) Memantine Hcl* (Namenda*), 5 MG ORAL DAILY, (Reported) Mirtazapine* (Mirtazapine*), 7.5 MG ORAL BEDTIME, (Reported) Risperidone (Risperidone), 0.5 MG PO BID, (Reported) Sucralfate* (Carafate*), 1 GM ORAL FOUR TIMES A DAY, (Reported) Tamsulosin HCl (Flomax), 0.4 MG ORAL DAILY, (Reported) Tamsulosin HCl (Flomax), 0.4 MG ORAL DAILY, (Reported) Patient History Healthcare decision maker Resuscitation status Full Code Advanced Directive on File Review of Systems ROS Narrative Unable to obtain as patient not verbal Physical Exam Last 24 Hour Vital Signs Date Time Temp Pulse Resp B/P (MAP) Pulse Ox O2 Delivery O2 Flow Rate FiO2 04/19/19 09:00 Room Air 04/19/19 08:00 97.3 63 16 111/64 (80) 96 04/19/19 04:00 98.8 67 20 100/88 (92) 94 04/19/19 02:52 Room Air 04/19/19 00:00 99.5 87 18 134/80 (98) 97 04/18/19 23:14 98.2 87 24 114/84 94 Room Air 04/18/19 23:12 98.2 24 114/84 94 Room Air 04/18/19 20:22 99 24 Room Air 04/18/19 20:22 98.2 24 114/84 94 Room Air 04/18/19 19:56 98.2 99 24 114/84 (94) 94 Room Air Intake and Output 04/18/19 04/19/19 19:00 07:00 Intake Total 50 ml Output Total 2600 ml Balance -2550 ml Intake Oral 50 ml Output Urine Total 2600 ml Laboratory Tests Test 04/18/19 21:00 04/18/19 21:05 04/19/19 05:50 White Blood Count 14.8 K/UL (4.8-10.8) H 14.8 K/UL (4.8-10.8) H Red Blood Count 4.28 M/UL (4.70-6.10) L 4.27 M/UL (4.70-6.10) L Hemoglobin 12.2 G/DL (14.2-18.0) L 12.2 G/DL (14.2-18.0) L Hematocrit 34.4 % (42.0-52.0) L 36.1 % (42.0-52.0) L Mean Corpuscular Volume 80 FL (80-99) 85 FL (80-99) Mean Corpuscular Hemoglobin 28.4 PG (27.0-31.0) 28.5 PG (27.0-31.0) Mean Corpuscular Hemoglobin Concent 35.4 G/DL (32.0-36.0) 33.7 G/DL (32.0-36.0) Red Cell Distribution Width 11.1 % (11.6-14.8) L 11.7 % (11.6-14.8) Platelet Count 248 K/UL (150-450) 259 K/UL (150-450) Mean Platelet Volume 5.7 FL (6.5-10.1) L 6.0 FL (6.5-10.1) L Neutrophils (%) (Auto) 86.7 % (45.0-75.0) H % (45.0-75.0) Lymphocytes (%) (Auto) 7.0 % (20.0-45.0) L % (20.0-45.0) Monocytes (%) (Auto) 5.3 % (1.0-10.0) % (1.0-10.0) Eosinophils (%) (Auto) 0.2 % (0.0-3.0) % (0.0-3.0) Basophils (%) (Auto) 0.7 % (0.0-2.0) % (0.0-2.0) Sodium Level 142 MMOL/L (136-145) 143 MMOL/L (136-145) Potassium Level 4.5 MMOL/L (3.5-5.1) 3.9 MMOL/L (3.5-5.1) Chloride Level 106 MMOL/L (98-107) 111 MMOL/L (98-107) H Carbon Dioxide Level 22 MMOL/L (21-32) 20 MMOL/L (21-32) L Anion Gap 14 mmol/L (5-15) 12 mmol/L (5-15) Blood Urea Nitrogen 29 mg/dL (7-18) H 22 mg/dL (7-18) H Creatinine 1.6 MG/DL (0.55-1.30) H 1.2 MG/DL (0.55-1.30) Estimat Glomerular Filtration Rate mL/min (>60) mL/min (>60) Glucose Level 151 MG/DL (74-106) H 104 MG/DL (74-106) Calcium Level 9.3 MG/DL (8.5-10.1) 8.7 MG/DL (8.5-10.1) Total Bilirubin 0.3 MG/DL (0.2-1.0) 0.4 MG/DL (0.2-1.0) Aspartate Amino Transf (AST/SGOT) 19 U/L (15-37) 17 U/L (15-37) Alanine Aminotransferase (ALT/SGPT) 22 U/L (12-78) 16 U/L (12-78) Alkaline Phosphatase 66 U/L (46-116) 53 U/L (46-116) Total Protein 8.1 G/DL (6.4-8.2) 7.0 G/DL (6.4-8.2) Albumin 3.4 G/DL (3.4-5.0) 2.8 G/DL (3.4-5.0) L Globulin 4.7 g/dL 4.2 g/dL Albumin/Globulin Ratio 0.7 (1.0-2.7) L 0.7 (1.0-2.7) L Lipase 160 U/L (73-393) Urine Color Pale yellow Urine Appearance Cloudy Urine pH 5 (4.5-8.0) Urine Specific [place] 1.015 (1.005-1.035) Urine Protein 1+ (NEGATIVE) H Urine Glucose (UA) Negative (NEGATIVE) Urine Ketones Negative (NEGATIVE) Urine Blood 5+ (NEGATIVE) H Urine Nitrite Positive (NEGATIVE) H Urine Bilirubin Negative (NEGATIVE) Urine Urobilinogen Normal MG/DL (0.0-1.0) Urine Leukocyte Esterase 2+ (NEGATIVE) H Urine RBC Tntc /HPF (0 - 0) H Urine WBC 10-15 /HPF (0 - 0) H Urine Squamous Epithelial Cells Occasional /LPF Urine Bacteria Many /HPF (NONE) H Differential Total Cells Counted 100 Neutrophils % (Manual) 87 % (45-75) H Lymphocytes % (Manual) 10 % (20-45) L Monocytes % (Manual) 3 % (1-10) Eosinophils % (Manual) 0 % (0-3) Basophils % (Manual) 0 % (0-2) Band Neutrophils 0 % (0-8) Platelet Estimate Adequate Platelet Morphology Normal Red Blood Cell Morphology Normal Microbiology Date/Time Source Procedure Growth Status 04/18/19 23:00 Rectum Received Height (Feet): 5 Height (Inches): 6.00 Weight (Pounds): 144 Medications Current Medications Medications (Trade) Dose Ordered Sig/Pati Route PRN Reason Start Time Stop Time Status Last Admin Dose Admin Acetaminophen (Tylenol) 650 mg Q4H PRN ORAL fever 04/18/19 21:30 05/18/19 21:29 Albuterol/ Ipratropium (Albuterol/ Ipratropium) 3 ml EVERY 4 HOURS PRN HHN Shortness of Breath 04/18/19 21:30 04/23/19 21:29 Cefepime HCl 2 gm/ Dextrose 110 ml @ 220 mls/hr DAILY IV 04/19/19 09:00 04/26/19 08:59 04/19/19 09:56 Donepezil HCl (Aricept) 5 mg DAILY ORAL 04/19/19 09:00 05/19/19 08:59 04/19/19 09:42 Heparin Sodium (Porcine) (Heparin 5000 units/ml) 5,000 units EVERY 12 HOURS SUBQ 04/19/19 09:00 05/19/19 08:59 04/19/19 09:43 Memantine (Namenda) 5 mg DAILY ORAL 04/19/19 09:00 05/19/19 08:59 04/19/19 09:42 Mirtazapine (Remeron) 7.5 mg BEDTIME ORAL 04/19/19 21:00 05/19/19 20:59 Morphine Sulfate (Morphine Sulfate) 2 mg EVERY 4 HOURS PRN IVP Moderate Pain (Pain Scale 4-6) 04/18/19 21:30 04/25/19 21:29 Ondansetron HCl (Zofran) 4 mg Q6H PRN IVP Nausea & Vomiting 04/18/19 21:30 05/18/19 21:29 Phenazopyridine HCl (Pyridium) 100 mg DAILY PRN ORAL dysuria 04/18/19 21:30 05/18/19 21:29 Polyethylene Glycol (Miralax) 17 gm DAILYPRN PRN ORAL Constipation 04/18/19 21:30 05/18/19 21:29 Risperidone (RisperDAL) 0.5 mg BID ORAL 04/19/19 09:00 05/19/19 08:59 04/19/19 09:42 Sucralfate (Carafate) 1 gm FOUR TIMES A DAY ORAL 04/19/19 09:00 05/19/19 08:59 04/19/19 09:42 Tamsulosin HCl (Flomax) 0.4 mg DAILY ORAL 04/19/19 09:00 05/19/19 08:59 04/19/19 09:41 Temazepam (Restoril) 15 mg HSPRN PRN ORAL Insomnia 04/18/19 21:30 04/25/19 21:29 Objective Narrative Gen: NAD laying in bed HEENT: NCAT, MMM, EOMI, PERRL, following with eyes NECK: upple, No LAD, No JVD LUNGS: CTAB, No W/C, No Accessory muscle use CARDS: RRR, S1, S2, No M/R/G, ABD: Soft, NT, Mild distention, No R/G, + BS, No HSM, No Masses : Deferred Ext: C/C/E, Pulses 2+ B/L (DP, Rad): NEURO: A/O x 0, No following commands Strength and Sensation Grossly intact SKIN: Warm/dry, No rashes Assessment/Plan Assessment/Plan: 89 yo male with PMHx of Dementia, BPH with alexandra, and Afib who was sent to the ED on 04/18/19 for abdominal pain x 1 day. Sepsis Likely pyelonephritis UA Positive CT Abd/Pel - Large amount of stool in the rectum. Fecal impaction should be considered. Alexandra catheter with some gas in the bladder. The bladder appears decompressed. There is question of some mild infiltration of the fat adjacent to the bladder. Cystitis cannot be excluded. Bilateral moderate hydronephrosis without evidence for ureteral stone. This may be related to a prior bladder outlet obstruction. The prostate gland is enlarged measuring 5.5 x 4.1 cm in transverse dimensions. Mild bilateral perinephric stranding which may be related to chronic scarring. An acute infectious/inflammatory process such as acute pyelonephritis cannot be excluded. Correlation with clinical and laboratory findings is recommended. The previously seen left inguinal hernia is no longer visualized. Low-density areas are seen in the left inguinal hernia with infiltration of the adjacent fat which are likely related to postsurgical changes. An infectious process cannot be excluded radiographically. Prominent nonspecific right inguinal lymph node measuring 1.9 x 1.3 cm in transverse dimensions. Urine Cx 04/18/19 - Pend Dementia BPH with alexandra Afib HLD left inguinal hernia repair with mesh on 03/26/2019. PLAN - Continue Cefepime #1 - f/u Urine Cx and blood Cx - Monitor CBC and Temps Thank you for this consult. We will continue to follow the patient during this hospitalization. Rick Crain MD Apr 19, 2019 11:13
[2019-04-19 12:00] VITALS: BP 108/68
--- NOTE | 2019-04-19 12:30 | History and Physical Report ---
DATE OF ADMISSION: 04/18/2019 DATE AND TIME SEEN: 04/19/2019 at 10 a.m. CONSULTANTS: 1. Katarzyna Escobedo M.D. 2. Benson Villa M.D. CHIEF COMPLAINT: Abdominal pain, urinary retention, and UTI. BRIEF HISTORY: This is an 79-year-old male from [facility], presented with above-mentioned diagnosis, diagnosed with urinary retention, Roberts was placed. The patient felt a little bit better. The patient was admitted to medical floor. Currently, calm in bed, slightly confused. No complaint. REVIEW OF SYSTEMS: No chest pain. No shortness of breath. Slight nausea. No vomiting or diarrhea. PAST MEDICAL HISTORY: Includes renal insufficiency, schizophrenia, and BPH. PAST SURGICAL HISTORY: Unknown. ALLERGIES: Denies. MEDICATIONS: Include Remeron, Aricept, Namenda, Carafate, Flomax, Risperdal, cefepime, Tylenol, Zofran, and temazepam. SOCIAL HISTORY: No smoking. No alcohol. No intravenous drug abuse. FAMILY HISTORY: Noncontributory. PHYSICAL EXAMINATION: GENERAL: Calm in bed, oriented x1, in no acute distress. VITAL SIGNS: Temperature is 98 degrees, pulse , respiratory rate 20, blood pressure 100/88. CARDIOVASCULAR: No murmurs. LUNGS: Distant and clear. ABDOMEN: Bowel sounds positive. Nontender. Nondistended. EXTREMITIES: No cyanosis, clubbing, or edema. NEUROLOGIC: The patient moves all extremities, slightly weak. LABORATORY AND DIAGNOSTIC DATA: White count is 14.8, hemoglobin and hematocrit 12/36, CBC is normal. BMP show chloride 111, CO2 is 28, BUN is 22. Albumin 2.8. Urinalysis show 5+ blood, 2+ leukocyte esterase. ASSESSMENT: 1. Urinary retention. 2. Abdominal pain. 3. Renal insufficiency. 4. Anemia. 5. UTI. 6. Malnutrition. 7. Bilateral hydronephrosis. 8. Schizophrenia. 9. BPH. PLAN: 1. Roberts monitor urine output. 2. Antibiotic per Infectious Disease. 3. IV fluids. 4. Dietary followup. 5. Resume home medications. 6. PT and dietary evaluation. 7. CBC and BMP in the morning. 8. We will continue to follow the patient. Mg Aranda D.O. DR: COLE JOB#: [id number] CC:
[2019-04-19] MEDS ORDERED: Tubing IV Secondary IV ONE (15:50)
[2019-04-19 16:00] VITALS: BP 103/53
[2019-04-19] MEDS ORDERED: CARAFATE SUSP UD1 G1 PO (18:08)
[2019-04-19] MEDS ORDERED: DIGOXIN125 MCG ORAL (18:10)
--- NOTE | 2019-04-19 19:33 | NUR ---
HAND-OFF: Report given to LIANA Grimes.
--- NOTE | 2019-04-19 19:48 | NUR ---
Nurses notes Patient in bed awake, alert and verbal. No acute distress noted. Patient has alexandra catheter draining clear yellow urine. Fall precaution in place.Bed locked low in position.Side rails up and bed alarm on. Call light within reach and encouraged patient to use call light for assistance. will continue to monitor the patient for safety.
[2019-04-19 20:00] VITALS: BP 96/56
--- NOTE | 2019-04-19 20:16 | NUR ---
NURSE NOTES: pt is in bed, awake and verbal. No acute distress noted. Pt had two large BMs during last shift. Pt appears comfortable in bed. Fall Precaution in place. bed locked low in position, side rails up and call light within reach. Pt instructed to call before getting out of bed. Pt will be monitored. Trainee, Matilda ChaudhariRN, will be assisting in the care of this patient.
[2019-04-20] VITALS: BP 97/57
--- NOTE | 2019-04-20 02:25 | NUR ---
NURSE NOTES: Patient is in bed,asleep. No accute distress noted.Vitals are stable. F/C patent and draining yellow urine. Bed low and locked position. Call light within reach.
[2019-04-20 04:00] VITALS: BP 106/64
--- NOTE | 2019-04-20 07:31 | NUR ---
HAND-OFF: Report given to Flori GAINES.Informed patient is fall risk.
[2019-04-20 07:43] LABS: BASOPHILS % (AUTO) 0.8 % (0.0-2.0); HEMATOCRIT 30.9 % (42.0-52.0); HEMOGLOBIN 10.3 G/DL (14.2-18.0); MEAN CORPUSCULAR VOLUME 85 FL (80-99); NEUTROPHILS % (AUTO) 61.2 % (45.0-75.0); PLATELET COUNT 178 K/UL (150-450); RED BLOOD COUNT 3.65 M/UL (4.70-6.10); RED CELL DISTRIBUTION WIDTH 11.9 % (11.6-14.8); WHITE BLOOD COUNT 7.3 K/UL (4.8-10.8)
[2019-04-20 07:55] LABS: ALANINE AMINOTRANSFERASE 18 U/L (12-78); ALBUMIN 2.7 G/DL (3.4-5.0); ALBUMIN/GLOBULIN RATIO 0.7 (1.0-2.7); ALKALINE PHOSPHATASE 47 U/L (46-116); ANION GAP 9 mmol/L (5-15); ASPARTATE AMINO TRANSFERASE 15 U/L (15-37); BILIRUBIN,TOTAL 0.3 MG/DL (0.2-1.0); BLOOD UREA NITROGEN 23 mg/dL (7-18); CALCIUM 8.7 MG/DL (8.5-10.1); CARBON DIOXIDE 24 MMOL/L (21-32); CHLORIDE 109 MMOL/L (98-107); CREATININE 1.3 MG/DL (0.55-1.30); PHOSPHORUS 2.7 MG/DL (2.5-4.9); POTASSIUM 3.8 MMOL/L (3.5-5.1); SODIUM 142 MMOL/L (136-145)
[2019-04-20 08:00] VITALS: BP 125/62
--- NOTE | 2019-04-20 08:15 | NUR ---
NURSE NOTES: received pt from NOC LIANA Christensen and orientee RN Alexa Chaudhari. Pt is asleep, with no sign of distress. Roberts catheter in place, draining yellow urine to gravity, anchor is loose, replaced anchor. IV access LFA, saline locked. Bed locked at the lowest position possible, call light within easy reach, siderails up x3, on bed alarm. Will continue to monitor pt and follow up with the plan of care.
[2019-04-20] MEDS: Donepezil 5mg Tab ORAL SCH (09:50)
[2019-04-20] MEDS: Memantine 10mg tab ORAL SCH (09:50)
[2019-04-20] MEDS: Tamsulosin 0.4mg cap ORAL SCH (09:50)
[2019-04-20] MEDS: Sucralfate 1gm tab ORAL SCH ×4 (09:50→21:09)
[2019-04-20] MEDS: Heparin 5000 units/ml inj SUBQ SCH ×2 (09:51→21:11)
[2019-04-20] MEDS: Cefepime HCl 2 GM in D5W 110 ML IV SCH (09:52)
--- NOTE | 2019-04-20 10:29 | General Progress Note ---
Assessment/Plan Problem List: (1) Pyelonephritis ICD Codes: N12 - Tubulo-interstitial nephritis, not specified as acute or chronic SNOMED: 74894186 (2) Renal insufficiency ICD Codes: N28.9 - Disorder of kidney and ureter, unspecified SNOMED: 436538880, 012690810 (3) Urinary retention ICD Codes: R33.9 - Retention of urine, unspecified SNOMED: 759766475 (4) Schizophrenia ICD Codes: F20.9 - Schizophrenia, unspecified SNOMED: 25128257 Qualifiers: Qualified Codes: F20.9 - Schizophrenia, unspecified (5) BPH (benign prostatic hyperplasia) ICD Codes: N40.0 - Benign prostatic hyperplasia without lower urinary tract symptoms SNOMED: 925905374 Qualifiers: Qualified Codes: N40.0 - Benign prostatic hyperplasia without lower urinary tract symptoms (6) Depression ICD Codes: F32.9 - Major depressive disorder, single episode, unspecified SNOMED: 67476824 Status: stable, progressing Assessment/Plan: uro f/u pt diet abx cbc bmp am aru eval Subjective Constitutional: Reports: weakness Allergies: Coded Allergies: No Known Allergies (Unverified , 03/18/19) All Systems: reviewed and negative except above Subjective sleepy in bed Objective Last 24 Hour Vital Signs Date Time Temp Pulse Resp B/P (MAP) Pulse Ox O2 Delivery O2 Flow Rate FiO2 04/20/19 08:00 97.8 60 20 125/62 (83) 95 04/20/19 04:00 96.8 64 18 106/64 (78) 96 04/20/19 00:00 97.0 68 18 97/57 (70) 96 04/19/19 21:00 Room Air 04/19/19 20:00 96.6 66 18 96/56 (69) 96 04/19/19 16:00 98.3 60 18 103/53 (70) 96 04/19/19 12:00 97.9 62 18 108/68 (81) 96 Intake and Output 04/19/19 04/20/19 19:00 07:00 Intake Total 900 ml 240 ml Output Total 900 ml 700 ml Balance 0 ml -460 ml Intake Oral 240 ml Other 900 ml Output Urine Total 900 ml 700 ml # Bowel Movements 1 Laboratory Tests 04/20/19 07:04: White Blood Count 7.3#, Red Blood Count 3.65L, Hemoglobin 10.3L, Hematocrit 30.9L, Mean Corpuscular Volume 85, Mean Corpuscular Hemoglobin 28.1, Mean Corpuscular Hemoglobin Concent 33.2, Red Cell Distribution Width 11.9, Platelet Count 178, Mean Platelet Volume 6.3L, Neutrophils (%) (Auto) 61.2, Lymphocytes ( %) (Auto) 29.0, Monocytes (%) (Auto) 6.0, Eosinophils (%) (Auto) 3.0, Basophils (%) (Auto) 0.8, Erythrocyte Sedimentation Rate 48H, Sodium Level 142, Potassium Level 3.8, Chloride Level 109H, Carbon Dioxide Level 24, Anion Gap 9, Blood Urea Nitrogen 23H, Creatinine 1.3, Estimat Glomerular Filtration Rate , Glucose Level 95, Calcium Level 8.7, Phosphorus Level 2.7, Magnesium Level 1.7L, Total Bilirubin 0.3, Aspartate Amino Transf (AST/SGOT) 15, Alanine Aminotransferase ( ALT/SGPT) 18, Alkaline Phosphatase 47, C-Reactive Protein, Quantitative 2.6H, Total Protein 6.8, Albumin 2.7L, Globulin 4.1, Albumin/Globulin Ratio 0.7L Height (Feet): 5 Height (Inches): 6.00 Weight (Pounds): 149 General Appearance: lethargic EENT: normal ENT inspection Neck: normal alignment Cardiovascular: normal peripheral pulses, normal rate, regular rhythm Respiratory/Chest: chest wall non-tender, lungs clear, normal breath sounds Abdomen: normal bowel sounds, non tender, soft Extremities: normal inspection Edema: no edema noted Arm (L), no edema noted Arm (R), no edema noted Leg (L), no edema noted Leg (R), no edema noted Pedal (L), no edema noted Pedal (R), no edema noted Generalized Neurologic: motor weakness Skin: normal pigmentation, warm/dry Mg Aranda DO Apr 20, 2019 10:29
[2019-04-20 12:00] VITALS: BP 108/59
[2019-04-20 16:00] VITALS: BP 110/61
--- NOTE | 2019-04-20 17:16 | NUR ---
PT note PT marco completed, tx initiated. Patient has decreased LE ROM, muscle weakness and poor sitting/standing balance, required extensive assist of 2 persons in mobility and gait. Pt needs PT to increase his muscle strength and balance and ROM to improve his functional mobility and gait. Addendum: 04/20/19 at 1716 by PRUDENCE EDMONDS PT Amended: Links added.
--- NOTE | 2019-04-20 18:27 | Pulmonology Progress Note ---
Assessment/Plan Problems: (1) Urinary retention (2) Pyelonephritis (3) BPH (benign prostatic hyperplasia) (4) Schizophrenia Assessment/Plan wbc lower bun/creatinine better iv abx symptomatic treatment check electrolytes pt/ot Subjective ROS Limited/Unobtainable: No Constitutional: Reports: no symptoms HEENT: Repors: no symptoms Allergies: Coded Allergies: No Known Allergies (Unverified , 03/18/19) Objective Last 24 Hour Vital Signs Date Time Temp Pulse Resp B/P (MAP) Pulse Ox O2 Delivery O2 Flow Rate FiO2 04/20/19 16:00 97.8 67 19 110/61 (77) 95 04/20/19 12:00 96.1 65 19 108/59 (75) 94 04/20/19 09:00 Room Air 04/20/19 08:00 97.8 60 20 125/62 (83) 95 04/20/19 04:00 96.8 64 18 106/64 (78) 96 04/20/19 00:00 97.0 68 18 97/57 (70) 96 04/19/19 21:00 Room Air 04/19/19 20:00 96.6 66 18 96/56 (69) 96 Intake and Output 04/19/19 04/20/19 18:59 06:59 Intake Total 900 ml 240 ml Output Total 900 ml 700 ml Balance 0 ml -460 ml Intake Oral 240 ml Other 900 ml Output Urine Total 900 ml 700 ml # Bowel Movements 1 General Appearance: WD/WN Respiratory/Chest: chest wall non-tender, lungs clear Cardiovascular: normal peripheral pulses, normal rate Abdomen: normal bowel sounds, soft, non tender Genitourinary: normal external genitalia Extremities: no clubbing 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 Microbiology Date/Time Source Procedure Growth Status 04/18/19 21:05 Urine,Clean Catch Urine Culture - Preliminary Gram Positive Cocci Resulted 04/18/19 23:00 Rectum Received Laboratory Tests 04/20/19 07:04: White Blood Count 7.3#, Red Blood Count 3.65L, Hemoglobin 10.3L, Hematocrit 30.9L, Mean Corpuscular Volume 85, Mean Corpuscular Hemoglobin 28.1, Mean Corpuscular Hemoglobin Concent 33.2, Red Cell Distribution Width 11.9, Platelet Count 178, Mean Platelet Volume 6.3L, Neutrophils (%) (Auto) 61.2, Lymphocytes ( %) (Auto) 29.0, Monocytes (%) (Auto) 6.0, Eosinophils (%) (Auto) 3.0, Basophils (%) (Auto) 0.8, Erythrocyte Sedimentation Rate 48H, Sodium Level 142, Potassium Level 3.8, Chloride Level 109H, Carbon Dioxide Level 24, Anion Gap 9, Blood Urea Nitrogen 23H, Creatinine 1.3, Estimat Glomerular Filtration Rate , Glucose Level 95, Calcium Level 8.7, Phosphorus Level 2.7, Magnesium Level 1.7L, Total Bilirubin 0.3, Aspartate Amino Transf (AST/SGOT) 15, Alanine Aminotransferase ( ALT/SGPT) 18, Alkaline Phosphatase 47, C-Reactive Protein, Quantitative 2.6H, Total Protein 6.8, Albumin 2.7L, Globulin 4.1, Albumin/Globulin Ratio 0.7L Current Medications Medications (Trade) Dose Ordered Sig/Pati Route PRN Reason Start Time Stop Time Status Last Admin Dose Admin Acetaminophen (Tylenol) 650 mg Q4H PRN ORAL fever 04/18/19 21:30 05/18/19 21:29 Albuterol/ Ipratropium (Albuterol/ Ipratropium) 3 ml EVERY 4 HOURS PRN HHN Shortness of Breath 04/18/19 21:30 04/23/19 21:29 Cefepime HCl 2 gm/ Dextrose 110 ml @ 220 mls/hr DAILY IV 04/19/19 09:00 04/26/19 08:59 04/20/19 09:52 Donepezil HCl (Aricept) 5 mg DAILY ORAL 04/19/19 09:00 05/19/19 08:59 04/20/19 09:50 Heparin Sodium (Porcine) (Heparin 5000 units/ml) 5,000 units EVERY 12 HOURS SUBQ 04/19/19 09:00 05/19/19 08:59 04/20/19 09:51 Memantine (Namenda) 5 mg DAILY ORAL 04/19/19 09:00 05/19/19 08:59 04/20/19 09:50 Mirtazapine (Remeron) 7.5 mg BEDTIME ORAL 04/19/19 21:00 05/19/19 20:59 04/19/19 20:36 Morphine Sulfate (Morphine Sulfate) 2 mg EVERY 4 HOURS PRN IVP Moderate Pain (Pain Scale 4-6) 04/18/19 21:30 04/25/19 21:29 Ondansetron HCl (Zofran) 4 mg Q6H PRN IVP Nausea & Vomiting 04/18/19 21:30 05/18/19 21:29 Phenazopyridine HCl (Pyridium) 100 mg DAILY PRN ORAL dysuria 04/18/19 21:30 05/18/19 21:29 Polyethylene Glycol (Miralax) 17 gm DAILYPRN PRN ORAL Constipation 04/18/19 21:30 05/18/19 21:29 Risperidone (RisperDAL) 0.5 mg BID ORAL 04/19/19 09:00 05/19/19 08:59 04/20/19 17:28 Sucralfate (Carafate) 1 gm FOUR TIMES A DAY ORAL 04/19/19 09:00 05/19/19 08:59 04/20/19 17:28 Tamsulosin HCl (Flomax) 0.4 mg DAILY ORAL 04/19/19 09:00 05/19/19 08:59 04/20/19 09:50 Temazepam (Restoril) 15 mg HSPRN PRN ORAL Insomnia 04/18/19 21:30 04/25/19 21:29 Katarzyna Escobedo MD Apr 20, 2019 18:27
--- NOTE | 2019-04-20 19:03 | NUR ---
HAND-OFF: Report given to NOC LIANA Christensen and orientee LIANA Chaudhari.
[2019-04-20 20:00] VITALS: BP 109/57
--- NOTE | 2019-04-20 20:04 | NUR ---
NURSE NOTES: Patient is in bed, alert and verbal.No acute distress noted. Patient has a f/c draining yellow urine. Fall precautions implemented. Bed low and locked position. Bed alarm is on two side rails up. call light within reach. Instructed patient to use call light for help before getting out of bed. will continue to monitor for safety of the patient.
--- NOTE | 2019-04-20 22:59 | NUR ---
NURSE NOTES: Pt is in bed, awake and verbal. No acute distress noted. Pt appears comfortable in bed. Pt has Case management consult to have rehab placement. Fall Precaution in place. bed locked low in position, side rails up and call light within reach. Pt instructed to call before getting out of bed. Pt will be monitored. Trainee, Matilda Chaudhari RN, will be assisting in the care of this patient.
[2019-04-21] VITALS (7 sets, daily range): BP systolic 94–113; BP diastolic 54–66
--- NOTE | 2019-04-21 03:15 | Consultation ---
DATE OF CONSULTATION: 04/20/2019 PSYCHOTHERAPY CONSULTATION AND PROGRESS NOTE CONSULTING PHYSICIAN: Apolinar Weaver PsyD. TREATING ATTENDING PHYSICIAN: Mg Aranda D.O. HISTORY OF PRESENT ILLNESS: This is an 79-year-old male patient. The patient was brought into the hospital for abdominal pain, weakness, and urinary tract infection. The patient has a history of schizophrenia. He is very irritable and confused. For these reasons, he was referred for psychotherapeutic services. I assessed the patient. The patient is from [facility]. The patient states that today he feels slightly better. He denies any suicidal or homicidal thoughts of ideation. He denies any auditory or visual hallucinations. The patient states that he is not depressed. He denies any feelings of anxiety and states that he wants to stay in the hospital to get treatment. He states that he does have some pain, but does not recall why he was brought into the hospital. Specifically, he does have episodes of confusion. This time, the patient is cooperative, able to communicate, and denies any suicidal or homicidal thoughts of ideation. PAST MEDICAL HISTORY: Includes history of renal insufficiency, BPH. ALLERGIES: The patient has no known drug allergies. SUBSTANCE USE HISTORY: The patient denies history of alcohol use, illicit substance use, or smoking cigarettes. PAST PSYCHIATRIC HISTORY: The patient has a history of schizophrenia and has been treated with psychotropic medications in the past. SOCIAL HISTORY: The patient is an 79-year-old male patient from . MENTAL STATUS EXAMINATION: The patient is alert and oriented to person and place. His mood is depressed. Affect is blunted. Thought process, disorganized. Thought content, confused. The patient has poor attention and concentration. Poor insight, judgment, and impulse control. DIAGNOSIS: Paranoid schizophrenia. PLAN: I provided the patient with: 1. Reality orientation, focused on improving cognitive function of the patient who is confused and disorganized. The patient is oriented x3. 2. Provided the patient with supportive psychotherapy, which would provide the patient means to positive coping skills addressing the patient's feelings of depression and helplessness in session, encouraging the patient to participate in treatment milieu, as well as medication management addressing the patient's feelings of depression and helplessness. medication compliance with positive coping skills . Apolinar Weaver PsyD. DR: MIKKI JOB#: [id number] CC:
--- NOTE | 2019-04-21 05:15 | NUR ---
NURSE NOTES: Pt is in bed, asleep. No acute distress noted.
--- NOTE | 2019-04-21 07:04 | NUR ---
HAND-OFF: Report given to Flori LUX.
--- NOTE | 2019-04-21 08:16 | NUR ---
NURSE NOTES: received pt from NOC LIANA Christensen and orientee RN Alexa Chaudhari. Pt is asleep, with no sign of distress. Roberts catheter in place, draining yellow urine to gravity, anchor in place. IV access LFA, saline locked. Bed locked at the lowest position possible, call light within easy reach, siderails up x2, on bed alarm. Will continue to monitor pt and follow up with the plan of care.
[2019-04-21 08:31] LABS: BASOPHILS % (AUTO) 0.8 % (0.0-2.0); EOSINOPHILS % (AUTO) 3.8 % (0.0-3.0); HEMATOCRIT 33.9 % (42.0-52.0); HEMOGLOBIN 11.4 G/DL (14.2-18.0); LYMPHOCYTES % (AUTO) 27.6 % (20.0-45.0); MEAN CORPUSCULAR VOLUME 85 FL (80-99); MONOCYTES % (AUTO) 4.7 % (1.0-10.0); NEUTROPHILS % (AUTO) 63.1 % (45.0-75.0); PLATELET COUNT 200 K/UL (150-450); RED CELL DISTRIBUTION WIDTH 11.8 % (11.6-14.8); WHITE BLOOD COUNT 6.4 K/UL (4.8-10.8)
[2019-04-21 09:04] LABS: ANION GAP 11 mmol/L (5-15); BLOOD UREA NITROGEN 18 mg/dL (7-18); CALCIUM 8.8 MG/DL (8.5-10.1); CARBON DIOXIDE 24 MMOL/L (21-32); CHLORIDE 105 MMOL/L (98-107); CREATININE 1.2 MG/DL (0.55-1.30); POTASSIUM 3.8 MMOL/L (3.5-5.1); SODIUM 140 MMOL/L (136-145)
--- NOTE | 2019-04-21 09:24 | General Progress Note ---
Assessment/Plan Problem List: (1) Pyelonephritis ICD Codes: N12 - Tubulo-interstitial nephritis, not specified as acute or chronic SNOMED: 03961926 (2) Renal insufficiency ICD Codes: N28.9 - Disorder of kidney and ureter, unspecified SNOMED: 151402015, 038357002 (3) Urinary retention ICD Codes: R33.9 - Retention of urine, unspecified SNOMED: 435972095 (4) Schizophrenia ICD Codes: F20.9 - Schizophrenia, unspecified SNOMED: 85324158 Qualifiers: Qualified Codes: F20.9 - Schizophrenia, unspecified (5) BPH (benign prostatic hyperplasia) ICD Codes: N40.0 - Benign prostatic hyperplasia without lower urinary tract symptoms SNOMED: 446106576 Qualifiers: Qualified Codes: N40.0 - Benign prostatic hyperplasia without lower urinary tract symptoms (6) Depression ICD Codes: F32.9 - Major depressive disorder, single episode, unspecified SNOMED: 93762466 Status: stable, progressing Assessment/Plan: uro f/u pt diet abx dc to aru Subjective Constitutional: Reports: weakness Allergies: Coded Allergies: No Known Allergies (Unverified , 03/18/19) All Systems: reviewed and negative except above Subjective sleepy in bed Objective Last 24 Hour Vital Signs Date Time Temp Pulse Resp B/P (MAP) Pulse Ox O2 Delivery O2 Flow Rate FiO2 04/21/19 08:11 60 20 97 Room Air 21 04/21/19 08:10 106/60 (75) 04/21/19 08:00 98.6 79 16 97 04/21/19 04:00 98.1 57 18 112/64 (80) 96 04/21/19 04:00 98.1 57 18 112/64 (80) 96 04/21/19 00:00 98.0 56 18 99/54 (69) 96 04/20/19 22:15 Room Air 04/20/19 20:00 98.3 55 18 109/57 (74) 96 04/20/19 19:40 64 18 96 Room Air 21 04/20/19 16:00 97.8 67 19 110/61 (77) 95 04/20/19 12:00 96.1 65 19 108/59 (75) 94 Intake and Output 04/20/19 04/21/19 19:00 07:00 Intake Total 1010 ml Output Total 850 ml 600 ml Balance 160 ml -600 ml IV Total 110 ml Other 900 ml Output Urine Total 850 ml 600 ml Laboratory Tests 04/21/19 08:00: White Blood Count 6.4, Red Blood Count 4.00L, Hemoglobin 11.4L, Hematocrit 33.9L , Mean Corpuscular Volume 85, Mean Corpuscular Hemoglobin 28.4, Mean Corpuscular Hemoglobin Concent 33.6, Red Cell Distribution Width 11.8, Platelet Count 200, Mean Platelet Volume 6.0L, Neutrophils (%) (Auto) 63.1, Lymphocytes ( %) (Auto) 27.6, Monocytes (%) (Auto) 4.7, Eosinophils (%) (Auto) 3.8H, Basophils (%) (Auto) 0.8, Sodium Level 140, Potassium Level 3.8, Chloride Level 105, Carbon Dioxide Level 24, Anion Gap 11, Blood Urea Nitrogen 18, Creatinine 1.2, Estimat Glomerular Filtration Rate , Glucose Level 114H, Calcium Level 8.8 Height (Feet): 5 Height (Inches): 6.00 Weight (Pounds): 148 General Appearance: lethargic EENT: normal ENT inspection Neck: normal alignment Cardiovascular: normal peripheral pulses, normal rate, regular rhythm Respiratory/Chest: chest wall non-tender, lungs clear, normal breath sounds Abdomen: normal bowel sounds, non tender, soft Extremities: normal inspection Edema: no edema noted Arm (L), no edema noted Arm (R), no edema noted Leg (L), no edema noted Leg (R), no edema noted Pedal (L), no edema noted Pedal (R), no edema noted Generalized Neurologic: responsive, motor weakness Skin: normal pigmentation, warm/dry Mg Aranda DO Apr 21, 2019 09:24
[2019-04-21] MEDS: Sucralfate 1gm tab ORAL SCH ×4 (09:45→21:05)
[2019-04-21] MEDS: Memantine 10mg tab ORAL SCH (09:45)
[2019-04-21] MEDS: Tamsulosin 0.4mg cap ORAL SCH (09:46)
[2019-04-21] MEDS: Cefepime HCl 2 GM in D5W 110 ML IV SCH (09:46)
[2019-04-21] MEDS: Donepezil 5mg Tab ORAL SCH (09:46)
[2019-04-21] MEDS: Heparin 5000 units/ml inj SUBQ SCH ×2 (09:47→21:06)
--- NOTE | 2019-04-21 10:11 | NUR ---
DISCHARGE PLANNING FAXED CLINICALS TO [facility] T: [phone] F: [phone] IF PATIENT AGREES
--- NOTE | 2019-04-21 13:29 | Infectious Diseases Prog Note ---
Assessment/Plan Assessment/Plan Assessment/Plan: 79 yo male with PMHx of Dementia, BPH with alexandra, and Afib who was sent to the ED on 04/18/19 for abdominal pain x 1 day. Abdominal pain Probable pyelonephritis UA Positive CT Abd/Pel - Large amount of stool in the rectum. Fecal impaction should be considered. Alexandra catheter with some gas in the bladder. The bladder appears decompressed. There is question of some mild infiltration of the fat adjacent to the bladder. Cystitis cannot be excluded. Bilateral moderate hydronephrosis without evidence for ureteral stone. This may be related to a prior bladder outlet obstruction. The prostate gland is enlarged measuring 5.5 x 4.1 cm in transverse dimensions. Mild bilateral perinephric stranding which may be related to chronic scarring. An acute infectious/inflammatory process such as acute pyelonephritis cannot be excluded. Correlation with clinical and laboratory findings is recommended. The previously seen left inguinal hernia is no longer visualized. Low-density areas are seen in the left inguinal hernia with infiltration of the adjacent fat which are likely related to postsurgical changes. An infectious process cannot be excluded radiographically. Prominent nonspecific right inguinal lymph node measuring 1.9 x 1.3 cm in transverse dimensions. Urine Cx 04/18/19 - S. epi Afebrile Leukocytosis, SP Dementia BPH with alexandra Afib HLD left inguinal hernia repair with mesh on 03/26/2019. PLAN -Switch Cefepime #3/7 to PO Bactrim - f/u Urine Cx and blood Cx - Monitor CBC and Temps Thank you for this consult. We will continue to follow the patient during this hospitalization. Subjective Allergies: Coded Allergies: No Known Allergies (Unverified , 03/18/19) Objective Vital Signs Last 24 Hour Vital Signs Date Time Temp Pulse Resp B/P (MAP) Pulse Ox O2 Delivery O2 Flow Rate FiO2 04/21/19 12:00 97.6 71 17 106/60 (75) 100 04/21/19 09:00 Room Air 04/21/19 08:11 60 20 97 Room Air 21 04/21/19 08:10 106/60 (75) 04/21/19 08:00 97.5 63 18 113/66 (82) 98 04/21/19 04:00 98.1 57 18 112/64 (80) 96 04/21/19 04:00 98.1 57 18 112/64 (80) 96 04/21/19 00:00 98.0 56 18 99/54 (69) 96 04/20/19 22:15 Room Air 04/20/19 20:00 98.3 55 18 109/57 (74) 96 04/20/19 19:40 64 18 96 Room Air 21 04/20/19 16:00 97.8 67 19 110/61 (77) 95 Height (Feet): 5 Height (Inches): 6.00 Weight (Pounds): 150 Objective Gen: NAD laying in bed HEENT: NCAT, MMM, EOMI, PERRL, following with eyes NECK: upple, No LAD, No JVD LUNGS: CTAB, No W/C, No Accessory muscle use CARDS: RRR, S1, S2, No M/R/G, ABD: Soft, NT, Mild distention, No R/G, + BS, No HSM, No Masses : Deferred Ext: C/C/E, Pulses 2+ B/L (DP, Rad): NEURO: A/O x 0, No following commands Strength and Sensation Grossly intact SKIN: Warm/dry, No rashes Microbiology Date/Time Source Procedure Growth Status 04/19/19 05:50 Blood Blood Culture - Preliminary NO GROWTH AFTER 24 HOURS Resulted 04/19/19 05:50 Blood Blood Culture - Preliminary NO GROWTH AFTER 24 HOURS Resulted 04/18/19 21:05 Urine,Clean Catch Urine Culture - Final Staphylococcus Epidermidis Complete 04/18/19 23:00 Rectum - Final NO CARBAPENEM-RESISTANT ENTEROBACTERI... Complete 04/18/19 23:00 Rectum VRE Culture - Final NO VANCOMYCIN RESISTANT ENTEROCOCCUS ... Complete Laboratory Tests Test 04/21/19 08:00 White Blood Count 6.4 K/UL (4.8-10.8) Red Blood Count 4.00 M/UL (4.70-6.10) L Hemoglobin 11.4 G/DL (14.2-18.0) L Hematocrit 33.9 % (42.0-52.0) L Mean Corpuscular Volume 85 FL (80-99) Mean Corpuscular Hemoglobin 28.4 PG (27.0-31.0) Mean Corpuscular Hemoglobin Concent 33.6 G/DL (32.0-36.0) Red Cell Distribution Width 11.8 % (11.6-14.8) Platelet Count 200 K/UL (150-450) Mean Platelet Volume 6.0 FL (6.5-10.1) L Neutrophils (%) (Auto) 63.1 % (45.0-75.0) Lymphocytes (%) (Auto) 27.6 % (20.0-45.0) Monocytes (%) (Auto) 4.7 % (1.0-10.0) Eosinophils (%) (Auto) 3.8 % (0.0-3.0) H Basophils (%) (Auto) 0.8 % (0.0-2.0) Sodium Level 140 MMOL/L (136-145) Potassium Level 3.8 MMOL/L (3.5-5.1) Chloride Level 105 MMOL/L (98-107) Carbon Dioxide Level 24 MMOL/L (21-32) Anion Gap 11 mmol/L (5-15) Blood Urea Nitrogen 18 mg/dL (7-18) Creatinine 1.2 MG/DL (0.55-1.30) Estimat Glomerular Filtration Rate mL/min (>60) Glucose Level 114 MG/DL (74-106) H Calcium Level 8.8 MG/DL (8.5-10.1) Current Medications Medications (Trade) Dose Ordered Sig/Pati Route PRN Reason Start Time Stop Time Status Last Admin Dose Admin Acetaminophen (Tylenol) 650 mg Q4H PRN ORAL fever 04/18/19 21:30 05/18/19 21:29 Albuterol/ Ipratropium (Albuterol/ Ipratropium) 3 ml EVERY 4 HOURS PRN HHN Shortness of Breath 04/18/19 21:30 04/23/19 21:29 Cefepime HCl 2 gm/ Dextrose 110 ml @ 220 mls/hr DAILY IV 04/19/19 09:00 04/26/19 08:59 04/21/19 09:46 Donepezil HCl (Aricept) 5 mg DAILY ORAL 04/19/19 09:00 05/19/19 08:59 04/21/19 09:46 Heparin Sodium (Porcine) (Heparin 5000 units/ml) 5,000 units EVERY 12 HOURS SUBQ 04/19/19 09:00 05/19/19 08:59 04/21/19 09:47 Memantine (Namenda) 5 mg DAILY ORAL 04/19/19 09:00 05/19/19 08:59 04/21/19 09:45 Mirtazapine (Remeron) 7.5 mg BEDTIME ORAL 04/19/19 21:00 05/19/19 20:59 04/20/19 21:09 Morphine Sulfate (Morphine Sulfate) 2 mg EVERY 4 HOURS PRN IVP Moderate Pain (Pain Scale 4-6) 04/18/19 21:30 04/25/19 21:29 Ondansetron HCl (Zofran) 4 mg Q6H PRN IVP Nausea & Vomiting 04/18/19 21:30 05/18/19 21:29 Phenazopyridine HCl (Pyridium) 100 mg DAILY PRN ORAL dysuria 04/18/19 21:30 05/18/19 21:29 Polyethylene Glycol (Miralax) 17 gm DAILYPRN PRN ORAL Constipation 04/18/19 21:30 05/18/19 21:29 Risperidone (RisperDAL) 0.5 mg BID ORAL 04/19/19 09:00 05/19/19 08:59 04/21/19 09:45 Sucralfate (Carafate) 1 gm FOUR TIMES A DAY ORAL 04/19/19 09:00 05/19/19 08:59 04/21/19 13:09 Tamsulosin HCl (Flomax) 0.4 mg DAILY ORAL 04/19/19 09:00 05/19/19 08:59 04/21/19 09:46 Temazepam (Restoril) 15 mg HSPRN PRN ORAL Insomnia 04/18/19 21:30 04/25/19 21:29 Smita Seymour M.D. Apr 21, 2019 13:29
--- NOTE | 2019-04-21 14:04 | Pulmonology Progress Note ---
Assessment/Plan Problems: (1) Urinary retention (2) Pyelonephritis (3) BPH (benign prostatic hyperplasia) (4) Schizophrenia Assessment/Plan wbc lower bun/creatinine better iv abx symptomatic treatment check electrolytes pt/ot All medications and treatment were reviewed. Subjective ROS Limited/Unobtainable: No Constitutional: Reports: no symptoms HEENT: Repors: no symptoms Respiratory: Reports: no symptoms Allergies: Coded Allergies: No Known Allergies (Unverified , 03/18/19) Objective Last 24 Hour Vital Signs Date Time Temp Pulse Resp B/P (MAP) Pulse Ox O2 Delivery O2 Flow Rate FiO2 04/21/19 12:00 97.6 71 17 106/60 (75) 100 04/21/19 09:00 Room Air 04/21/19 08:11 60 20 97 Room Air 21 04/21/19 08:10 106/60 (75) 04/21/19 08:00 97.5 63 18 113/66 (82) 98 04/21/19 04:00 98.1 57 18 112/64 (80) 96 04/21/19 04:00 98.1 57 18 112/64 (80) 96 04/21/19 00:00 98.0 56 18 99/54 (69) 96 04/20/19 22:15 Room Air 04/20/19 20:00 98.3 55 18 109/57 (74) 96 04/20/19 19:40 64 18 96 Room Air 21 04/20/19 16:00 97.8 67 19 110/61 (77) 95 Intake and Output 04/20/19 04/21/19 19:00 07:00 Intake Total 1010 ml Output Total 850 ml 600 ml Balance 160 ml -600 ml IV Total 110 ml Other 900 ml Output Urine Total 850 ml 600 ml General Appearance: WD/WN HEENT: normocephalic, atraumatic Respiratory/Chest: lungs clear Abdomen: normal bowel sounds, no organomegaly Genitourinary: normal external genitalia Extremities: no clubbing Microbiology Date/Time Source Procedure Growth Status 04/19/19 05:50 Blood Blood Culture - Preliminary NO GROWTH AFTER 24 HOURS Resulted 04/19/19 05:50 Blood Blood Culture - Preliminary NO GROWTH AFTER 24 HOURS Resulted 04/18/19 21:05 Urine,Clean Catch Urine Culture - Final Staphylococcus Epidermidis Complete 04/18/19 23:00 Rectum - Final NO CARBAPENEM-RESISTANT ENTEROBACTERI... Complete 04/18/19 23:00 Rectum VRE Culture - Final NO VANCOMYCIN RESISTANT ENTEROCOCCUS ... Complete Laboratory Tests 04/21/19 08:00: White Blood Count 6.4, Red Blood Count 4.00L, Hemoglobin 11.4L, Hematocrit 33.9L , Mean Corpuscular Volume 85, Mean Corpuscular Hemoglobin 28.4, Mean Corpuscular Hemoglobin Concent 33.6, Red Cell Distribution Width 11.8, Platelet Count 200, Mean Platelet Volume 6.0L, Neutrophils (%) (Auto) 63.1, Lymphocytes ( %) (Auto) 27.6, Monocytes (%) (Auto) 4.7, Eosinophils (%) (Auto) 3.8H, Basophils (%) (Auto) 0.8, Sodium Level 140, Potassium Level 3.8, Chloride Level 105, Carbon Dioxide Level 24, Anion Gap 11, Blood Urea Nitrogen 18, Creatinine 1.2, Estimat Glomerular Filtration Rate , Glucose Level 114H, Calcium Level 8.8 Current Medications Medications (Trade) Dose Ordered Sig/Pati Route PRN Reason Start Time Stop Time Status Last Admin Dose Admin Acetaminophen (Tylenol) 650 mg Q4H PRN ORAL fever 04/18/19 21:30 05/18/19 21:29 Albuterol/ Ipratropium (Albuterol/ Ipratropium) 3 ml EVERY 4 HOURS PRN HHN Shortness of Breath 04/18/19 21:30 04/23/19 21:29 Donepezil HCl (Aricept) 5 mg DAILY ORAL 04/19/19 09:00 05/19/19 08:59 04/21/19 09:46 Heparin Sodium (Porcine) (Heparin 5000 units/ml) 5,000 units EVERY 12 HOURS SUBQ 04/19/19 09:00 05/19/19 08:59 04/21/19 09:47 Memantine (Namenda) 5 mg DAILY ORAL 04/19/19 09:00 05/19/19 08:59 04/21/19 09:45 Mirtazapine (Remeron) 7.5 mg BEDTIME ORAL 04/19/19 21:00 05/19/19 20:59 04/20/19 21:09 Morphine Sulfate (Morphine Sulfate) 2 mg EVERY 4 HOURS PRN IVP Moderate Pain (Pain Scale 4-6) 04/18/19 21:30 04/25/19 21:29 Ondansetron HCl (Zofran) 4 mg Q6H PRN IVP Nausea & Vomiting 04/18/19 21:30 05/18/19 21:29 Phenazopyridine HCl (Pyridium) 100 mg DAILY PRN ORAL dysuria 04/18/19 21:30 05/18/19 21:29 Polyethylene Glycol (Miralax) 17 gm DAILYPRN PRN ORAL Constipation 04/18/19 21:30 05/18/19 21:29 Risperidone (RisperDAL) 0.5 mg BID ORAL 04/19/19 09:00 05/19/19 08:59 04/21/19 09:45 Sucralfate (Carafate) 1 gm FOUR TIMES A DAY ORAL 04/19/19 09:00 05/19/19 08:59 04/21/19 13:09 Tamsulosin HCl (Flomax) 0.4 mg DAILY ORAL 04/19/19 09:00 05/19/19 08:59 04/21/19 09:46 Temazepam (Restoril) 15 mg HSPRN PRN ORAL Insomnia 04/18/19 21:30 04/25/19 21:29 Trimethoprim/ Sulfamethoxazole (Bactrim-DS) 1 tab Q12HR ORAL 04/21/19 21:00 04/28/19 20:59 Katarzyna Escobedo MD Apr 21, 2019 14:04
--- NOTE | 2019-04-21 17:26 | NUR ---
CASE MANAGEMENT:REVIEW 79 YR OLD MALE BIBA FROM [facility]; ABDOMINAL PAIN SI: PYELONEPHRITIS. RENAL INSUFF 98.2 99 24 114/84 94% ON RA WBC+14.8 BUN+29 CR+1.6 IS: 1L NS BOLUS X2 IV ROCEPHIN URINE CX BLOOD CX CT ABD/PELVIS : TO MED/SURG [facility]
--- NOTE | 2019-04-21 19:35 | NUR ---
HAND-OFF: Report given to LIANA Brown.
--- NOTE | 2019-04-21 19:59 | NUR ---
NURSE NOTES: Received patient comfortably sleeping.
[2019-04-21] MEDS: Bactrim-DS 1 tab ORAL SCH (21:05)
[2019-04-22 00:10] VITALS: BP 100/60
[2019-04-22 04:00] VITALS: BP 118/67
[2019-04-22 06:54] LABS: ALANINE AMINOTRANSFERASE 15 U/L (12-78); ALBUMIN 2.7 G/DL (3.4-5.0); ALBUMIN/GLOBULIN RATIO 0.6 (1.0-2.7); ALKALINE PHOSPHATASE 47 U/L (46-116); ANION GAP 11 mmol/L (5-15); ASPARTATE AMINO TRANSFERASE 15 U/L (15-37); BILIRUBIN,TOTAL 0.3 MG/DL (0.2-1.0); BLOOD UREA NITROGEN 19 mg/dL (7-18); CALCIUM 8.5 MG/DL (8.5-10.1); CARBON DIOXIDE 24 MMOL/L (21-32); CHLORIDE 108 MMOL/L (98-107); CREATININE 1.3 MG/DL (0.55-1.30); POTASSIUM 3.8 MMOL/L (3.5-5.1); SODIUM 143 MMOL/L (136-145)
--- NOTE | 2019-04-22 07:22 | NUR ---
HAND-OFF: Report given to Qamar Domingo RN.
--- NOTE | 2019-04-22 07:23 | NUR ---
NURSE NOTES: Received pt in bed, AAOx3. Room air. No c/o of pain/distress. IV on L FA 20g intact and patent, with saline lock. Side rail x2. Bed in the lowest, locked, and alarm on. Call light within reach. Will continue to monitor
[2019-04-22 08:00] VITALS: BP 108/62
[2019-04-22] MEDS: Memantine 10mg tab ORAL SCH (08:11)
[2019-04-22] MEDS: Sucralfate 1gm tab ORAL SCH ×2 (08:11→13:00)
[2019-04-22] MEDS: Donepezil 5mg Tab ORAL SCH (08:11)
[2019-04-22] MEDS: Tamsulosin 0.4mg cap ORAL SCH (08:11)
[2019-04-22] MEDS: Bactrim-DS 1 tab ORAL SCH (08:11)
[2019-04-22] MEDS: Heparin 5000 units/ml inj SUBQ SCH (08:13)
--- NOTE | 2019-04-22 08:42 | NUR ---
DISCHARGE PLANNING PATIENT WAS REFERRED TO [facility] YESTERDAY AND WAS DECLINED...DR BENSON WAS NOTIFIED FAXED CLINICALS TO [facility] T: [phone] F: [phone] WAITING FOR ROOM ASSIGNMENT AND DISCHARGE ORDER Addendum: 04/22/19 at 0843 by IRVIN ENAMORADO LVN LVN BED ASSIGNMENT AT [facility] IS 14C
--- NOTE | 2019-04-22 11:33 | Pulmonology Progress Note ---
Assessment/Plan Problems: (1) Urinary retention (2) Pyelonephritis (3) BPH (benign prostatic hyperplasia) (4) Schizophrenia Assessment/Plan wbc lower bun/creatinine better iv abx symptomatic treatment check electrolytes pt/ot dc palnning All medications and treatment were reviewed. Subjective ROS Limited/Unobtainable: No Constitutional: Reports: no symptoms HEENT: Repors: no symptoms Allergies: Coded Allergies: No Known Allergies (Unverified , 03/18/19) Objective Last 24 Hour Vital Signs Date Time Temp Pulse Resp B/P (MAP) Pulse Ox O2 Delivery O2 Flow Rate FiO2 04/22/19 09:00 Room Air 04/22/19 08:00 98.0 72 19 108/62 (77) 100 04/22/19 07:51 70 4 97 Room Air 21 04/22/19 04:00 98.1 61 18 118/67 (84) 95 04/22/19 00:10 99.1 87 19 100/60 (73) 93 04/21/19 20:30 62 20 95 Room Air 21 04/21/19 20:18 Room Air 04/21/19 20:00 99.1 75 17 106/55 (72) 93 04/21/19 16:00 97.9 87 17 94/61 (72) 94 04/21/19 12:00 97.6 71 17 106/60 (75) 100 Intake and Output 04/21/19 04/22/19 19:00 07:00 Intake Total 110 ml 400 ml Output Total 650 ml 780 ml Balance -540 ml -380 ml Intake Oral 400 ml IV Total 110 ml Output Urine Total 650 ml 780 ml General Appearance: WD/WN HEENT: normocephalic, anicteric Cardiovascular: normal peripheral pulses, normal rate Abdomen: normal bowel sounds, soft, non tender Genitourinary: normal external genitalia Skin: no ulcers Laboratory Tests 04/22/19 04:55: Sodium Level 143, Potassium Level 3.8, Chloride Level 108H, Carbon Dioxide Level 24, Anion Gap 11, Blood Urea Nitrogen 19H, Creatinine 1.3, Estimat Glomerular Filtration Rate , Glucose Level 96, Calcium Level 8.5, Total Bilirubin 0.3, Aspartate Amino Transf (AST/SGOT) 15, Alanine Aminotransferase ( ALT/SGPT) 15, Alkaline Phosphatase 47, Total Protein 6.9, Albumin 2.7L, Globulin 4.2, Albumin/Globulin Ratio 0.6L Current Medications Medications (Trade) Dose Ordered Sig/Pati Route PRN Reason Start Time Stop Time Status Last Admin Dose Admin Acetaminophen (Tylenol) 650 mg Q4H PRN ORAL fever 04/18/19 21:30 05/18/19 21:29 Albuterol/ Ipratropium (Albuterol/ Ipratropium) 3 ml EVERY 4 HOURS PRN HHN Shortness of Breath 04/18/19 21:30 04/23/19 21:29 Donepezil HCl (Aricept) 5 mg DAILY ORAL 04/19/19 09:00 05/19/19 08:59 04/22/19 08:11 Heparin Sodium (Porcine) (Heparin 5000 units/ml) 5,000 units EVERY 12 HOURS SUBQ 04/19/19 09:00 05/19/19 08:59 04/22/19 08:13 Memantine (Namenda) 5 mg DAILY ORAL 04/19/19 09:00 05/19/19 08:59 04/22/19 08:11 Mirtazapine (Remeron) 7.5 mg BEDTIME ORAL 04/19/19 21:00 05/19/19 20:59 04/21/19 21:05 Morphine Sulfate (Morphine Sulfate) 2 mg EVERY 4 HOURS PRN IVP Moderate Pain (Pain Scale 4-6) 04/18/19 21:30 04/25/19 21:29 Ondansetron HCl (Zofran) 4 mg Q6H PRN IVP Nausea & Vomiting 04/18/19 21:30 05/18/19 21:29 Phenazopyridine HCl (Pyridium) 100 mg DAILY PRN ORAL dysuria 04/18/19 21:30 05/18/19 21:29 Polyethylene Glycol (Miralax) 17 gm DAILYPRN PRN ORAL Constipation 04/18/19 21:30 05/18/19 21:29 Risperidone (RisperDAL) 0.5 mg BID ORAL 04/19/19 09:00 05/19/19 08:59 04/22/19 08:11 Sucralfate (Carafate) 1 gm FOUR TIMES A DAY ORAL 04/19/19 09:00 05/19/19 08:59 04/22/19 08:11 Tamsulosin HCl (Flomax) 0.4 mg DAILY ORAL 04/19/19 09:00 05/19/19 08:59 04/22/19 08:11 Temazepam (Restoril) 15 mg HSPRN PRN ORAL Insomnia 04/18/19 21:30 04/25/19 21:29 Trimethoprim/ Sulfamethoxazole (Bactrim-DS) 1 tab Q12HR ORAL 04/21/19 21:00 04/28/19 20:59 04/22/19 08:11 Katarzyna Escobedo MD Apr 22, 2019 11:33
--- NOTE | 2019-04-22 11:39 | Infectious Diseases Prog Note ---
Assessment/Plan Assessment/Plan Assessment/Plan: 79 yo male with PMHx of Dementia, BPH with alexandra, and Afib who was sent to the ED on 04/18/19 for abdominal pain x 1 day. Abdominal pain Probable pyelonephritis UA Positive CT Abd/Pel - Large amount of stool in the rectum. Fecal impaction should be considered. Alexandra catheter with some gas in the bladder. The bladder appears decompressed. There is question of some mild infiltration of the fat adjacent to the bladder. Cystitis cannot be excluded. Bilateral moderate hydronephrosis without evidence for ureteral stone. This may be related to a prior bladder outlet obstruction. The prostate gland is enlarged measuring 5.5 x 4.1 cm in transverse dimensions. Mild bilateral perinephric stranding which may be related to chronic scarring. An acute infectious/inflammatory process such as acute pyelonephritis cannot be excluded. Correlation with clinical and laboratory findings is recommended. The previously seen left inguinal hernia is no longer visualized. Low-density areas are seen in the left inguinal hernia with infiltration of the adjacent fat which are likely related to postsurgical changes. An infectious process cannot be excluded radiographically. Prominent nonspecific right inguinal lymph node measuring 1.9 x 1.3 cm in transverse dimensions. Urine Cx 04/18/19 - S. epi Afebrile Leukocytosis, SP Dementia BPH with alexandra Afib HLD left inguinal hernia repair with mesh on 03/26/2019. PLAN -Continue PO Bactrim #2/5 -04/21 SP Cefepime #3 - f/u Urine Cx and blood Cx - Monitor CBC and Temps Thank you for this consult. We will continue to follow the patient during this hospitalization. Subjective Allergies: Coded Allergies: No Known Allergies (Unverified , 03/18/19) Subjective afebrile no leukocytosis Bcx NTD Objective Vital Signs Last 24 Hour Vital Signs Date Time Temp Pulse Resp B/P (MAP) Pulse Ox O2 Delivery O2 Flow Rate FiO2 04/22/19 09:00 Room Air 04/22/19 08:00 98.0 72 19 108/62 (77) 100 04/22/19 07:51 70 4 97 Room Air 21 04/22/19 04:00 98.1 61 18 118/67 (84) 95 04/22/19 00:10 99.1 87 19 100/60 (73) 93 04/21/19 20:30 62 20 95 Room Air 21 04/21/19 20:18 Room Air 04/21/19 20:00 99.1 75 17 106/55 (72) 93 04/21/19 16:00 97.9 87 17 94/61 (72) 94 04/21/19 12:00 97.6 71 17 106/60 (75) 100 Height (Feet): 5 Height (Inches): 6.00 Weight (Pounds): 149 Objective Gen: NAD laying in bed HEENT: NCAT, MMM, EOMI, PERRL, following with eyes NECK: upple, No LAD, No JVD LUNGS: CTAB, No W/C, No Accessory muscle use CARDS: RRR, S1, S2, No M/R/G, ABD: Soft, NT, Mild distention, No R/G, + BS, No HSM, No Masses : Deferred Ext: C/C/E, Pulses 2+ B/L (DP, Rad): NEURO: A/O x 0, No following commands Strength and Sensation Grossly intact SKIN: Warm/dry, No rashes Laboratory Tests Test 04/22/19 04:55 Sodium Level 143 MMOL/L (136-145) Potassium Level 3.8 MMOL/L (3.5-5.1) Chloride Level 108 MMOL/L (98-107) H Carbon Dioxide Level 24 MMOL/L (21-32) Anion Gap 11 mmol/L (5-15) Blood Urea Nitrogen 19 mg/dL (7-18) H Creatinine 1.3 MG/DL (0.55-1.30) Estimat Glomerular Filtration Rate mL/min (>60) Glucose Level 96 MG/DL (74-106) Calcium Level 8.5 MG/DL (8.5-10.1) Total Bilirubin 0.3 MG/DL (0.2-1.0) Aspartate Amino Transf (AST/SGOT) 15 U/L (15-37) Alanine Aminotransferase (ALT/SGPT) 15 U/L (12-78) Alkaline Phosphatase 47 U/L (46-116) Total Protein 6.9 G/DL (6.4-8.2) Albumin 2.7 G/DL (3.4-5.0) L Globulin 4.2 g/dL Albumin/Globulin Ratio 0.6 (1.0-2.7) L Current Medications Medications (Trade) Dose Ordered Sig/Pati Route PRN Reason Start Time Stop Time Status Last Admin Dose Admin Acetaminophen (Tylenol) 650 mg Q4H PRN ORAL fever 04/18/19 21:30 05/18/19 21:29 Albuterol/ Ipratropium (Albuterol/ Ipratropium) 3 ml EVERY 4 HOURS PRN HHN Shortness of Breath 04/18/19 21:30 04/23/19 21:29 Donepezil HCl (Aricept) 5 mg DAILY ORAL 04/19/19 09:00 05/19/19 08:59 04/22/19 08:11 Heparin Sodium (Porcine) (Heparin 5000 units/ml) 5,000 units EVERY 12 HOURS SUBQ 04/19/19 09:00 05/19/19 08:59 04/22/19 08:13 Memantine (Namenda) 5 mg DAILY ORAL 04/19/19 09:00 05/19/19 08:59 04/22/19 08:11 Mirtazapine (Remeron) 7.5 mg BEDTIME ORAL 04/19/19 21:00 05/19/19 20:59 04/21/19 21:05 Morphine Sulfate (Morphine Sulfate) 2 mg EVERY 4 HOURS PRN IVP Moderate Pain (Pain Scale 4-6) 04/18/19 21:30 04/25/19 21:29 Ondansetron HCl (Zofran) 4 mg Q6H PRN IVP Nausea & Vomiting 04/18/19 21:30 05/18/19 21:29 Phenazopyridine HCl (Pyridium) 100 mg DAILY PRN ORAL dysuria 04/18/19 21:30 05/18/19 21:29 Polyethylene Glycol (Miralax) 17 gm DAILYPRN PRN ORAL Constipation 04/18/19 21:30 05/18/19 21:29 Risperidone (RisperDAL) 0.5 mg BID ORAL 04/19/19 09:00 05/19/19 08:59 04/22/19 08:11 Sucralfate (Carafate) 1 gm FOUR TIMES A DAY ORAL 04/19/19 09:00 05/19/19 08:59 04/22/19 08:11 Tamsulosin HCl (Flomax) 0.4 mg DAILY ORAL 04/19/19 09:00 05/19/19 08:59 04/22/19 08:11 Temazepam (Restoril) 15 mg HSPRN PRN ORAL Insomnia 04/18/19 21:30 04/25/19 21:29 Trimethoprim/ Sulfamethoxazole (Bactrim-DS) 1 tab Q12HR ORAL 04/21/19 21:00 04/28/19 20:59 04/22/19 08:11 Smita Seymour M.D. Apr 22, 2019 11:39
--- NOTE | 2019-04-22 11:44 | NUR ---
DISCHARGE PLANNED PATIENT IS DISCHARGING TO [facility] ROOM 14C SKILLED T: [phone] FOR NURSE TO NURSE REPORT [facility] HAS BEEN ARRANGED FOR [address] [employer]
[2019-04-22] MEDS ORDERED: BACTRIM-DS1 EA ORAL (11:59)
[2019-04-22 12:00] VITALS: BP 109/67
--- NOTE | 2019-04-22 14:12 | NUR ---
NURSE NOTES: Pt was discharged to [facility] via ambulance in stable condition. Report was given to Angelica. ID and IV was removed. No s/s of infection on the removal site. Pt has no belongings. Discharge instructions and prescriptions were given. Picture was taken on the sacral area.
--- NOTE | 2019-04-22 14:13 | General Progress Note ---
Assessment/Plan Problem List: (1) Pyelonephritis ICD Codes: N12 - Tubulo-interstitial nephritis, not specified as acute or chronic SNOMED: 90491900 (2) Renal insufficiency ICD Codes: N28.9 - Disorder of kidney and ureter, unspecified SNOMED: 194507779, 775185089 (3) Urinary retention ICD Codes: R33.9 - Retention of urine, unspecified SNOMED: 023407789 (4) Schizophrenia ICD Codes: F20.9 - Schizophrenia, unspecified SNOMED: 16139375 Qualifiers: Qualified Codes: F20.9 - Schizophrenia, unspecified (5) BPH (benign prostatic hyperplasia) ICD Codes: N40.0 - Benign prostatic hyperplasia without lower urinary tract symptoms SNOMED: 948052604 Qualifiers: Qualified Codes: N40.0 - Benign prostatic hyperplasia without lower urinary tract symptoms (6) Depression ICD Codes: F32.9 - Major depressive disorder, single episode, unspecified SNOMED: 51910763 Status: stable, progressing Assessment/Plan: uro f/u pt diet abx dc to snf Subjective Constitutional: Reports: weakness Allergies: Coded Allergies: No Known Allergies (Unverified , 03/18/19) All Systems: reviewed and negative except above Subjective calm in bed Objective Last 24 Hour Vital Signs Date Time Temp Pulse Resp B/P (MAP) Pulse Ox O2 Delivery O2 Flow Rate FiO2 04/22/19 12:00 98.2 70 18 109/67 (81) 99 04/22/19 09:00 Room Air 04/22/19 08:00 98.0 72 19 108/62 (77) 100 04/22/19 07:51 70 4 97 Room Air 21 04/22/19 04:00 98.1 61 18 118/67 (84) 95 04/22/19 00:10 99.1 87 19 100/60 (73) 93 04/21/19 20:30 62 20 95 Room Air 21 04/21/19 20:18 Room Air 04/21/19 20:00 99.1 75 17 106/55 (72) 93 04/21/19 16:00 97.9 87 17 94/61 (72) 94 Intake and Output 04/21/19 04/22/19 19:00 07:00 Intake Total 110 ml 400 ml Output Total 650 ml 780 ml Balance -540 ml -380 ml Intake Oral 400 ml IV Total 110 ml Output Urine Total 650 ml 780 ml Laboratory Tests 04/22/19 04:55: Sodium Level 143, Potassium Level 3.8, Chloride Level 108H, Carbon Dioxide Level 24, Anion Gap 11, Blood Urea Nitrogen 19H, Creatinine 1.3, Estimat Glomerular Filtration Rate , Glucose Level 96, Calcium Level 8.5, Total Bilirubin 0.3, Aspartate Amino Transf (AST/SGOT) 15, Alanine Aminotransferase ( ALT/SGPT) 15, Alkaline Phosphatase 47, Total Protein 6.9, Albumin 2.7L, Globulin 4.2, Albumin/Globulin Ratio 0.6L Height (Feet): 5 Height (Inches): 6.00 Weight (Pounds): 149 General Appearance: lethargic EENT: normal ENT inspection Neck: normal alignment Cardiovascular: normal peripheral pulses, normal rate, regular rhythm Respiratory/Chest: chest wall non-tender, lungs clear, normal breath sounds Abdomen: normal bowel sounds, non tender, soft Extremities: normal inspection Edema: no edema noted Arm (L), no edema noted Arm (R), no edema noted Leg (L), no edema noted Leg (R), no edema noted Pedal (L), no edema noted Pedal (R), no edema noted Generalized Neurologic: motor weakness Skin: normal pigmentation, warm/dry Mg Aranda DO Apr 22, 2019 14:13
--- NOTE | 2019-04-22 22:00 | Consultation ---
DATE OF CONSULTATION: 04/22/2019 INITIAL PSYCHIATRIC EVALUATION CONSULTING PHYSICIAN: Valentino Bryan M.D. REFERRING PHYSICIAN: Mg Aranda D.O. HISTORY OF PRESENT ILLNESS: This is an 79-year-old male patient with abdominal pain, weakness, and urinary tract infection. This patient came into the hospital at [facility] for the reasons of abdominal pain, weakness, urinary tract infection, but the patient had altered mental status worsened and decline in cognition because of the stress of his medical illness. That is why, his attending physician has requested daily psychiatric consultation. I saw and assessed this patient at bedside. He appears to be at baseline. Currently, he is more calm, cooperative and denies suicidal or homicidal thoughts. PAST PSYCHIATRIC HISTORY: History of major depressive disorder, severe, recurrent with psychotic features, rule out dementia with psychosis. He has been seen by Psychiatry numerous times as well as myself and by my group. PAST MEDICAL HISTORY: Urinary tract infection, abdominal pain, weakness. See Internal Medicine note for further details. ALLERGIES: No known drug allergies. PSYCHOTROPIC MEDICATIONS: On admission, please see the MAR. SUBSTANCE ABUSE HISTORY: Denies. FAMILY PSYCHIATRIC HISTORY: Denies. PAIN ASSESSMENT: 10/20 pain. DEVELOPMENTAL PROBLEMS: Denies. SOCIAL HISTORY: [facility] Financially supported by [employer] and Medicare. MENTAL STATUS EXAMINATION: This is an 79-year-old male. Appearance is disheveled. Attitude, irritable and agitated. Affect, guarded and restricted. Intellect poor. Mood, depressed and anxious. Motor activity, psychomotor agitation. Attention is poor. Orientation x1. Speech is normal volume, but slurred. Thought process, disorganized and illogical. Insight and judgment is fair. DIAGNOSIS: Major depressive disorder, severe, recurrent with psychotic features, rule out dementia with psychosis. PLAN: Continue to treat this patient with psychotropic medications to clear disorganized thought process and help stabilize his mood. Provided him with 20 minutes of cognitive behavioral therapy to help him identify his automatic negative thoughts and convert negative thoughts to more positive thoughts to reduce depression, anxiety, and mood lability. I have psychiatrically cleared this patient for discharge morning. Chart reviewed. Discussed the staff. I would like to thank, Dr. Mg Aranda, for this interesting consultation. Valentino Bryan M.D. DR: TIM JOB#: [id number] CC:
--- NOTE | 2019-04-23 13:03 | Discharge Summary ---
Discharge Summary Discharge Summary _ DATE OF ADMISSION: 04/18/2019 DATE OF DISCHARGE: 04/22/2019 DISCHARGED BY: Dr Aranda REASON FOR ADMISSION: 79 years old male with past medical history of atrial fibrillation, BPH, dementia, psychiatric history, resident of [facility], presented to emergency room for evaluation due to abdominal pain and distention for 1 day. Patient by himself nonverbal and was unable to provide any additional history. No reported fever or chills. No reported chest pain. No nausea or vomiting. Upon evaluation vital signs were stable. No fever. Laboratory work-up revealed leukocytosis with WBC 14.8, hemoglobin 12.2, hematocrit 34.4. BUN 29, creatinine 1.6. Glucose 151. Stable LFT and lipase. Albumin 3.4. Urinalysis was grossly positive for UTI. CT of the abdomen pelvis revealed large amount of stool in the rectum. Fecal impaction should be considered. Roberts catheter with some gas in the bladder. The bladder appeared decompressed. There was a question of some mild infiltration of the fat adjacent to the bladder. Cystitis cannot be excluded. Bilateral moderate hydronephrosis without evidence for ureteral stone. This may be related to a prior bladder outlet obstruction. The prostate gland was enlarged, measuring 5.5 x 4.1 cm in transverse dimensions. Mild bilateral perinephric stranding , which may be related to chronic scarring. An acute infectious/inflammatory process such as acute pyelonephritis could not be excluded. In the emergency department patient started on the IV fluids and broad-spectrum antibiotics. Patient subsequently admitted for further management. CONSULTANTS: hospitalist Dr. Escobedo ID specialist Dr. Seymour psychiatrist Dr. Bryan HOSPITAL COURSE: Patient admitted and started on broad-spectrum antibiotic and IV fluids. Infectious disease specialist followed. Urine culture revealed Staph epidermidis. Blood cultures were negative. Leukocytosis subsequently resolved. No fevers. Patient was on antibiotic as per ID specialist recommendation. Pyridium provided for comfort as needed. Patient will need to complete antibiotic at the facility as specified by infectious disease specialist. Renal parameters and electrolytes were closely monitored. Electrolytes corrected as needed, and nephrotoxins were avoided. BUN from initial 29 down to 19, and creatinine from 1.6 down to 1.3. Acute kidney injury resolved. SNF medication were resumed. Flomax continued. DVT prophylaxis provided. Bowel regimen instituted. Psychiatrist seen and evaluated patient . Psychiatric medication regimen was optimized. Cognitive behavioral therapy provided. Patient clinically stabilized and was ready for transfer back to [facility] for continuation of care. FINAL DIAGNOSES: Pyelonephritis Renal insufficiency due to acute kidney injury -resolved BPH Urinary retention Schizophrenia Major depressive disorder, severe, recurrent with psychotic features DISCHARGE MEDICATIONS: See Medication Reconciliation list. DISCHARGE INSTRUCTIONS: Patient was discharged to the [facility]. Follow up with medical doctor at the facility. I have been assigned to dictate discharge summary for this account. I was not involved in the patient's management. Yvonne Lopez NP Apr 23, 2019 13:03
== END 2019-04-22 14:02 | DRG 690 ==
LOC: EDBD 20:04 → EMR 21:30 → EDBEDREQ 22:22 → 4E 22:30
DX: N12 Tubulo-interstitial nephritis, not specified as acute or chronic (principal); F33.3 Major depressive disorder, recurrent, severe with psychotic symptoms; F20.0 Paranoid schizophrenia; N40.0 Benign prostatic hyperplasia without lower urinary tract symptoms; I48.91 Unspecified atrial fibrillation; N40.1 Benign prostatic hyperplasia with lower urinary tract symptoms; R33.8 Other retention of urine; N17.9 Acute kidney failure, unspecified; Z79.82 Long term (current) use of aspirin; F03.90 Unspecified dementia, unspecified severity, without behavioral disturbance, psychotic disturbance, mood disturbance, and anxiety
CPT/HCPCS: 36415; 74176; 80048; 80053; 81003; 83690; 83735; 84100; 85007; 85025; 85651; 86140; 87040; 87081; 87086; 87181; 94664; 96360; 96361; 99285